=== PATIENT | male | born 1935 | race Caucasian/White ===

== ENCOUNTER 2017-10-22 09:04 | Day surgery (SDC) | payer OTHER ==
[2017-10-21 11:33] VITALS: BMI 26.4
[2017-10-22] MEDS ORDERED: PROPOFOL 20 ML ONE ×3 (09:58)
[2017-10-22 10:45] VITALS: TEMP 98
[2017-10-22 11:01] VITALS: PULSE 61
[2017-10-22 11:48] VITALS: BP 120/70
--- NOTE | 2017-10-25 13:04 | PATH ---
Surgical Pathology Report Patient Name: CHIKA BERRY [facility]. Rec. #: [id number] /Age/Gender: 1935 (Age: 82) / M Account: [id number] Location: ASU-ENDOSCOPY Taken: 10/22/2017 Received: 10/22/2017 Reported: 10/25/2017 Physicians: Bonita Lemus M.D. Specimen(s) Received BX RIGHT COLON POLYP Clinical History Adenoma surveillance Polyp, diverticulosis Final Diagnosis COLON, RIGHT, BIOPSY: TUBULAR ADENOMA. Electronically Signed Conrado Trevino M.D. Gross Description Received in formalin, labeled "biopsy right colon polyp" are 2 rodgers, irregular portions of soft tissue measuring 0.2 cm. in greatest dimension. The specimens are submitted in toto in one cassette. [facility]/10/22/2017 [facility]/10/22/2017
== END 2017-10-22 11:48 | disposition home or self-care (01) ==
LOC: JASU-ENDO 09:04
PROVIDERS: ATTEND Internal Medicine Gastroenterology
PROC: 0DBK8ZX Excision of Ascending Colon, Via Natural or Artificial Opening Endoscopic, Diagnostic (ICD-10-PCS; principal; 2017-10-22 10:00)
DX: Z86.010 Personal history of colon polyps (principal); D12.2 Benign neoplasm of ascending colon; K64.8 Other hemorrhoids; K57.30 Diverticulosis of large intestine without perforation or abscess without bleeding
CPT/HCPCS: 88305-TC

== ENCOUNTER 2019-05-16 08:14 | Day surgery (SDC) | payer OTHER ==
[2019-05-09 12:41] VITALS: BMI 26.0
[2019-05-16] MEDS ORDERED: CYCLOPENTOLATE HCL 1% OPHTH SOLN 2 ML BOTTLE ONE (08:37)
[2019-05-16] MEDS ORDERED: TROPICAMIDE 1% OPHTH SOLN 15 ML BOTTLE ONE (08:37)
[2019-05-16] MEDS ORDERED: OFLOXACIN 0.3% OPHTHALMIC SOLUTION 5 ML BOTTLE ONE (08:37)
[2019-05-16] MEDS ORDERED: KETOROLAC TROMETHAMINE 0.5% EYE DROP 1 DROP DROPS ONE (08:37)
[2019-05-16] MEDS ORDERED: PHENYLEPHRINE 2.5% OPHTH SOLN 15 ML BOTTLE ONE (08:37)
[2019-05-16] MEDS: KETOROLAC TROMETHAMINE 0.5% EYE DROP 1 DROP DROPS OS SCH ×5 (09:15→09:35)
[2019-05-16] MEDS: OFLOXACIN 0.3% OPHTHALMIC SOLUTION 5 ML BOTTLE OS SCH ×5 (09:15→09:35)
[2019-05-16] MEDS: PHENYLEPHRINE 2.5% OPHTH SOLN 15 ML BOTTLE OS SCH ×5 (09:15→09:35)
[2019-05-16] MEDS: CYCLOPENTOLATE HCL 1% OPHTH SOLN 2 ML BOTTLE OS SCH ×5 (09:15→09:35)
[2019-05-16] MEDS: TROPICAMIDE 1% OPHTH SOLN 15 ML BOTTLE OS SCH ×5 (09:15→09:35)
[2019-05-16] MEDS ORDERED: MIDAZOLAM HCL 2 MG/2 ML SINGLE DOSE VIAL ONE ×2 (09:53→10:35)
[2019-05-16] MEDS ORDERED: POVIDONE-IODINE 5% OPHTHALMIC PREP 30 ML SOLUTION ONE (09:56)
[2019-05-16] MEDS ORDERED: EPI-SHUGARCAINE (EPINEPHRINE 0.025% & LIDOCAINE-PF 0.75%) 4ML ONE (09:56)
[2019-05-16] MEDS ORDERED: ACETAMINOPHEN 325 MG TABLET (FP) PO PRN (11:36)
[2019-05-16 11:54] VITALS: TEMP 97.6
[2019-05-16 12:30] VITALS: BP 133/68; PULSE 69
--- NOTE | 2019-05-16 12:55 | OP ---
DATE OF OPERATION: 05/16/2019 PREOPERATIVE DIAGNOSIS: Cataract, left eye, myotic pupil. POSTOPERATIVE DIAGNOSIS: Cataract, left eye, myotic polyp. PROCEDURE: Cataract extraction via phacoemulsification with insertion of posterior chamber lens implant, left eye using iris retractors. SURGEON: Rosalio Thomson MD SILVERWARE BUFFING MACHINE OPERATOR: Lauren Schroeder MD ANESTHESIA: Topical with sedation. ESTIMATED BLOOD LOSS: Less than 1 mL. COMPLICATIONS: None. SPECIMENS: None. DESCRIPTION OF PROCEDURE: The patient was identified in the holding area. After all risks, benefits, and alternatives were explained to the patient, informed consent was obtained. The left eye was marked with a marking pen. The patient then entered the operating room on an eye stretcher. After a formal time-out was performed, topical tetracaine eye drops were instilled onto the left eye. The left eye was then prepped and draped in the usual sterile fashion. An eyelid speculum was placed beneath the eyelid of the left eye. Then it was noted that there was a myotic pupil, which was about 3-4 mm. An inferotemporal paracentesis incision was created using a 15-degree blade. Topical preservative-free epinephrine and preservative-free lidocaine was then injected into the anterior chamber with an adequate dilation. Therefore, 5 equally spaced paracentesis incisions were created using a 15-degree blade, and an iris hook was inserted through each of the 5 created paracentesis incisions. dilated the pupil to about 6 mm. Then viscoelastic was injected into the anterior chamber. A 2.4-mm keratome blade was then used to make a superotemporal incision. A 360-degree continuous curvilinear capsulorrhexis was then created using bent cystotome and Utrata forceps. Hydrodissection was performed using balanced saline solution on a cannula. Phacoemulsification was introduced to disassemble and remove the nucleus in its entirety. Irrigation/aspiration was then used to remove any remaining cortical material from the eye. The capsular bag was reformed using viscoelastic. An Keith Model [id number] with a power of 20.5 diopter serial number [id number] was inspected and found to be defect free and injected into the capsular bag. Irrigation/aspiration was then used to remove any remaining viscoelastic from the eye. All iris hooks were then removed from the eye totaling 5. Then irrigation/aspiration was then used to remove any remaining debris and viscoelastic from the eye. The anterior chamber was reformed using balanced saline solution. Then all wounds were hydrated with balanced saline solution and noted to be watertight. The anterior chamber was deep. The lens was perfectly centered in the capsular bag. The pupil was round. The iris was round, and there was a red reflex present, and the eye had adequate pressure. Topical antibiotic eyedrops and ointment were then administered to the left eye. The eyelid speculum was removed from the left eye. The left eye was shielded. The patient tolerated the procedure well. Left the operating room in stable condition to follow up in the eye clinic tomorrow morning at 10 o'clock. ROSALIO THOMSON M.D. NELI/[id number]
== END 2019-05-16 12:40 | disposition home or self-care (01) ==
LOC: FASU 08:14
PROVIDERS: ATTEND Ophthalmology
PROC: 08RK3JZ Replacement of Left Lens with Synthetic Substitute, Percutaneous Approach (ICD-10-PCS; principal; 2019-05-16 10:42)
DX: H26.9 Unspecified cataract (principal); H57.03 Miosis

== ENCOUNTER 2019-05-23 09:46 | Day surgery (SDC) | payer OTHER ==
[2019-05-18 11:09] VITALS: BMI 26.0
[2019-05-23] MEDS ORDERED: CYCLOPENTOLATE HCL 1% OPHTH SOLN 2 ML BOTTLE ONE (09:53)
[2019-05-23] MEDS ORDERED: KETOROLAC TROMETHAMINE 0.5% EYE DROP 1 DROP DROPS ONE (09:54)
[2019-05-23] MEDS ORDERED: TROPICAMIDE 1% OPHTH SOLN 15 ML BOTTLE ONE (09:54)
[2019-05-23] MEDS ORDERED: PHENYLEPHRINE 2.5% OPHTH SOLN 15 ML BOTTLE ONE (09:54)
[2019-05-23] MEDS ORDERED: OFLOXACIN 0.3% OPHTHALMIC SOLUTION 5 ML BOTTLE ONE (09:54)
[2019-05-23] MEDS: TROPICAMIDE 1% OPHTH SOLN 15 ML BOTTLE OD SCH ×5 (10:20→10:40)
[2019-05-23] MEDS: KETOROLAC TROMETHAMINE 0.5% EYE DROP 1 DROP DROPS OD SCH ×5 (10:20→10:40)
[2019-05-23] MEDS: CYCLOPENTOLATE HCL 1% OPHTH SOLN 2 ML BOTTLE OD SCH ×5 (10:20→10:40)
[2019-05-23] MEDS: PHENYLEPHRINE 2.5% OPHTH SOLN 15 ML BOTTLE OD SCH ×5 (10:20→10:40)
[2019-05-23] MEDS: OFLOXACIN 0.3% OPHTHALMIC SOLUTION 5 ML BOTTLE OD SCH ×5 (10:20→10:40)
[2019-05-23] MEDS ORDERED: MIDAZOLAM HCL 2 MG/2 ML SINGLE DOSE VIAL ONE ×2 (10:48→11:34)
[2019-05-23] MEDS ORDERED: POVIDONE-IODINE 5% OPHTHALMIC PREP 30 ML SOLUTION ONE (10:51)
[2019-05-23] MEDS ORDERED: EPI-SHUGARCAINE (EPINEPHRINE 0.025% & LIDOCAINE-PF 0.75%) 4ML ONE (10:51)
[2019-05-23] MEDS ORDERED: ACETAMINOPHEN 325 MG TABLET (FP) PO PRN (12:45)
[2019-05-23 13:02] VITALS: TEMP 98.3
[2019-05-23 13:33] VITALS: BP 132/69; PULSE 73
--- NOTE | 2019-05-23 14:09 | OP ---
DATE OF OPERATION: 05/23/2019 PREOPERATIVE DIAGNOSIS: Cataract, right eye. POSTOPERATIVE DIAGNOSIS: Cataract, right eye. PROCEDURE: Cataract extraction via phacoemulsification with insertion of posterior chamber lens implant, right eye. SURGEON: Rosalio Thomson MD RULING MACHINE OPERATOR: Lauren Schroeder MD ANESTHESIA: Topical with sedation. ESTIMATED BLOOD LOSS: Less than 1 mL. COMPLICATIONS: None. SPECIMENS: None. DESCRIPTION OF PROCEDURE: The patient was identified in the holding area. After all risks, benefits, and alternatives were explained to the patient, informed consent was obtained. The right eye was marked with a marking pen. The patient then entered the operating room on an eye stretcher, and after a formal time-out was performed, topical tetracaine eye drops were instilled onto the right eye. The patient was then instructed to sit up and look straight ahead, and the cardinal axes of astigmatism were marked using a Toric bubble marker and a Toric marking pen. The patient was then instructed to lay back down, and the right eye was prepped and draped in the usual sterile fashion. An eyelid speculum was placed beneath the eyelid of the right eye. Then the axis of astigmatism was marked onto the cornea using a Toric dial and a Toric marking pen, which was noted to be 165 degrees. Then a superotemporal paracentesis incision was created using a 15-degree blade. Topical preservative-free epinephrine and preservative-free lidocaine were then injected into the anterior chamber. It was then noted that the pupil was still myotic, and due to the fact that the patient was on Flomax, it was decided to put iris hooks into the eye to capture and dilate the pupil to about 6 mm. Therefore, 5 equally spaced paracentesis incisions were created using a 15-degree blade, and an iris hook was inserted through each of the 5 paracentesis incisions to again capture the pupil and then dilate to about 6 mm. Then viscoelastic was injected into the anterior chamber. A 2.4-mm keratome blade was then used to make an infratemporal incision. A 360-degree continuous curvilinear capsulorrhexis was then created using bent cystotome and Utrata forceps. Hydrodissection was performed using balanced saline solution on a cannula. Phacoemulsification was introduced to disassemble and remove the nucleus in its entirety. Irrigation/aspiration was then used to remove any remaining cortical material from the eye. The capsular bag was reformed using viscoelastic. An Keith Model [id number] with a power of 20.0 diopter serial number [id number] was inspected and found to be defect free and injected into the capsular bag. Irrigation/aspiration was then used to remove any remaining viscoelastic from the eye. The intraocular lens was rotated so that the axis of astigmatism on the optic matched the axis of astigmatism on the cornea, which was noted to be 165 degrees. Then all iris hooks were removed from the eye completely and irrigation, aspiration was then used a final time to remove any remaining debris from the eye. Then all wounds were hydrated with balanced saline solution and noted to be watertight. The lens was perfectly centered in the capsular bag with the axis of astigmatism at 165 degrees. The anterior chamber was deep. The eye had an adequate pressure, and there was red reflex present. Topical antibiotic eyedrops and ointment were then administered to the right eye. The eyelid speculum was removed from the right eye. The right eye was shielded. The patient tolerated the procedure well. Left the operating room in stable condition to follow up in the eye clinic tomorrow morning at 10 o'clock. ROSALIO THOMSON M.D. [id number]
== END 2019-05-23 13:40 | disposition home or self-care (01) ==
LOC: FASU 09:46
PROVIDERS: ATTEND Ophthalmology
PROC: 08RJ3JZ Replacement of Right Lens with Synthetic Substitute, Percutaneous Approach (ICD-10-PCS; principal; 2019-05-23 11:35)
DX: H26.9 Unspecified cataract (principal)

== ENCOUNTER 2019-07-11 17:50 | Inpatient (IN) | payer OTHER ==
--- NOTE | 2019-07-11 18:03 | PDOC ---
History of Present Illness - General Chief Complaint: Respiratory Stated Complaint: FEVER & COUGH Time Seen by Provider: 07/11/19 18:03 - History of Present Illness Initial Comments: 07/11/19 18:50 Chief complaint: Shaking chills HPI: Sudden onset of fever today with shaking chills. Worsening of chronic cough and intermittent shortness of breath with coughing. Review of systems: No chest pain, abdominal pain, vomiting or diarrhea, dysuria frequency urgency hesitancy or hematuria, new skin rashes. Remainder of systems reviewed and negative Past medical history: Chronic cough,, no definitive diagnosis. BPH, COPD, HBP, elevated cholesterol, coronary artery disease. Primary physician Dr. Gibbons and Dr. Pink, cardiology. Social history: Lives with family, denies drugs alcohol or tobacco. Breathing problems have limited his activity Family history: Reviewed and noncontributory Physical exam: Alert, mild respiratory distress with intractable coughing, no definite tachypnea or dyspnea between coughing spells. Cooperative Temperature 103 degrees. Remainder vital signs stable ENT clear Neck supple without bruit mass or nodes Chest with decreased breath sounds bilaterally, occasional end expiratory wheezes at both bases posteriorly, no rales or rhonchi. Patient is not tachypneic or dyspneic between coughing spells CV S1-S2 distant without murmur rub or gallop pulses full and symmetric no JVD or edema no bruits Abdomen soft nontender without mass organomegaly No CVAT Neurological C2 to 12 intact. Strength full and symmetric. No focal sensorimotor deficits. Gait stable and unimpaired Extremities no CCE Impression: Sudden onset of febrile illness, superimposed on worsening cough. Rule out pneumonia, severe bronchitis, or occult UTI Plan: CBC and chemistries, urinalysis blood and urine cultures chest x-ray, intravenous fluids, analgesic/antipyretic, and further evaluation depending on results of lab work and imaging studies. Past History - Past Medical History Allergies/Adverse Reactions: Allergies Allergy/AdvReac Type Severity Reaction Status Date / Time clindamycin Allergy Verified 05/23/19 10:18 Home Medications: Ambulatory Orders Aspirin [ASA -] 81 mg PO DAILY 06/25/14 Atorvastatin Ca [Lipitor] 10 mg PO Q48H 06/25/14 Folic Acid - 1 tab PO DAILY 06/25/14 Albuterol Sulfate [Proair Hfa -] 1 - 2 inh PO QID #1 inhaler 06/27/14 Amlodipine Besylate [Norvasc -] 2.5 mg PO DAILY #30 tablet 06/27/14 Budesonide/Formeterol Fumarate [SYMBICORT 160/4.5mcg -] 2 inh IH BID #1 inhaler 06/27/14 Tiotropium [place] [Spiriva] 1 inh PO DAILY #1 inhaler 06/27/14 Famotidine [Pepcid] 40 mg PO ASDIR 10/21/17 Multivitamin [Multiple Vitamins] 1 each PO DAILY 10/21/17 [place]-3 Acid Ethyl Esters 1 gm PO DAILY 10/21/17 Tamsulosin HCl 0.4 mg PO DAILY 10/21/17 Vitamin B Complex 1 each PO DAILY 10/21/17 Esomeprazole Magnesium [Nexium 24Hr] 40 mg PO ASDIR 05/09/19 Prednisolone Acetate/Pf [Prednisolone Acet 1% Eye Drop] 5 ml OS BID 07/11/19 Prednisone 5 mg PO ASDIR 07/11/19 Sodium Chloride [Daria-128] 1 applic OS HS 07/11/19 Sodium Chloride [Daria-128] 15 ml OS BID 07/11/19 Anemia: No Asthma: (EMPHYSEMA) 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) Cardiac Disorders: Yes (ASHD, 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, MODERATE AORTIC STENOSIS ) CVA: No COPD: Yes CHF: No Dementia: No Diabetes: No GI Disorders: Yes (GERD, COLON ADENOMAS, DIVERTICULOSIS) Disorders: Yes (BPH) HTN: Yes Hypercholesterolemia: Yes Liver Disease: No Psychiatric Problems: Yes Seizures: No Thyroid Disease: No - Surgical History Abdominal Surgery: No Appendectomy: No Cardiac Surgery: No Cholecystectomy: No Lung Surgery: No Neurologic Surgery: No Orthopedic Surgery: Yes (ROTATOR CUFF RIGHT SHOULDER) - Immunization History Immunization Up to Date: No - Psycho Social/Smoking Cessation Hx Smoking History: Former smoker Have you smoked in the past 12 months: No Number of Cigarettes Smoked Daily: 0 If you are a former smoker, when did you quit?: 1963 Hx Alcohol Use: Yes (WINE OCC) Drug/Substance Use Hx: No Substance Use Type: None Hx Substance Use Treatment: No ED Treatment Course - LABORATORY CBC & Chemistry Diagram: 07/12/19 08:37 07/12/19 08:37 Medical Decision Making - Medical Decision Making 07/13/19 07:32 Patient clinically and hemodynamically stable. Except for fever, no significant signs of sepsis. Laboratory studies pending. Signed out to Dr. Guevara 7 PM pending lab results, further diagnostic testing and treatment. Discharge - Discharge Information Problems reviewed: Yes Clinical Impression/Diagnosis: Pneumonia Qualifiers: Pneumonia type: due to unspecified organism Laterality: bilateral Lung location : lower lobe of lung Qualified Code(s): J18.9 - Pneumonia, unspecified organism Condition: Good - Follow up/Referral - Patient Discharge Instructions - Post Discharge Activity
[2019-07-11] MEDS ORDERED: SODIUM CHLORIDE 1,000 ML IV STA (18:05)
[2019-07-11 19:19] LABS: BASO % 2.6 % (0-2.0); EOS % 0.2 % (0-4.5); HEMATOCRIT 47.6 % (35.4-49); HEMOGLOBIN 15.8 GM/dl (11.7-16.9); LYMPH % 3.9 % (8-40); MCH 30.8 pg (25.7-33.7); MCHC 33.2 g/dl (32.0-35.9); MEAN CELL VOLUME 92.7 fl (80-96); MONO % 2.9 % (3.8-10.2); NEUT % 90.4 % (42.8-82.8); PLATELET COUNT 214 K/MM3 (134-434); RBC 5.13 M/mm3 (4.00-5.60); RDW 12.3 % (11.9-15.9); WHITE BLOOD COUNT 13.7 K/mm3 (4.0-10.8)
[2019-07-11] MEDS ORDERED: CEFTRIAXONE 1 GM in DEXTROSE 5%-WATER - 50 ML IVPB ONE (19:34)
[2019-07-11] MEDS ORDERED: ACETAMINOPHEN INJECTION 100 ML IVPB ONE (19:45)
[2019-07-11] MEDS ORDERED: ACETAMINOPHEN 1000 MG/100 ML VIAL (NON FORMULARY) IVPB ONE (19:45)
[2019-07-11] MEDS ORDERED: cefTRIAXone SODIUM 1 GM VIAL ONE (19:45)
[2019-07-11] MEDS ORDERED: AZITHROMYCIN IVPB 500 MG in DEXTROSE 5%-WATER - 250 ML IVPB ONE (19:48)
[2019-07-11 20:01] LABS: ALBUMIN 4.1 g/dl (3.4-5.0); BILIRUBIN,TOTAL 0.6 mg/dl (0.2-1); CALCIUM 8.9 mg/dl (8.5-10); CREATININE 1.3 mg/dl (0.55-1.3); POTASSIUM 3.9 mmol/L (3.5-5.1); TOT PROT 7.2 g/dl (6.4-8.2)
[2019-07-11] MEDS ORDERED: AZITHROMYCIN 500 MG VIAL IVPB ONE (20:03)
--- NOTE | 2019-07-11 20:23 | PDOC ---
*Physical Exam - Vital Signs Last Vital Signs Temp Pulse Resp BP Pulse Ox 103.0 F H 94 H 20 125/70 94 L 07/11/19 19:40 07/11/19 20:00 07/11/19 19:40 07/11/19 19:40 07/11/19 20:00 ED Treatment Course - LABORATORY CBC & Chemistry Diagram: 07/11/19 19:13 07/11/19 19:49 - ADDITIONAL ORDERS Additional order review: Laboratory Results 07/11/19 07/11/19 19:13 19:13 Sodium Cancelled Potassium Cancelled Chloride Cancelled Carbon Dioxide Cancelled Anion Gap Cancelled BUN Cancelled Creatinine Cancelled Est GFR (CKD-EPI)AfAm Cancelled Est GFR (CKD-EPI)NonAf Cancelled Random Glucose Cancelled Lactic Acid Cancelled Calcium Cancelled Total Bilirubin Cancelled AST Cancelled ALT Cancelled Alkaline Phosphatase Cancelled Creatine Kinase Cancelled Total Protein Cancelled Albumin Cancelled 07/11/19 19:13 RBC 5.13 MCV 92.7 MCHC 33.2 RDW 12.3 MPV 9.0 Neutrophils % 90.4 H D Lymphocytes % 3.9 L D Monocytes % 2.9 L Eosinophils % 0.2 D Basophils % 2.6 H D - Medications Given in the ED: ED Medications Discontinued Medications Generic Name Dose Route Start Last Admin Trade Name Thomasq PRN Reason Stop Dose Admin Acetaminophen 1,000 mg 07/11/19 19:45 07/11/19 19:45 Ofirmev Injection - IVPB 07/11/19 19:46 1,000 mg ONCE ONE Administration Sodium Chloride 1,000 mls @ 1,000 mls/hr 07/11/19 18:05 07/11/19 19:05 Normal Saline - IV 07/11/19 19:04 1,000 mls/hr ASDIR STA Administration Ceftriaxone Sodium 1 gm/ 50 mls @ 200 mls/hr 07/11/19 19:34 07/11/19 19:56 Dextrose IVPB 07/11/19 19:48 200 mls/hr ONCE ONE Administration Protocol ED Progress Note - Progress Note Progress Note: 07/11/19 20:22 Care of this patient was transferred to pa from Dr. Gurvinder molina at 1900 hrs. Patient is an 84-year-old male who comes in with cough and congestion. Patient has a fever of 103 here in the ED. Patient has a sepsis work-up initiated that is still pretty much all pending. Patient source is most likely pneumonia. Patient's chest x-ray does not show a definite infiltrate however there is a probable infiltrate bilateral. Antibiotics initiated including ceftriaxone and azithromycin. Influenza screen sent as well as MRSA screen as patient has a questionable history of MRSA in the past. 07/11/19 20:58 Patient will be admitted to an inpatient bed for pneumonia. Discharge - Discharge Information Problems reviewed: Yes Clinical Impression/Diagnosis: Pneumonia Qualifiers: Pneumonia type: due to unspecified organism Laterality: bilateral Lung location : lower lobe of lung Qualified Code(s): J18.9 - Pneumonia, unspecified organism Condition: Good - Admission Yes - Follow up/Referral Referrals: Liban Gibbons MD [Primary Care Provider] - - Patient Discharge Instructions - Post Discharge Activity
[2019-07-11 22:59] VITALS: BMI 26.4
[2019-07-11] MEDS ORDERED: SODIUM CHLORIDE 1,000 ML IV SCH (23:30)
[2019-07-11] MEDS: ATORVASTATIN CA 10 MG TABLET (FP) PO SCH (23:44)
[2019-07-12] MEDS: ACETAMINOPHEN 325 MG TABLET (FP) PO PRN (00:54)
[2019-07-12] MEDS: ALBUTEROL SO4 2.5/IPRATROPIUM 0.5 INH SOL 3 ML VIAL.NEB. NEB SCH ×4 (06:16→20:30)
[2019-07-12] MEDS: TAMSULOSIN HCL 0.4 MG CAP PO SCH (08:47)
[2019-07-12 09:05] LABS: EOS % 0.3 % (0-4.5); HEMATOCRIT 39.6 % (35.4-49); HEMOGLOBIN 13.2 GM/dl (11.7-16.9); MCH 30.8 pg (25.7-33.7); MCHC 33.3 g/dl (32.0-35.9); MEAN CELL VOLUME 92.4 fl (80-96); MEAN PLT VOLUME 9.2 fl (7.5-11.1); MONO % 10.5 % (3.8-10.2); NEUT % 82.2 % (42.8-82.8); PLATELET COUNT 164 K/MM3 (134-434); RBC 4.28 M/mm3 (4.00-5.60); RDW 12.1 % (11.9-15.9); WHITE BLOOD COUNT 15.5 K/mm3 (4.0-10.8)
[2019-07-12] MEDS: FOLIC ACID 1 MG TABLET (FP) PO SCH (09:13)
[2019-07-12] MEDS: ASPIRIN 81 MG CHEWABLE TABLETS PO SCH (09:13)
[2019-07-12] MEDS: amLODIPine BESYLATE 2.5 MG TABLET (FP) PO SCH (09:14)
[2019-07-12] MEDS: PANTOPRAZOLE 40 MG TABLET (FP) PO SCH (09:14)
[2019-07-12] MEDS: CEFTRIAXONE 1 GM in DEXTROSE 5%-WATER - 50 ML IVPB SCH (09:14)
[2019-07-12 09:15] LABS: ALBUMIN 3.4 g/dl (3.4-5.0); BILIRUBIN,TOTAL 0.9 mg/dl (0.2-1); CALCIUM 8.4 mg/dl (8.5-10); CREATININE 1.1 mg/dl (0.55-1.3); MAGNESIUM 1.8 mg/dL (1.8-2.4); POTASSIUM 3.5 mmol/L (3.5-5.1); TOT PROT 5.8 g/dl (6.4-8.2)
[2019-07-12] MEDS ORDERED: SODIUM CHLORIDE OS SCH ×2 (10:00→22:00)
[2019-07-12] MEDS ORDERED: PATIENT'S OWN MEDICATION (NON-FORMULARY) (Prednisolone Acetate/Pf [Prednisolone Acet 1% Ey OS SCH (10:00)
[2019-07-12] MEDS ORDERED: [UNRECOGNIZED DRUG - OTHER] OS SCH (10:00)
[2019-07-12] MEDS: BUDESONIDE/FORMETEROL FUMARATE 160/4.5 mcg INHALER IH SCH ×2 (10:21→21:24)
[2019-07-12] MEDS: AZITHROMYCIN IVPB 250 MG in DEXTROSE 5%-WATER - 250 ML IVPB SCH (10:22)
[2019-07-12] MEDS: TIOTROPIUM BROMIDE 2.5 MCG (SPIRIVA) RESPIMAT INHALER IH SCH (10:50)
--- NOTE | 2019-07-12 17:44 | EKG ---
Test Reason : Blood Pressure : / mmHG Vent. Rate : 104 BPM Atrial Rate : 104 BPM P-R Int : 162 ms QRS Dur : 074 ms QT Int : 308 ms P-R-T Axes : 077 -41 048 degrees QTc Int : 405 ms SINUS TACHYCARDIA POSSIBLE LEFT ATRIAL ENLARGEMENT LEFT AXIS DEVIATION ABNORMAL ECG WHEN COMPARED WITH ECG OF 27-JUL-2014 18:05, NO SIGNIFICANT CHANGE WAS FOUND BASELINE ARTIFACT Confirmed by LUZMARIA QUINN, CHANTALE ([id number]) on 07/12/2019 5:43:45 PM Referred By: DR VELA Confirmed By:CHANTALE DUTTA MD
--- NOTE | 2019-07-12 17:58 | HP ---
Documentation entered by Radha Bravo SCRIBE, acting as scribe for Vani Austin NP. CHIEF COMPLAINT: Fever, cough PCP: Dr. Gibbons Technology Resource Teacher: Joesph HISTORY OF PRESENT ILLNESS: Patient is an 84 year-old male with a PMH significant for HTN, HLD, CAD, COPD, chronic sinusitis, and BPH. Patient has had a chronic cough and fatigue for several months and has been seeing Dr. Gibbons for these complaints. Had CT chest on 06/15 which was reportedly unremarkable. Patient presented to [facility] for worsening cough, shaking chills, and SOB. He reported a fever at home to 103. Patient denies nausea, vomiting, diarrhea, or constipation. He denies chest pain , palpitations, diaphoresis, or lower extremity edema. He denies night sweats, hemoptysis, weight loss. 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 Drugs: none reported. Family history: father lung cancer, mother asthma Allergies clindamycin Allergy (Verified 05/23/19 10:18) HOME MEDICATIONS: Home Medications Medication Instructions Recorded Aspirin [ASA -] 81 mg PO DAILY 06/25/14 Atorvastatin Ca [Lipitor] 10 mg PO Q48H 06/25/14 Folic Acid - 1 tab PO DAILY 06/25/14 Albuterol Sulfate [Proair Hfa -] 1 - 2 inh PO QID #1 inhaler 06/27/14 Amlodipine Besylate [Norvasc -] 2.5 mg PO DAILY #30 tablet 06/27/14 Budesonide/Formeterol Fumarate 2 inh IH BID #1 inhaler 06/27/14 [SYMBICORT 160/4.5mcg -] Tiotropium [place] [Spiriva] 1 inh PO DAILY #1 inhaler 06/27/14 Famotidine [Pepcid] 40 mg PO ASDIR 10/21/17 Multivitamin [Multiple Vitamins] 1 each PO DAILY 10/21/17 [place]-3 Acid Ethyl Esters 1 gm PO DAILY 10/21/17 Tamsulosin HCl 0.4 mg PO DAILY 10/21/17 Vitamin B Complex 1 each PO DAILY 10/21/17 Esomeprazole Magnesium [Nexium 40 mg PO ASDIR 05/09/19 24Hr] Prednisolone Acetate/Pf 5 ml OS BID 07/11/19 [Prednisolone Acet 1% Eye Drop] Prednisone 5 mg PO ASDIR 07/11/19 Sodium Chloride [Daria-128] 1 applic OS HS 07/11/19 Sodium Chloride [Daria-128] 15 ml OS BID 07/11/19 REVIEW OF SYSTEMS CONSTITUTIONAL: +fever,+chills. Absent: generalized weakness,diaphoresis, malaise, loss of appetite, weight change HEENT: Absent: rhinorrhea, nasal congestion, throat pain, throat swelling, difficulty swallowing, mouth swelling, ear pain, eye pain, visual changes CARDIOVASCULAR: Absent: chest pain, syncope, palpitations, irregular heart rate, lightheadedness , peripheral edema RESPIRATORY: +cough,+shortness of breath Absent: dyspnea with exertion, orthopnea, wheezing, stridor, hemoptysis GASTROINTESTINAL: Absent: abdominal pain, abdominal distension, nausea, vomiting, diarrhea, constipation, melena, hematochezia GENITOURINARY: Absent: dysuria, frequency, urgency, hesitancy, hematuria, flank pain, genital pain MUSCULOSKELETAL: Absent: myalgia, arthralgia, joint swelling, back pain, neck pain SKIN: Absent: rash, itching, pallor HEMATOLOGIC/IMMUNOLOGIC: Absent: easy bleeding, easy bruising, lymphadenopathy, frequent infections ENDOCRINE: Absent: unexplained weight gain, unexplained weight loss, heat intolerance, cold intolerance NEUROLOGIC: Absent: headache, focal weakness or paresthesias, dizziness, unsteady gait, seizure, mental status changes, bladder or bowel incontinence PSYCHIATRIC: Absent: anxiety, depression, suicidal or homicidal ideation, hallucinations. PHYSICAL EXAMINATION Vital Signs - 24 hr 07/11/19 07/11/19 07/11/19 18:02 19:40 20:00 Temperature 103.0 F H 103.0 F H Pulse Rate 108 H 94 H Pulse Rate [ 91 H 98 H Apical] Respiratory 22 H 20 21 H Rate Blood Pressure 137/85 Blood Pressure 125/70 114/67 [Right Arm] O2 Sat by Pulse 94 L 94 L 94 L Oximetry (%) 07/11/19 07/11/19 07/11/19 21:00 21:50 22:00 Temperature 99 F Pulse Rate 93 H Pulse Rate [ 97 H Apical] Respiratory 17 18 Rate Blood Pressure 100/62 Blood Pressure 112/67 [Right Arm] O2 Sat by Pulse 94 L 96 96 Oximetry (%) 07/11/19 07/12/19 07/12/19 23:12 00:51 03:32 Temperature 98.6 F 99.1 F 98.4 F Pulse Rate 79 Pulse Rate [ Apical] Respiratory 18 Rate Blood Pressure 119/51 L Blood Pressure [Right Arm] O2 Sat by Pulse 93 L Oximetry (%) 07/12/19 07/12/19 05:52 05:53 Temperature 99.1 F Pulse Rate 82 Pulse Rate [ Apical] Respiratory 17 Rate Blood Pressure 120/60 Blood Pressure [Right Arm] O2 Sat by Pulse 94 L Oximetry (%) GENERAL: Awake, alert, and fully oriented, in no acute distress. HEAD: Normal with no signs of trauma. EYES: Pupils equal, round and reactive to light, extraocular movements intact, sclera anicteric, conjunctiva clear. No lid lag. EARS, NOSE, THROAT: Ears normal, nares patent, oropharynx clear without exudates. Moist mucous membranes. NECK: Normal range of motion, supple without lymphadenopathy, JVD, or masses. LUNGS: incessant cough with expiration, no adventitious sounds appreciated HEART: Regular rate and rhythm, normal S1 and S2 ABDOMEN: Soft, nontender, not distended MUSCULOSKELETAL: Normal range of motion at all joints. No bony deformities or tenderness. No CVA tenderness. UPPER EXTREMITIES: 2+ pulses, warm, well-perfused. No cyanosis. No clubbing. No peripheral edema. LOWER EXTREMITIES: 2+ pulses, warm, well-perfused. No calf tenderness. No peripheral edema. NEUROLOGICAL: Cranial nerves II-XII intact. Normal speech. Normal gait. PSYCHIATRIC: Cooperative. Good eye contact. Appropriate mood and affect. SKIN: Warm, dry, normal turgor Laboratory Results - last 24 hr 07/11/19 07/11/19 07/11/19 19:13 19:13 19:13 WBC 13.7 H RBC 5.13 Hgb 15.8 Hct 47.6 MCV 92.7 MCH 30.8 MCHC 33.2 RDW 12.3 Plt Count 214 D MPV 9.0 Absolute Neuts (auto) 12.4 Neutrophils % 90.4 H D Lymphocytes % 3.9 L D Monocytes % 2.9 L Eosinophils % 0.2 D Basophils % 2.6 H D Sodium Cancelled Potassium Cancelled Chloride Cancelled Carbon Dioxide Cancelled Anion Gap Cancelled BUN Cancelled Creatinine Cancelled Est GFR (CKD-EPI)AfAm Cancelled Est GFR (CKD-EPI)NonAf Cancelled Random Glucose Cancelled Lactic Acid Cancelled Calcium Cancelled Magnesium Total Bilirubin Cancelled AST Cancelled ALT Cancelled Alkaline Phosphatase Cancelled Creatine Kinase Cancelled Creatine Kinase Index CK-MB (CK-2) Troponin I Total Protein Cancelled Albumin Cancelled Urine Color Urine Appearance Urine pH Urine Protein Urine Glucose (UA) Urine Ketones Urine Blood Urine Nitrite Urine Bilirubin Urine Urobilinogen Ur Leukocyte Esterase Influenza A (Rapid) Influenza B (Rapid) 07/11/19 07/11/19 07/11/19 19:23 19:28 19:49 WBC RBC Hgb Hct MCV MCH MCHC RDW Plt Count MPV Absolute Neuts (auto) Neutrophils % Lymphocytes % Monocytes % Eosinophils % Basophils % Sodium 134 L Potassium 3.9 Chloride 104 Carbon Dioxide 24 Anion Gap 6 L BUN 34.0 H Creatinine 1.3 Est GFR (CKD-EPI)AfAm 58.89 Est GFR (CKD-EPI)NonAf 50.81 Random Glucose 107 H Lactic Acid 2.0 Calcium 8.9 Magnesium Total Bilirubin 0.6 AST 23 ALT 26 Alkaline Phosphatase 61 Creatine Kinase 273 Creatine Kinase Index 1.6 CK-MB (CK-2) 4.6 H Troponin I Total Protein 7.2 Albumin 4.1 Urine Color Yellow Urine Appearance Clear Urine pH 5.0 Urine Protein Negative Urine Glucose (UA) Negative Urine Ketones Trace Urine Blood Negative Urine Nitrite Negative Urine Bilirubin Negative Urine Urobilinogen 0.2 Ur Leukocyte Esterase Negative Influenza A (Rapid) Influenza B (Rapid) 07/11/19 07/11/19 07/12/19 19:49 20:14 08:37 WBC 15.5 H RBC 4.28 Hgb 13.2 Hct 39.6 D MCV 92.4 MCH 30.8 MCHC 33.3 RDW 12.1 Plt Count 164 D MPV 9.2 Absolute Neuts (auto) 12.8 Neutrophils % 82.2 Lymphocytes % 7.0 L D Monocytes % 10.5 H D Eosinophils % 0.3 Basophils % 0.0 Sodium Potassium Chloride Carbon Dioxide Anion Gap BUN Creatinine Est GFR (CKD-EPI)AfAm Est GFR (CKD-EPI)NonAf Random Glucose Lactic Acid Calcium Magnesium Total Bilirubin AST ALT Alkaline Phosphatase Creatine Kinase Creatine Kinase Index CK-MB (CK-2) Troponin I < 0.03 Total Protein Albumin Urine Color Urine Appearance Urine pH Urine Protein Urine Glucose (UA) Urine Ketones Urine Blood Urine Nitrite Urine Bilirubin Urine Urobilinogen Ur Leukocyte Esterase Influenza A (Rapid) Negative Influenza B (Rapid) Negative 07/12/19 08:37 WBC RBC Hgb Hct MCV MCH MCHC RDW Plt Count MPV Absolute Neuts (auto) Neutrophils % Lymphocytes % Monocytes % Eosinophils % Basophils % Sodium 137 Potassium 3.5 Chloride 104 Carbon Dioxide 22 Anion Gap 11 BUN 27.0 H Creatinine 1.1 Est GFR (CKD-EPI)AfAm 72.07 Est GFR (CKD-EPI)NonAf 62.19 Random Glucose 93 Lactic Acid Calcium 8.4 L Magnesium 1.8 Total Bilirubin 0.9 AST 20 ALT 21 Alkaline Phosphatase 44 L D Creatine Kinase Creatine Kinase Index CK-MB (CK-2) Troponin I Total Protein 5.8 L Albumin 3.4 Urine Color Urine Appearance Urine pH Urine Protein Urine Glucose (UA) Urine Ketones Urine Blood Urine Nitrite Urine Bilirubin Urine Urobilinogen Ur Leukocyte Esterase Influenza A (Rapid) Influenza B (Rapid) ASSESSMENT/PLAN: 84 year-old male with a PMH significant for HTN, HLD, CAD, COPD, chronic sinusitis, and BPH admitted for severe sepsis secondary to CAP. Severe sepsis secondary to CAP Chronic COPD --T 103, WBC 13.7k, p108, lactic acid 2.0 x 2, new RLL infiltrate --fluid bolused 1L in ED, will not aggressively fluid resuscitrate due to age , comorbidities; continue NS hourly rate --ceftriaxone (day 1), azithro (day #1) --duonebs, Symbicort, Spiriva --titrate SpO2 to <95% --rapid flu neg; cultures pending; respiratory viral COVER OPERATOR panel pending Hypertension --BP stable --continue amlodipine Hyperlipidemia --continue Lipitor Coronary artery disease --continue ASA, statin BPH --continue tamsulosin FEN Fluids: NS@83mL/hr Electrolytes: replete as indicated Nutrition: low sodium DVT prophylaxis: subq lovenox Physical therapy Dispo: continues to require inpatient care. Full code. Visit type - Emergency Visit Emergency Visit: Yes ED Registration Date: 07/11/19 Care time: The patient presented to the Emergency Department on the above date and was hospitalized for further evaluation of their emergent condition. - New Patient This patient is new to me today: Yes Date on this admission: 07/12/19 - Critical Care Critical Care patient: No Vani Austin DISTRIBUTION SPEC: This documentation has been prepared by the Lawrence olivera Maria, SCRIBE, under my direction and personally reviewed by me in its entirety. I confirm that the documentation accurately reflects all work, treatment, procedures, and medical decision making performed by me.
[2019-07-12] MEDS: ENOXAPARIN NA (PORCINE) 40 MG/0.4 ML DISP.SYRIN SQ SCH (18:16)
[2019-07-12] MEDS ORDERED: [UNRECOGNIZED DRUG - OTHER] OS SCH (22:00)
[2019-07-13] MEDS ORDERED: PT OWN MED DRAWER 7, Y5N ONE ×2 (09:20→20:40)
[2019-07-13] MEDS: ALBUTEROL SO4 2.5/IPRATROPIUM 0.5 INH SOL 3 ML VIAL.NEB. NEB SCH ×4 (10:09→20:00)
[2019-07-13] MEDS: TAMSULOSIN HCL 0.4 MG CAP PO SCH (10:13)
[2019-07-13] MEDS: ASPIRIN 81 MG CHEWABLE TABLETS PO SCH (10:13)
[2019-07-13] MEDS: amLODIPine BESYLATE 2.5 MG TABLET (FP) PO SCH (10:13)
[2019-07-13] MEDS: FOLIC ACID 1 MG TABLET (FP) PO SCH (10:14)
[2019-07-13] MEDS: ENOXAPARIN NA (PORCINE) 40 MG/0.4 ML DISP.SYRIN SQ SCH (10:14)
[2019-07-13] MEDS: PANTOPRAZOLE 40 MG TABLET (FP) PO SCH (10:14)
[2019-07-13] MEDS: CEFTRIAXONE 1 GM in DEXTROSE 5%-WATER - 50 ML IVPB SCH (10:14)
[2019-07-13] MEDS: TIOTROPIUM BROMIDE 2.5 MCG (SPIRIVA) RESPIMAT INHALER IH SCH (10:15)
[2019-07-13] MEDS: BUDESONIDE/FORMETEROL FUMARATE 160/4.5 mcg INHALER IH SCH ×2 (10:15→22:50)
[2019-07-13] MEDS: AZITHROMYCIN IVPB 250 MG in DEXTROSE 5%-WATER - 250 ML IVPB SCH (10:15)
[2019-07-13 11:20] LABS: BASO % 0.2 % (0-2.0); EOS % 2.9 % (0-4.5); HEMATOCRIT 39.6 % (35.4-49); HEMOGLOBIN 13.1 GM/dl (11.7-16.9); LYMPH % 10.9 % (8-40); MCH 30.9 pg (25.7-33.7); MEAN CELL VOLUME 93.4 fl (80-96); MEAN PLT VOLUME 8.5 fl (7.5-11.1); MONO % 4.3 % (3.8-10.2); NEUT % 81.7 % (42.8-82.8); PLATELET COUNT 169 K/MM3 (134-434); RBC 4.24 M/mm3 (4.00-5.60); RDW 12.6 % (11.9-15.9)
[2019-07-13 11:26] LABS: ALBUMIN 3.1 g/dl (3.4-5.0); BILIRUBIN,TOTAL 0.5 mg/dl (0.2-1); CALCIUM 7.9 mg/dl (8.5-10); CREATININE 1.2 mg/dl (0.55-1.3); POTASSIUM 3.3 mmol/L (3.5-5.1)
[2019-07-13] MEDS: guaiFENesin/D-METHORPHAN HB 10 ML UNIT-DOSE CUPS PO PRN (13:09)
--- NOTE | 2019-07-13 14:50 | PN ---
Documentation entered by Radha Bravo SCRIBE, acting as scribe for Vani Austin NP. Physical Exam: SUBJECTIVE: Patient seen and examined at bedside. Voices no complaints. Denies fever or chills. Patient states having eye hemorrhage on his left eye for x5 days. Denies any pain to his eye. OBJECTIVE: Vital Signs Period Temp Pulse Resp BP Sys/Keith Pulse Ox Last 24 Hr 97.9 F-98.6 F 68-102 18-20 114-149/50-79 92-95 GENERAL: The patient is awake, alert, and fully oriented, in no acute distress. EYES:Conjunctival hemorrhage, left lateral eye. LUNGS:Mild cough. CTA. HEART: Regular rate and rhythm, S1, S2 ABDOMEN: Soft, nontender, nondistended EXTREMITIES: 2+ pulses, warm, well-perfused, no edema. NEUROLOGICAL: Cranial nerves II through XII grossly intact. Normal speech, steady gait SKIN: Warm, dry, normal turgor Laboratory Results - last 24 hr 07/12/19 07/12/19 07/12/19 08:20 08:37 08:37 WBC 15.5 H RBC 4.28 Hgb 13.2 Hct 39.6 D MCV 92.4 MCH 30.8 MCHC 33.3 RDW 12.1 Plt Count 164 D MPV 9.2 Absolute Neuts (auto) 12.8 Neutrophils % 82.2 Lymphocytes % 7.0 L D Monocytes % 10.5 H D Eosinophils % 0.3 Basophils % 0.0 Sodium 137 Potassium 3.5 Chloride 104 Carbon Dioxide 22 Anion Gap 11 BUN 27.0 H Creatinine 1.1 Est GFR (CKD-EPI)AfAm 72.07 Est GFR (CKD-EPI)NonAf 62.19 Random Glucose 93 Lactic Acid 2.0 Calcium 8.4 L Magnesium 1.8 Total Bilirubin 0.9 AST 20 ALT 21 Alkaline Phosphatase 44 L D Total Protein 5.8 L Albumin 3.4 07/12/19 18:00 WBC RBC Hgb Hct MCV MCH MCHC RDW Plt Count MPV Absolute Neuts (auto) Neutrophils % Lymphocytes % Monocytes % Eosinophils % Basophils % Sodium Potassium Chloride Carbon Dioxide Anion Gap BUN Creatinine Est GFR (CKD-EPI)AfAm Est GFR (CKD-EPI)NonAf Random Glucose Lactic Acid 1.8 Calcium Magnesium Total Bilirubin AST ALT Alkaline Phosphatase Total Protein Albumin Active Medications Generic Name Dose Route Start Last Admin Trade Name Freq PRN Reason Stop Dose Admin Acetaminophen 650 mg 07/11/19 23:28 07/12/19 00:54 Tylenol - PO 650 mg Q6H PRN Administration FEVER Albuterol/Ipratropium 1 amp 07/12/19 08:00 07/12/19 20:30 Duoneb - NEB 1 amp RQID HAIR Administration Amlodipine Besylate 2.5 mg 07/12/19 10:00 07/12/19 09:14 Norvasc - PO 2.5 mg DAILY HAIR Administration Aspirin 81 mg 07/12/19 10:00 07/12/19 09:13 Asa - PO 81 mg DAILY HAIR Administration Atorvastatin Calcium 10 mg 07/11/19 23:15 07/11/19 23:44 Lipitor - PO 10 mg Q48H HAIR Administration Budesonide/Formoterol Fumarate 2 puff 07/12/19 10:00 07/12/19 21:24 Symbicort 160/4.5mcg - IH 2 puff BID HAIR Administration Enoxaparin Sodium 40 mg 07/12/19 18:00 07/12/19 18:16 Lovenox - SQ 40 mg DAILY HAIR Administration Folic Acid 1 mg 07/12/19 10:00 07/12/19 09:13 Folic Acid - PO 1 mg DAILY HAIR Administration Azithromycin 250 mg/ Dextrose 250 mls @ 250 mls/hr 07/12/19 10:00 07/12/19 10 :22 IVPB 07/15/19 10:59 250 mls/hr DAILY HAIR Administration Ceftriaxone Sodium 1 gm/ 50 mls @ 100 mls/hr 07/12/19 10:00 07/12/19 09:14 Dextrose IVPB 100 mls/hr DAILY HAIR Administration Protocol Sodium Chloride 1,000 mls @ 83 mls/hr 07/11/19 23:30 07/12/19 00:01 Normal Saline - IV 83 mls/hr ASDIR HAIR Administration Non-Formulary Medication 5 ml 07/12/19 10:00 Prednisolone Acetate/Pf [Prednisolone Acet 1% Eye Drop] OS BID HAIR Non-Formulary Medication 1 applic 07/12/19 22:00 Sodium Chloride [Daria-128] OS HS HAIR Non-Formulary Medication 15 ml 07/12/19 10:00 Sodium Chloride [Daria-128] OS BID HAIR Pantoprazole Sodium 40 mg 07/12/19 10:00 07/12/19 09:14 Protonix - PO 40 mg DAILY HAIR Administration Tamsulosin HCl 0.4 mg 07/12/19 08:30 07/12/19 08:47 Flomax - PO 0.4 mg DAILY@0830 HAIR Administration Tiotropium [place] 2 puff 07/12/19 10:00 07/12/19 10:50 Spiriva Respimat IH 2 puff DAILY HAIR Administration ASSESSMENT/PLAN: 84 year-old male with a PMH significant for HTN, HLD, CAD, COPD, chronic sinusitis, and BPH admitted for severe sepsis secondary to CAP. 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 Full code. Visit type - Emergency Visit Emergency Visit: Yes ED Registration Date: 07/11/19 Care time: The patient presented to the Emergency Department on the above date and was hospitalized for further evaluation of their emergent condition. - New Patient This patient is new to me today: No - Critical Care Critical Care patient: No Vani Austin NP: This documentation has been prepared by the Lawrence olivera Maria, SCRIBE, under my direction and personally reviewed by me in its entirety. I confirm that the documentation accurately reflects all work, treatment, procedures, and medical decision making performed by me.
[2019-07-13] MEDS: POTASSIUM CHLORIDE TABS 20 MEQ TABLET.ER (FP) PO SCH ×2 (15:59→21:50)
--- NOTE | 2019-07-13 17:53 | CON.PULM ---
Consult Consult Specialty:: PULMONARY Referred by:: JAVAD Reason for Consultation:: PNEUMONIA - History of Present Illness Chief Complaint: FEVER CHILLS COUGH History of Present Illness: Sudden onset of fever today with shaking chills. Worsening of chronic cough and intermittent shortness of breath with coughing. No chest pain, abdominal pain, vomiting or diarrhea, dysuria frequency urgency hesitancy or hematuria, new skin rashes. Remainder of systems reviewed and negative. H/O Chronic cough,BPH, COPD, HBP, elevated cholesterol, coronary artery disease. Primary physician Dr. Gibbons and Dr. Pink, cardiology. - History Source History Provided By: Patient, Family Member, Medical Record Limitations to Obtaining History: No Limitations - Past Medical History DRUG PURCHASER: No: Alzheimer's Cardio/Vascular: Yes: HTN, Hyperlipdemia. No: AFIB Pulmonary: Yes: Bronchitis ENT: Yes: Sinusitis (chronic sinustits) - Alcohol/Substance Use Hx Alcohol Use: Yes (WINE OCC) - Smoking History Smoking history: Former smoker Have you smoked in the past 12 months: No Aproximately how many cigarettes per day: 0 If you are a former smoker, when did you quit?: 1963 - Social History Usual Living Arrangement: With Spouse ADL: Independent Occupation: former [employer] employee History of Recent Travel: Yes ([place] in april) Home Medications - Allergies Allergies/Adverse Reactions: Allergies Allergy/AdvReac Type Severity Reaction Status Date / Time clindamycin Allergy Verified 05/23/19 10:18 - Home Medications Home Medications: Ambulatory Orders Aspirin [ASA -] 81 mg PO DAILY 06/25/14 Atorvastatin Ca [Lipitor] 10 mg PO Q48H 06/25/14 Folic Acid - 1 tab PO DAILY 06/25/14 Albuterol Sulfate [Proair Hfa -] 1 - 2 inh PO QID #1 inhaler 06/27/14 Amlodipine Besylate [Norvasc -] 2.5 mg PO DAILY #30 tablet 06/27/14 Budesonide/Formeterol Fumarate [SYMBICORT 160/4.5mcg -] 2 inh IH BID #1 inhaler 06/27/14 Tiotropium [place] [Spiriva] 1 inh PO DAILY #1 inhaler 06/27/14 Famotidine [Pepcid] 40 mg PO ASDIR 10/21/17 Multivitamin [Multiple Vitamins] 1 each PO DAILY 10/21/17 [place]-3 Acid Ethyl Esters 1 gm PO DAILY 10/21/17 Tamsulosin HCl 0.4 mg PO DAILY 10/21/17 Vitamin B Complex 1 each PO DAILY 10/21/17 Esomeprazole Magnesium [Nexium 24Hr] 40 mg PO ASDIR 05/09/19 Prednisolone Acetate/Pf [Prednisolone Acet 1% Eye Drop] 5 ml OS BID 07/11/19 Prednisone 5 mg PO ASDIR 07/11/19 Sodium Chloride [Daria-128] 1 applic OS HS 07/11/19 Sodium Chloride [Daria-128] 15 ml OS BID 07/11/19 Family Medical History Family History: Unremarkable Review of Systems - Review of Systems Constitutional: reports: Fever Eyes: denies: Blurred Vision HENT: denies: Difficult Swallowing Neck: denies: Decreased ROM Cardiovascular: reports: Shortness of Breath. denies: Chest Pain Respiratory: reports: Cough, Exercise Intolerance, SOB, SOB on Exertion, Wheezing. denies: Hemoptysis Gastrointestinal: reports: No Symptoms Genitourinary: reports: No Symptoms Breasts: reports: No Symptoms Reported Musculoskeletal: reports: No Symptoms Physical Exam Vital Sings: Vital Signs Temperature 98.6 F 07/13/19 14:00 Pulse Rate 82 07/13/19 14:00 Respiratory Rate 19 07/13/19 14:00 Blood Pressure 110/60 07/13/19 14:00 O2 Sat by Pulse Oximetry (%) 94 L 07/13/19 14:00 Constitutional: Yes: Calm Eyes: Yes: EOM Intact HENT: Yes: Normocephalic Neck: Yes: Trachea Midline Cardiovascular: Yes: Regular Rate and Rhythm, S1, S2 Respiratory: Yes: Rales, Rhonchi (RIGHT BASE) Gastrointestinal: Yes: Normal Bowel Sounds Extremities: Yes: WNL Labs: CBC, BMP 07/13/19 10:55 07/13/19 10:55 Imaging - Results Chest X-ray: Report Reviewed, Image Reviewed Cat Scan: Report Reviewed, Image Reviewed Problem List - Problems (1) Pneumonia Code(s): J18.9 - PNEUMONIA, UNSPECIFIED ORGANISM Qualifiers: Pneumonia type: due to unspecified organism Laterality: bilateral Lung location: lower lobe of lung Qualified Code(s): J18.9 - Pneumonia, unspecified organism (2) Asthma Code(s): J45.909 - UNSPECIFIED ASTHMA, UNCOMPLICATED (3) CAD (coronary artery disease) Code(s): I25.10 - ATHSCL HEART DISEASE OF [place] CORONARY ARTERY W/O ANG PCTRS (4) COPD (chronic obstructive pulmonary disease) Code(s): J44.9 - CHRONIC OBSTRUCTIVE PULMONARY DISEASE, UNSPECIFIED Assessment/Plan ACUTE RLL PNEUMONIA IV ABS/O2 PRN/BRONCHODILATORS/DVT PROPHYLAXSIS CONTINUE HOME MEDS/WOULD HAVE GIVEN SHORT COURSE STEROIDS SHOULD BE OK FOR D/C IN AM ON ORAL ABS Jorge Luis MAURER MD
[2019-07-13] MEDS: ATORVASTATIN CA 10 MG TABLET (FP) PO SCH (22:50)
[2019-07-14] MEDS: ALBUTEROL SO4 2.5/IPRATROPIUM 0.5 INH SOL 3 ML VIAL.NEB. NEB SCH ×2 (08:16→12:19)
[2019-07-14] MEDS: TAMSULOSIN HCL 0.4 MG CAP PO SCH (08:16)
[2019-07-14] MEDS: PANTOPRAZOLE 40 MG TABLET (FP) PO SCH (09:45)
[2019-07-14] MEDS: ASPIRIN 81 MG CHEWABLE TABLETS PO SCH (09:45)
[2019-07-14] MEDS: amLODIPine BESYLATE 2.5 MG TABLET (FP) PO SCH (09:45)
[2019-07-14] MEDS: FOLIC ACID 1 MG TABLET (FP) PO SCH (09:45)
[2019-07-14] MEDS: ENOXAPARIN NA (PORCINE) 40 MG/0.4 ML DISP.SYRIN SQ SCH ×2 (09:45→10:13)
[2019-07-14] MEDS: AZITHROMYCIN IVPB 250 MG in DEXTROSE 5%-WATER - 250 ML IVPB SCH ×2 (09:45→10:15)
[2019-07-14] MEDS: CEFTRIAXONE 1 GM in DEXTROSE 5%-WATER - 50 ML IVPB SCH ×2 (09:46→10:15)
[2019-07-14] MEDS: BUDESONIDE/FORMETEROL FUMARATE 160/4.5 mcg INHALER IH SCH (09:46)
[2019-07-14] MEDS: TIOTROPIUM BROMIDE 2.5 MCG (SPIRIVA) RESPIMAT INHALER IH SCH (09:46)
[2019-07-14 10:04] VITALS: BP 123/72; PULSE 89; TEMP 98.5
[2019-07-14] MEDS: guaiFENesin/D-METHORPHAN HB 10 ML UNIT-DOSE CUPS PO PRN (10:58)
[2019-07-14] MEDS: ACETAMINOPHEN 325 MG TABLET (FP) PO PRN (10:59)
[2019-07-14] MEDS ORDERED: AZITHROMYCIN 250 MG TABLET PO ONE (11:00)
[2019-07-14] MEDS ORDERED: AMOX TR/POT CLAV 875MG/125MG TABLETS (FP) PO ONE (12:30)
== END 2019-07-14 12:30 | disposition home or self-care (01) | DRG 871 ==
LOC: FER 17:50 → FM/S 20:56
PROVIDERS: ADMIT Internal Medicine; ATTEND Nurse Practitioner Acute Care
DX: A41.9 Sepsis, unspecified organism (principal); J18.9 Pneumonia, unspecified organism; I10 Essential (primary) hypertension; J44.9 Chronic obstructive pulmonary disease, unspecified; I25.10 Atherosclerotic heart disease of native coronary artery without angina pectoris; N40.0 Benign prostatic hyperplasia without lower urinary tract symptoms; E78.5 Hyperlipidemia, unspecified
CPT/HCPCS: 36415; 71046-TC-FY; 71250-TC; 80053; 81003; 82550; 82553; 83605; 83735; 84484; 85025; 87040; 87070; 87081; 87086; 87186; 87205; 87633; 87804; 87899; 93005; 94640; 97116-GP; 97161-GP; 99285-25; J0131; J7030

== ENCOUNTER 2020-03-01 04:26 | Day surgery (SDC) | payer OTHER ==
[2020-02-28 17:24] VITALS: BMI 26.4
[2020-03-01] MEDS ORDERED: BUPIVACAINE HCL/PF 0.25% (2.5MG/ML) 10 ML VIAL ONE (07:27)
[2020-03-01] MEDS ORDERED: LIDOCAINE HCL 1%, 10 MG/ML (20ML VIAL) ONE (07:27)
[2020-03-01] MEDS ORDERED: DEXAMETHASONE SOD PHOSPHATE 4 MG/1 ML VIAL ONE (07:27)
--- NOTE | 2020-03-01 11:10 | HP ---
Admitting History and Physical - Admission Chief Complaint: Right low back and hip pain History of Present Illness: Complains of Right low back and buttock pain. History Source: Patient - Past Medical History Cardiovascular: Yes: HTN, Hyperlipdemia. 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 [employer] employee History of Recent Travel: Yes ([place] in april) Home Medications - Allergies Allergies/Adverse Reactions: Allergies Allergy/AdvReac Type Severity Reaction Status Date / Time clindamycin Allergy Verified 02/28/20 17:11 - Home Medications Home Medications: Ambulatory Orders Aspirin [ASA -] 81 mg PO DAILY 06/25/14 Atorvastatin Ca [Lipitor] 10 mg PO Q48H 06/25/14 Folic Acid - 1 tab PO DAILY 06/25/14 Albuterol Sulfate [Proair Hfa -] 1 - 2 inh PO QID #1 inhaler 06/27/14 Amlodipine Besylate [Norvasc -] 2.5 mg PO DAILY #30 tablet 06/27/14 Budesonide/Formeterol Fumarate [SYMBICORT 160/4.5mcg -] 2 inh IH BID #1 inhaler 06/27/14 Tiotropium [place] [Spiriva] 1 inh PO DAILY #1 inhaler 06/27/14 Famotidine [Pepcid] 40 mg PO ASDIR 10/21/17 Multivitamin [Multiple Vitamins] 1 each PO DAILY 10/21/17 [place]-3 Acid Ethyl Esters 1 gm PO DAILY 10/21/17 Tamsulosin HCl 0.4 mg PO DAILY 10/21/17 Esomeprazole Magnesium [Nexium 24Hr] 40 mg PO ASDIR 05/09/19 Albuterol 2.5/Ipratropium 0.5 [Duoneb -] 1 amp NEB PRN PRN 02/28/20 Paroxetine HCl 10 mg PO DAILY 02/28/20 Review of Systems - Review of Systems Constitutional: reports: No Symptoms Eyes: reports: No Symptoms HENT: reports: No Symptoms Neck: reports: No Symptoms Cardiovascular: reports: No Symptoms Respiratory: reports: No Symptoms Gastrointestinal: reports: No Symptoms Genitourinary: reports: No Symptoms Breasts: reports: No Symptoms Reported Musculoskeletal: reports: Back Pain Integumentary: reports: No Symptoms Neurological: reports: No Symptoms Endocrine: reports: No Symptoms Hematology/Lymphatic: reports: No Symptoms Psychiatric: reports: No Symptoms Physical Examination Vital Signs: Vital Signs Temperature 97.8 F 03/01/20 10:23 Pulse Rate 88 03/01/20 10:23 Respiratory Rate 20 03/01/20 10:23 Blood Pressure 163/94 03/01/20 10:23 O2 Sat by Pulse Oximetry (%) 96 03/01/20 10:24 Constitutional: Yes: Well Nourished, No Distress, Calm Eyes: Yes: Conjunctiva Clear, EOM Intact HENT: Yes: Atraumatic, Normocephalic Neck: Yes: Trachea Midline Cardiovascular: Yes: Regular Rate and Rhythm Respiratory: Yes: Regular Musculoskeletal: Yes: Back Pain Neurological: Yes: WNL ...Motor Strength: WNL Imaging - Results X-ray: Image Reviewed Assessment/Plan 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 I will perform right SIJ injection under fluoroscopic guidance.
[2020-03-01] MEDS ORDERED: TRIAMCINOLONE ACET 40MG/1ML VIAL ONE (11:38)
[2020-03-01] MEDS ORDERED: BUPIVACAINE HCL/PF 0.5% (5 MG/ML) 30 ML VIAL IJ ONE (11:47)
[2020-03-01] MEDS ORDERED: LIDOCAINE 1% P/F 10 MG/ML VIAL INF ONE (11:47)
[2020-03-01] MEDS ORDERED: TRIAMCINOLONE ACETONIDE 40 MG/ML 10 ML VIAL IJ ONE (11:47)
[2020-03-01] MEDS ORDERED: IOHEXOL 180 MG/1 ML ML IJ ONE (11:47)
[2020-03-01 13:03] VITALS: BP 137/80; PULSE 70; TEMP 98.6
--- NOTE | 2020-03-05 09:25 | PROC ---
Procedure Note Procedure: Pre procedure Diagnosis: Sacroiliac Joint Dysfunction Post Procedure Diagnosis: same Anesthesia: local Procedure Performed: Right Left Sacroiliac Joint Injection Under Fluoroscopic Guidance After the risks and benefits were explained, informed consent was obtained. The patient was then taken to the procedure room and positioned prone on the procedure table. Time out was performed. The region overlying the right sacroiliac joint was identified using fluoroscopy. The skin was prepped and draped in the usual sterile fashion. The skin and soft tissues were anesthetized using 2% lidocaine. Using fluoroscopic guidance, a 22 gauge 3.5 inch spinal needle was then introduced to the inferior aspect of the posterior Right sacroiliac joint. Omnipaque 180 confirmed appropriate needle placement. 1 cc .5% bupivacaine and 1 cc Kenalog was then injected. The patient tolerated the procedure well and there were no complications. The patient was taken to the post procedure recovery area in good condition. Vital signs remained stable before, during, and after the procedure. The patient was given oral and written follow-up instructions. The patient was given a follow up appointment with me in the near future. Shankar Roman DO
== END 2020-03-01 13:00 | disposition home or self-care (01) ==
LOC: JASU-SURG 04:26
PROVIDERS: ATTEND Pain Medicine Pain Medicine
PROC: 3E0U33Z Introduction of Anti-inflammatory into Joints, Percutaneous Approach (ICD-10-PCS; 2020-03-01)
PROC: 3E0U3BZ Introduction of Anesthetic Agent into Joints, Percutaneous Approach (ICD-10-PCS; principal; 2020-03-01 11:30)
DX: M53.3 Sacrococcygeal disorders, not elsewhere classified (principal)

== ENCOUNTER 2020-04-12 04:54 | Day surgery (SDC) | payer OTHER ==
[2020-04-10 18:15] VITALS: BMI 25.7
--- OUTSIDE RECORDS SUMMARY | 2020-04-12 05:26 | XMS ---
:1935 Author Organization [facility] Care Team Providers Name Role Phone Shankar Roman Unavailable DemetriusShankar mas Unavailable Liban Gibbons Unavailable Fader, M Unavailable Fader, M Unavailable Fader, M Unavailable Fader, M Unavailable Fader, M Unavailable Fader, M Unavailable Fader, M Unavailable Fader, M Unavailable Fader, M Unavailable Fader, M Unavailable Fader, M Unavailable Fader, M Unavailable Fader, M Unavailable Re-disclosure Warning The records that you are about to access may contain information from federally- assisted alcohol or drug abuse programs. If such information is present, then the following federally mandated warning applies: This information has been disclosed to you from records protected by federal confidentiality rules (42 CFR part 2). The federal rules prohibit you from making any further disclosure of this information unless further disclosure is expressly permitted by the written consent of the person to whom it pertains or as otherwise permitted by 42 CFR part 2. A general authorization for the release of medical or other information is NOT sufficient for this purpose. The Federal rules restrict any use of the information to criminally investigate or prosecute any alcohol or drug abuse patient.The records that you are about to access may contain highly sensitive health information, the redisclosure of which is protected by Article 27-F of the [facility] Public Health law. If you continue you may haveaccess to information: Regarding HIV / AIDS; Provided by facilities licensed or operated by the [facility] Office of Mental Health; or Provided by the [facility] Office for People With Developmental Disabilities. If such information is present, then the following [facility] mandated warning applies: This information has been disclosed to you from confidential records which are protected by state law. State law prohibits you from making any further disclosure of this information without the specific written consent of the person to whom it pertains, or as otherwise permitted by law. Any unauthorized further disclosure in violation of state law may result in a fine or skilled nursing sentence or both. A general authorization for the release of medical or other information is NOT sufficient authorization for further disclosure. Encounters Encounter Providers Location Date Indications Data Source(s ) Attender: Shankar 04/02/2020 [facility] ([facility] 12:00:00 AM EDT [facility]) Office Attender: Shankar Roman 04/02/2020 12:00:00 AM EDT [facility] ([facility] Office Attender: Liban Gibbons 03/14/2020 12:00:00 AM E DT [facility] ([facility] Office Attender: iLban Gibbons 03/14/2020 12:00:00 AM E DT [facility] ([facility] Office Attender: Liban Gibbons 03/14/2020 12:00:00 AM E DT [facility] ([facility] Office Attender: Liban Gibbons 03/14/2020 12:00:00 AM E DT [facility] ([facility] Office Attender: Liban Gibbons 03/14/2020 12:00:00 AM E DT [facility] ([facility] [place], ) Office Attender: Liban Gibbons 03/14/2020 12:00:00 AM E DT [facility] ([facility], ) Office Attender: Liban Gibbons 03/14/2020 12:00:00 AM E DT [facility] ([facility], ) Office Attender: Liban Gibbons 03/14/2020 12:00:00 AM E DT [facility] ([facility], ) Office Attender: Shankar Roman 02/21/2020 12:00:00 AM EDT MED[facility] ([facility], ) Office Attender: Shankar Roman 02/20/2020 12:00:00 AM EDT [facility] ([facility], ) Office Immunizations Vaccine Date Status Description Data Source(s) New in 2011. IIV4 08/16/2017 12:00:00 completed ME [facility] ([facility], ) New in 2011. IIV4 08/16/2017 12:00:00 completed ME DGEN ([facility] Medical, ) New in 2011. IIV4 08/16/2017 12:00:00 completed ME DGEN ([facility], ) New in 2011. IIV4 08/16/2017 12:00:00 completed ME DGEN ([facility], ) New in 2011. IIV4 08/16/2017 12:00:00 completed ME DGEN ([facility], ) Medications Medication Brand Start Product Dose Route Administrative Pharmacy [facility] Indications Reaction Description Data Name Date Form Instructions Instructions Source(s) gabapentin GABAPE 04/02/ CAPSULE 90 complet PAT PENTIN [facility] (St 100 MG Oral NTIN:3 2019 ed Tim's Capsule 60636 12:00: Medical, GABAPENTIN: 00 AM ) [id number] EDT gabapentin GABAPE 04/02/ CAPSULE 90 complet PAT PENTIN [facility] (St 100 MG Oral NTIN:3 2019 ed Tim's Capsule 18383 12:00: Medical, GABAPENTIN: 00 AM PC) [id number] EDT Paroxetine PAROXE 03/14/ TABLET, 90 complet PARO XETINE [facility] (St 12.5 MG GERMANIA:1 2020 EXTENDED ed Tim's PAROXETINE: [id number] 12:00: RELEASE M edical, [id number] 00 AM PC) EDT Paroxetine PAROXE 03/14/ TABLET, 90 complet PARO XETINE [facility] (St 12.5 MG GERMANIA:2019 EXTENDED ed Michelles PAROXETINE: 290626 12:00: RELEASE M edical, [id number] 00 AM PC) EDT Paroxetine PAROXE 03/14/ TABLET, 30 complet PARO XETINE [facility] (St 12.5 MG GERMANIA:2019 EXTENDED ed Tim's PAROXETINE: [id number] 12:00: RELEASE M edical, [id number] 00 AM PC) EDT Famotidine FAMOTI 03/06/ TABLET 45 complet FAMOT IDINE [facility] (St 40 MG Oral DINE:2019 ed Tim's Tablet 31359 12:00: Medical, FAMOTIDINE: 00 AM PC) 194598 EDT Esomeprazol ESOMEP 03/06/ DELAYED 45 complet ESO MEPRAZOLE [facility] (St e 40 MG RAZOLE 2019 RELEASE ed Tim's Delayed :69779 12:00: CAPSULE Medic al, Release 0 00 AM PC) Oral EDT Capsule ESOMEPRAZOL E:241108 Famotidine FAMOTI 03/06/ TABLET 45 complet FAMOT IDINE [facility] (St 40 MG Oral DINE:2019 ed Tim's Tablet 78234 12:00: Medical, FAMOTIDINE: 00 AM PC) [id number] EDT Esomeprazol ESOMEP 03/06/ DELAYED 45 complet ESO MEPRAZOLE [facility] (St e 40 MG RAZOLE 2019 RELEASE ed Tim's Delayed :12397 12:00: CAPSULE Medic al, Release 0 00 AM PC) Oral EDT Capsule ESOMEPRAZOL E:064864 Esomeprazol ESOMEP 03/06/ DELAYED 45 complet ESO MEPRAZOLE [facility] (St e 40 MG RAZOLE 2019 RELEASE ed Tim's Delayed :77593 12:00: CAPSULE Medic al, Release 0 00 AM PC) Oral EDT Capsule ESOMEPRAZOL E:777377 Famotidine FAMOTI 03/06/ TABLET 45 complet FAMOT IDINE [facility] (St 40 MG Oral DINE:2019 ed Tim's Tablet 29529 12:00: Medical, FAMOTIDINE: 00 AM PC) [id number] EDT 120 ACTUAT SYMBIC 01/29/ AEROSOL 3 complet SYMB ICORT MED[facility] (St Budesonide ORT:12 2019 ed Tim's 0.16 06258 12:00: Medical, MG/ACTUAT / 00 AM PC) formoterol EDT fumarate 0.0045 MG/ACTUAT Metered Dose Inhaler [Symbicort] SYMBICORT:1 270503 Folic Acid FOLIC 01/29/ TABLET 90 complet FOLIC ACID [facility] (St 1 MG Oral ACID:3 2019 ed Tmi's Tablet 92254 12:00: Medical, FOLIC 00 AM PC) ACID:[id number] EDT tiotropium SPIRIV 01/29/ CAPSULE 90 complet SPIR OZIEL [facility] (St 0.018 A:5801 2019 ed Tim's MG/ACTUAT 61 12:00: Medical, Inhalant 00 AM PC) Powder EDT [Spiriva] SPIRIVA:580 261 tiotropium SPIRIV 01/29/ CAPSULE 90 complet SPIR OZIEL [facility] (St 0.018 A:5801 2019 ed Tim's MG/ACTUAT 61 12:00: Medical, Inhalant 00 AM PC) Powder EDT [Spiriva] SPIRIVA:580 261 Folic Acid FOLIC 01/29/ TABLET 90 complet FOLIC ACID [facility] (St 1 MG Oral ACID:3 2019 ed Tim's Tablet 29901 12:00: Medical, FOLIC 00 AM PC) ACID:[id number] EDT tiotropium SPIRIV 01/29/ CAPSULE 90 complet SPIR OZIEL [facility] (St 0.018 A:5801 2019 ed Tim's MG/ACTUAT 61 12:00: Medical, Inhalant 00 AM PC) Powder EDT [Spiriva] SPIRIVA:580 261 Folic Acid FOLIC 01/29/ TABLET 90 complet FOLIC ACID [facility] (St 1 MG Oral ACID:3 2019 ed Tim's Tablet 72786 12:00: Medical, FOLIC 00 AM PC) ACID:[id number] EDT tiotropium SPIRIV 01/29/ CAPSULE 90 complet SPIR OZIEL [facility] (St 0.018 A:5801 2019 ed Tim's MG/ACTUAT 61 12:00: Medical, Inhalant 00 AM PC) Powder EDT [Spiriva] SPIRIVA:580 261 Folic Acid FOLIC 01/29/ TABLET 90 complet FOLIC ACID [facility] (St 1 MG Oral ACID:3 2019 ed Tim's Tablet 40732 12:00: Medical, FOLIC 00 AM PC) ACID:[id number] EDT 120 ACTUAT SYMBIC 01/29/ AEROSOL 3 complet SYMB ICORT [facility] (St Budesonide ORT:2019 ed Tim's 0.16 15251 12:00: Medical, MG/ACTUAT / 00 AM PC) formoterol EDT fumarate 0.0045 MG/ACTUAT Metered Dose Inhaler [Symbicort] SYMBICORT:1 [id number] 120 ACTUAT SYMBIC 01/29/ AEROSOL 3 complet SYMB ICORT [facility] (St Budesonide ORT:2019 ed Tim's 0.16 06208 12:00: Medical, MG/ACTUAT / 00 AM PC) formoterol EDT fumarate 0.0045 MG/ACTUAT Metered Dose Inhaler [Symbicort] SYMBICORT:1 897728 Folic Acid FOLIC 01/29/ TABLET 90 complet FOLIC ACID [facility] (St 1 MG Oral ACID:3 2019 ed Tim's Tablet 93595 12:00: Medical, FOLIC 00 AM PC) ACID:[id number] EDT tiotropium SPIRIV 01/29/ CAPSULE 90 complet SPIR OZIEL [facility] (St 0.018 A:5802 2019 ed Tim's MG/ACTUAT 61 12:00: Medical, Inhalant 00 AM PC) Powder EDT [Spiriva] SPIRIVA:580 261 120 ACTUAT SYMBIC 01/29/ AEROSOL 3 complet SYMB ICORT [facility] (St Budesonide ORT:2019 ed Tim's 0.16 87760 12:00: Medical, MG/ACTUAT / 00 AM PC) formoterol EDT fumarate 0.0045 MG/ACTUAT Metered Dose Inhaler [Symbicort] SYMBICORT:1 355507 120 ACTUAT SYMBIC 01/29/ AEROSOL 3 complet SYMB ICORT MED[facility] (St Budesonide ORT:2019 ed Tim's 0.16 61386 12:00: Medical, MG/ACTUAT / 00 AM PC) formoterol EDT fumarate 0.0045 MG/ACTUAT Metered Dose Inhaler [Symbicort] SYMBICORT:1 061505 Aspirin 81 ASPIRI 12/18/ DELAYED 30 complet ASPI RIN [facility] (St MG Delayed N 2020 RELEASE ed ADULT LOW J [facility] Release ADULT 12:00: TABLET STRENGTH Med ical, Oral Tablet LOW 00 AM PC) ASPIRIN STRENG EDT ADULT LOW TH:308 STRENGTH:30 416 8416 Aspirin 81 ASPIRI 06// DELAYED 30 complet ASPI RIN [facility] (St MG Delayed N 2020 RELEASE ed ADULT LOW J ohn[facility] Release ADULT 12:00: TABLET STRENGTH Med ical, Oral Tablet LOW 00 AM PC) ASPIRIN STRENG EDT ADULT LOW TH:308 STRENGTH:30 416 8416 Aspirin 81 ASPIRI 06// DELAYED 30 complet ASPI RIN [facility] (St MG Delayed N 2020 RELEASE ed ADULT LOW J ohn's Release ADULT 12:00: TABLET STRENGTH Med ical, Oral Tablet LOW 00 AM PC) ASPIRIN STRENG EDT ADULT LOW TH:308 STRENGTH:30 416 8416 Aspirin 81 ASPIRI 06// DELAYED 30 complet ASPI RIN MED[facility] (St MG Delayed N 2020 RELEASE ed ADULT LOW J ohn's Release ADULT 12:00: TABLET STRENGTH Med ical, Oral Tablet LOW 00 AM PC) ASPIRIN STRENG EDT ADULT LOW TH:308 STRENGTH:30 416 8416 Aspirin 81 ASPIRI // DELAYED 30 complet ASPI RIN MED[facility] (St MG Delayed N 2020 RELEASE ed ADULT LOW J ohn[facility] Release ADULT 12:00: TABLET STRENGTH Med ical, Oral Tablet LOW 00 AM PC) ASPIRIN STRENG EDT ADULT LOW TH:308 STRENGTH:30 416 8416 Amlodipine AMLODI 05/11/ TABLET 90 complet AMLOD IPINE [facility] (St 2.5 MG Oral PINE:3 2019 ed Tim's Tablet 70142 12:00: Medical, AMLODIPINE: 00 AM PC) 517382 EDT Amlodipine AMLODI 05/11/ TABLET 90 complet AMLOD IPINE [facility] (St 2.5 MG Oral PINE:3 2019 ed Tim's Tablet 59720 12:00: Medical, AMLODIPINE: 00 AM PC) [id number] EDT Amlodipine AMLODI 05/11/ TABLET 90 complet AMLOD IPINE [facility] (St 2.5 MG Oral PINE:3 2019 ed Tim's Tablet 19662 12:00: Medical, AMLODIPINE: 00 AM PC) [id number] EDT Amlodipine AMLODI 05/11/ TABLET 90 complet AMLOD IPINE [facility] (St 2.5 MG Oral PINE:3 2019 ed Tim's Tablet 95525 12:00: Medical, AMLODIPINE: 00 AM PC) [id number] EDT Amlodipine AMLODI 11/19/ TABLET 90 complet AMLOD IPINE [facility] (St 2.5 MG Oral PINE:3 2019 ed Tim's Tablet 29183 12:00: Medical, AMLODIPINE: 00 AM PC) 569640 EDT Tamsulosin TAMSUL 05/05/ CAPSULE 90 complet TAMS ULOSIN [facility] (St hydrochlori OSIN:8 2019 ed Tim's de 0.4 MG 53709 12:00: Medical , Oral 00 AM PC) Capsule EDT TAMSULOSIN: 286026 Tamsulosin TAMSUL 05/05/ CAPSULE 90 complet TAMS ULOSIN MED[facility] (St hydrochlori OSIN:8 2019 ed Tim's de 0.4 MG 69989 12:00: Medical , Oral 00 AM PC) Capsule EDT TAMSULOSIN: 550370 Tamsulosin TAMSUL 05/05/ CAPSULE 90 complet TAMS ULOSIN MED[facility] (St hydrochlori OSIN:8 2019 ed Tim's de 0.4 MG 62585 12:00: Medical , Oral 00 AM PC) Capsule EDT TAMSULOSIN: 152756 Tamsulosin TAMSUL 05/05/ CAPSULE 90 complet TAMS ULOSIN MED[facility] (St hydrochlori OSIN:8 2019 ed Tim's de 0.4 MG 95259 12:00: Medical , Oral 00 AM PC) Capsule EDT TAMSULOSIN: 699764 Tamsulosin TAMSUL 05/05/ CAPSULE 90 complet TAMS ULOSIN MED[facility] (St hydrochlori OSIN:8 2019 ed Tim's de 0.4 MG 17198 12:00: Medical , Oral 00 AM PC) Capsule EDT TAMSULOSIN: 550153 Albuterol ALBUTE 03/04/ SOLUTION 1 complet ALBU TEROL [facility] (St 0.83 MG/ML ROL:63 2019 ed Tim's Inhalant 0208 12:00: Medical, Solution 00 AM PC) ALBUTEROL:6 EST 00874 Albuterol ALBUTE 03/04/ SOLUTION 1 complet ALBU TEROL MED[facility] (St 0.83 MG/ML ROL:63 2019 ed Tim's Inhalant 0208 12:00: Medical, Solution 00 AM PC) ALBUTEROL:6 EST 21393 Albuterol ALBUTE 03/04/ SOLUTION 1 complet ALBU TEROL MED[facility] (St 0.83 MG/ML ROL:63 2019 ed [facility]'s Inhalant 020 12:00: Medical, Solution 00 AM PC) ALBUTEROL:6 EST 99208 Albuterol ALBUTE 09/12/ SOLUTION 1 complet ALBU TEROL MEDGEN (St 0.83 MG/ML ROL:63 2019 ed [facility] Inhalant 020 12:00: Medical, Solution 00 AM PC) ALBUTEROL:6 EST 96456 Albuterol ALBUTE 09/12/ SOLUTION 1 complet ALBU TEROL MEDGEN (St 0.83 MG/ML ROL:63 2019 ed [facility] Inhalant 0208 12:00: Medical, Solution 00 AM PC) ALBUTEROL:6 EST 50737 Famotidine FAMOTI 09/10/ TABLET 45 complet FAMOT IDINE [facility] (St 40 MG Oral DINE:2 2019 ed Tim's Tablet 46382 12:00: Medical, FAMOTIDINE: 00 AM PC) 169836 EST Esomeprazol ESOMEP 09/10/ DELAYED 45 complet ESO MEPRAZOLE [facility] (St e 40 MG RAZOLE 2019 RELEASE ed Tims Delayed :32614 12:00: CAPSULE Medic al, Release 0 00 AM PC) Oral EST Capsule ESOMEPRAZOL E:035966 Famotidine FAMOTI 09/10/ TABLET 45 complet FAMOT IDINE [facility] (St 40 MG Oral DINE:2 2019 ed Tim's Tablet 84926 12:00: Medical, FAMOTIDINE: 00 AM PC) 697984 EST Esomeprazol ESOMEP 09/10/ DELAYED 45 complet ESO MEPRAZOLE MED[facility] (St e 40 MG RAZOLE 2019 RELEASE ed Tim's Delayed :07787 12:00: CAPSULE Medic al, Release 0 00 AM PC) Oral EST Capsule ESOMEPRAZOL E:627828 atorvastati ATORVA 08/29/ TABLET 45 complet ATOR VASTATIN MED[facility] (St n 10 MG STATIN 2019 ed Tim's Oral Tablet :94433 12:00: Medi sean, ATORVASTATI 2 00 AM PC) N:[id number] EST atorvastati ATORVA 08/29/ TABLET 45 complet ATOR VASTATIN MED[facility] (St n 10 MG STATIN 2019 ed Tim's Oral Tablet :68934 12:00: Medi sean, ATORVASTATI 2 00 AM PC) N:007084 EST atorvastati ATORVA 18/ TABLET 45 complet ATOR VASTATIN MEDGEN (St n 10 MG STATIN 2020 ed Tim's Oral Tablet :09144 12:00: Medi sean, ATORVASTATI 2 00 AM PC) N:820004 EST atorvastati ATORVA 18/ TABLET 45 complet ATOR VASTATIN MEDGEN (St n 10 MG STATIN 2020 ed Tim's Oral Tablet :99270 12:00: Medi sean, ATORVASTATI 2 00 AM PC) N:635993 EST atorvastati ATORVA 08/29/ TABLET 45 complet ATOR VASTATIN MEDGEN (St n 10 MG STATIN 2020 ed Tim's Oral Tablet :49369 12:00: Medi sean, ATORVASTATI 2 00 AM PC) N:338008 EST 200 ACTUAT PROAIR 08/02/ AEROSOL 1 complet PROA IR HFA MED[facility] (St Albuterol HFA:74 2019 ed Tim's 0.09 5752 12:00: Medical, MG/ACTUAT 00 AM PC) Metered EST Dose Inhaler [ProAir] PROAIR HFA:[id number] 200 ACTUAT PROAIR 08/02/ AEROSOL 1 complet PROA IR HFA MEDGEN (St Albuterol HFA:74 2019 ed Tim's 0.09 5752 12:00: Medical, MG/ACTUAT 00 AM PC) Metered EST Dose Inhaler [ProAir] PROAIR HFA:[id number] 200 ACTUAT PROAIR 08/02/ AEROSOL 1 complet PROA IR HFA MEDGEN (St Albuterol HFA:74 2019 ed Tim's 0.09 5752 12:00: Medical, MG/ACTUAT 00 AM PC) Metered EST Dose Inhaler [ProAir] PROAIR HFA:[id number] 200 ACTUAT PROAIR 08/02/ AEROSOL 1 complet PROA IR HFA MED[facility] (St Albuterol HFA:74 2019 ed Tim's 0.09 5752 12:00: Medical, MG/ACTUAT 00 AM PC) Metered EST Dose Inhaler [ProAir] PROAIR HFA:001878 200 ACTUAT PROAIR 08/02/ AEROSOL 1 complet PROA IR HFA MEDGEN (St Albuterol HFA:74 2019 ed Tim's 0.09 5752 12:00: Medical, MG/ACTUAT 00 AM PC) Metered EST Dose Inhaler [ProAir] PROAIR HFA:186761 Albuterol ALBUTE 05/29/ SOLUTION 25 complet ALBU TEROL MEDGEN (St 0.83 MG/ML ROL:63 2017 ed Tim Inhalant 207 12:00: Medical, Solution 00 AM PC) ALBUTEROL:6 EDT 70799 Albuterol ALBUTE 05/29/ SOLUTION 25 complet ALBU TEROL MEDGEN (St 0.83 MG/ML ROL:63 2017 ed Tims Inhalant 207 12:00: Medical, Solution 00 AM PC) ALBUTEROL:6 EDT 96966 Albuterol ALBUTE 29/ SOLUTION 25 complet ALBU TEROL MEDGEN (St 0.83 MG/ML ROL:63 2017 ed Tim Inhalant 207 12:00: Medical, Solution 00 AM PC) ALBUTEROL:6 EDT 86524 Albuterol ALBUTE 29/ SOLUTION 25 complet ALBU TEROL MEDGEN (St 0.83 MG/ML ROL:63 2017 ed Tim Inhalant 207 12:00: Medical, Solution 00 AM PC) ALBUTEROL:6 EDT 63292 Albuterol ALBUTE 29/ SOLUTION 25 complet ALBU TEROL MEDGEN (St 0.83 MG/ML ROL:63 2017 ed Tim Inhalant 207 12:00: Medical, Solution 00 AM PC) ALBUTEROL:6 EDT 95880 MULTIVITAMI 05/24/ TABLET 30 complet MULTIV ITAMIN MEDGEN (St N:449965 4895 ed Tim 12:00: Medical, 00 AM PC) EST Thioctic ALPHA 05/24/ CAPSULE 30 complet ALPHA L IPOIC MEDGEN ( Acid 600 MG LIPOIC 2016 ed [facility] Tim Oral ACID:1 12:00: Medical, Capsule 374486 00 AM PC) ALPHA EST LIPOIC ACID:[id number] 5 FISH 05/24/ CAPSULE 30 complet FISH OIL MED GEN (St OIL:046715 9769 ed Tims 12:00: Medical, 00 AM PC) EST MULTIVITAMI 05/24/ TABLET 30 complet MULTIV ITAMIN MEDGEN (St N:303622 9557 ed Tim 12:00: Medical, 00 AM PC) EST VITAMIN B 05/24/ complet VITAMIN B MEDGEN (St COMPLEX 2017 ed COMPLEX WITH Tim anna WITH 12:00: C Medical, C:554523 00 AM PC) EST VITAMIN B 11/13/ complet VITAMIN B MEDGEN (St COMPLEX 2017 ed COMPLEX WITH Tim anna WITH 12:00: C Medical, C:151708 00 AM PC) EST MULTIVITAMI /13/ TABLET 30 complet MULTIV ITAMIN MEDGEN (St N:550983 6353 ed [facility] 12:00: Medical, 00 AM PC) EST VITAMIN B /13/ complet VITAMIN B MEDGEN ( COMPLEX 2017 ed COMPLEX WITH Tim anna WITH 12:00: C Medical, C:809433 00 AM PC) EST VITAMIN B /13/ complet VITAMIN B MEDGEN ( COMPLEX 2017 ed COMPLEX WITH Tim anna WITH 12:00: C Medical, C:763203 00 AM PC) EST Thioctic ALPHA 11/13/ CAPSULE 30 complet ALPHA L IPOIC MEDGEN (St Acid 600 MG LIPOIC 2016 ed [facility] Oral ACID:1 12:00: Medical, Capsule 798647 00 AM PC) ALPHA EST LIPOIC ACID:[id number] 5 FISH /13/ CAPSULE 30 complet FISH OIL MED GEN (St OIL:516561 2746 ed [facility] 12:00: Medical, 00 AM PC) EST MULTIVITAMI /13/ TABLET 30 complet MULTIV ITAMIN MEDGEN (St N:478118 7984 ed [facility] 12:00: Medical, 00 AM PC) EST Thioctic ALPHA 11/13/ CAPSULE 30 complet ALPHA L IPOIC MEDGEN (St Acid 600 MG LIPOIC 2016 ed [facility] Oral ACID:1 12:00: Medical, Capsule 361593 00 AM PC) ALPHA EST LIPOIC ACID:[id number] 5 FISH 11/13/ CAPSULE 30 complet FISH OIL MED GEN (St OIL:625387 7496 ed [facility] 12:00: Medical, 00 AM PC) EST MULTIVITAMI 11/13/ TABLET 30 complet MULTIV ITAMIN MEDGEN (St N:572166 6692 ed [facility] 12:00: Medical, 00 AM PC) EST FISH 11/13/ CAPSULE 30 complet FISH OIL MED GEN (St OIL:634300 4600 ed [facility] 12:00: Medical, 00 AM PC) EST FISH 11/13/ CAPSULE 30 complet FISH OIL MED GEN (St OIL:319056 0684 ed [facility] 12:00: Medical, 00 AM PC) EST Thioctic ALPHA 05/24/ CAPSULE 30 complet ALPHA L IPOIC MEDGEN (St Acid 600 MG LIPOIC 2017 ed ACID Tim's Oral ACID:1 12:00: Medical, Capsule 531102 00 AM PC) ALPHA EST LIPOIC ACID:[id number] 5 VITAMIN B VITAMIN B MEDGEN (St COMPLEX 2017 ed COMPLEX WITH Tim 's WITH 12:00: C Medical, C:529714 00 AM PC) EST Thioctic ALPHA 05/24/ CAPSULE 30 complet ALPHA L IPOIC MEDGEN (St Acid 600 MG LIPOIC 2016 ed ACID Tim's Oral ACID:1 12:00: Medical, Capsule 441649 00 AM PC) ALPHA EST LIPOIC ACID:[id number] 5 Insurance Providers Payer name Policy type Policy ID Covered Covered green party's Policy P chiquis / Coverage green party ID relationship to Roth Inf ormation type roth CIGNA [id number] SP [id number] 01 HEALTHCARE HMO 1 MEDICARE [id number] SP [id number] 50 0 [place] [id number] PART B DOWNSTATE [employer]IGNA (PPO) [id number] [place] [id number] PART B F50 [employer] [employer]IGNA [id number] SP [id number] 01 HEALTHCARE PPO 1 MEDICARE [id number] SP [id number] CIGNA [id number] SP [id number] 01 HEALTHCARE HMO 1 Problems, Conditions, and Diagnoses Code Display Name Description Problem Effective Data Type Dates Source(s) M54.16 Radiculopathy, RADICULOPATHY, Problem 04/02/2020 MEDGEN (St lumbar region LUMBAR REGION 12:00:00 AM Tim's [facility] Medical, ) M54.16 Radiculopathy, RADICULOPATHY, Problem 04/02/2020 MEDGEN (St lumbar region LUMBAR REGION 12:00:00 AM [facility] Medical, ) M53.3 Sacrococcygeal SACROCOCCYGEAL Problem 02/20/2020 MED[facility] (St disorders, not DISORDERS, NOT 12:00:00 AM Michelle berry elsewhere classified ELSEWHERE CLASSIFIED [facility] Medical, ) M53.3 Sacrococcygeal SACROCOCCYGEAL Problem 02/20/2020 MED[facility] (St disorders, not DISORDERS, NOT 12:00:00 AM Tim' s elsewhere classified ELSEWHERE CLASSIFIED EDT Medical, PC) M53.3 Sacrococcygeal SACROCOCCYGEAL Problem 02/20/2020 MEDGEN (St disorders, not DISORDERS, NOT 12:00:00 AM Tim' s elsewhere classified ELSEWHERE CLASSIFIED EDT Medical, PC) M53.3 Sacrococcygeal SACROCOCCYGEAL Problem 02/20/2020 MED[facility] (St disorders, not DISORDERS, NOT 12:00:00 AM Tim' s elsewhere classified ELSEWHERE CLASSIFIED EDT Medical, PC) M53.3 Sacrococcygeal SACROCOCCYGEAL Problem 02/20/2020 MED[facility] (St disorders, not DISORDERS, NOT 12:00:00 AM Tim' s elsewhere classified ELSEWHERE CLASSIFIED EDT Medical, PC) I82.401 Acute embolism and ACUTE EMBOLISM AND Problem 0 MEDGEN (St thrombosis of THROMBOSIS OF 12:00:00 AM Tim's unspecified deep UNSPECIFIED DEEP EST Me dical, PC) veins of right lower VEINS OF RIGHT LOWER extremity EXTREMITY I82.401 Acute embolism and ACUTE EMBOLISM AND Problem 0 MEDGEN (St thrombosis of THROMBOSIS OF 12:00:00 AM Tim's unspecified deep UNSPECIFIED DEEP EST Me dical, PC) veins of right lower VEINS OF RIGHT LOWER extremity EXTREMITY I82.401 Acute embolism and ACUTE EMBOLISM AND Problem 0 MEDGEN (St thrombosis of THROMBOSIS OF 12:00:00 AM Tim's unspecified deep UNSPECIFIED DEEP EST Me dical, PC) veins of right lower VEINS OF RIGHT LOWER extremity EXTREMITY I82.401 Acute embolism and ACUTE EMBOLISM AND Problem 0 MEDGEN (St thrombosis of THROMBOSIS OF 12:00:00 AM Tim's unspecified deep UNSPECIFIED DEEP EST Me dical, PC) veins of right lower VEINS OF RIGHT LOWER extremity EXTREMITY I82.401 Acute embolism and ACUTE EMBOLISM AND Problem 0 MEDGEN (St thrombosis of THROMBOSIS OF 12:00:00 AM Tim's unspecified deep UNSPECIFIED DEEP EST Me dical, PC) veins of right lower VEINS OF RIGHT LOWER extremity EXTREMITY J18.1 Lobar pneumonia, LOBAR PNEUMONIA, Problem 07/26/2019 ME DGEN (St unspecified organism UNSPECIFIED ORGANISM 12:00 :00 AM Tim's EST Medical, ) Z09 Encounter for ENCOUNTER FOR Problem 07/26/2019 MED[facility] ( St follow-up FOLLOW-UP 12:00:00 AM Tim's examination after EXAMINATION AFTER EST Medical, ) completed treatment COMPLETED TREATMENT for conditions other FOR 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 J18.1 Lobar pneumonia, LOBAR PNEUMONIA, Problem 07/26/2019 ME DGEN (St unspecified organism UNSPECIFIED ORGANISM 12:00 :00 AM Tim's EST Medical, ) Z09 Encounter for ENCOUNTER FOR Problem 07/26/2019 MEDGEN ( St follow-up FOLLOW-UP 12:00:00 AM Tim's examination after EXAMINATION AFTER EST Medical, ) completed treatment COMPLETED TREATMENT for conditions other FOR 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 J18.1 Lobar pneumonia, LOBAR PNEUMONIA, Problem 07/26/2019 ME DGEN (St unspecified organism UNSPECIFIED ORGANISM 12:00 :00 AM Tim's EST Medical, ) Z09 Encounter for ENCOUNTER FOR Problem 07/26/2019 MEDGEN ( St follow-up FOLLOW-UP 12:00:00 AM Tim's examination after EXAMINATION AFTER EST Medical, ) completed treatment COMPLETED TREATMENT for conditions other FOR 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 J18.1 Lobar pneumonia, LOBAR PNEUMONIA, Problem 07/26/2019 ME DGEN (St unspecified organism UNSPECIFIED ORGANISM 12:00 :00 AM Tim's EST Medical, ) Z09 Encounter for ENCOUNTER FOR Problem 07/26/2019 MEDGEN ( St follow-up FOLLOW-UP 12:00:00 AM Tim's examination after EXAMINATION AFTER EST Medical, ) completed treatment COMPLETED TREATMENT for conditions other FOR 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 J18.1 Lobar pneumonia, LOBAR PNEUMONIA, Problem 07/26/2019 ME DGEN (St unspecified organism UNSPECIFIED ORGANISM 12:00 :00 AM Tim's EST Medical, ) Z09 Encounter for ENCOUNTER FOR Problem 07/26/2019 MEDGEN ( St follow-up FOLLOW-UP 12:00:00 AM Tim's examination after EXAMINATION AFTER EST Medical, ) completed treatment COMPLETED TREATMENT for conditions other FOR 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 R53.82 Chronic fatigue, CHRONIC FATIGUE, Problem 05/03/2019 ME DGEN (St unspecified UNSPECIFIED 12:00:00 AM Tim's T Medical, ) 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 05/03/2019 MEDG EN (St heart disease of HEART DISEASE OF 12:00:00 AM [facility] [place] coronary [place] CORONARY EDT [facility], ) artery without ARTERY WITHOUT angina pectoris ANGINA PECTORIS H25.9 Unspecified UNSPECIFIED Problem 05/03/2019 MEDGEN (St age-related cataract AGE-RELATED CATARACT 12:00 :00 AM [facility]'s T [facility], ) Z01.818 Encounter for other ENCOUNTER FOR OTHER Problem 019 MEDGEN (St preprocedural PREPROCEDURAL 12:00:00 AM Tim's examination EXAMINATION T Medical, ) R53.82 Chronic fatigue, CHRONIC FATIGUE, Problem 05/03/2019 ME DGEN (St unspecified UNSPECIFIED 12:00:00 AM [facility], ) 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 05/03/2019 MEDG EN (St heart disease of HEART DISEASE OF 12:00:00 AM J [facility] [place] coronary [place] CORONARY EDT [facility], ) artery without ARTERY WITHOUT angina pectoris ANGINA PECTORIS H25.9 Unspecified UNSPECIFIED Problem 05/03/2019 MEDGEN (St age-related cataract AGE-RELATED CATARACT 12:00 :00 AM [facility]'s EDT [facility], ) Z01.818 Encounter for other ENCOUNTER FOR OTHER Problem 019 MEDGEN (St preprocedural PREPROCEDURAL 12:00:00 AM Tim's examination EXAMINATION [facility] Medical, ) R53.82 Chronic fatigue, CHRONIC FATIGUE, Problem 05/03/2019 ME DGEN (St unspecified UNSPECIFIED 12:00:00 AM [facility]'s T [facility], ) 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 05/03/2019 MEDG EN (St heart disease of HEART DISEASE OF 12:00:00 AM J [facility] [place] coronary [place] CORONARY EDT [facility], ) artery without ARTERY WITHOUT angina pectoris ANGINA PECTORIS H25.9 Unspecified UNSPECIFIED Problem 05/03/2019 MEDGEN (St age-related cataract AGE-RELATED CATARACT 12:00 :00 AM [facility]'s EDT [facility], ) Z01.818 Encounter for other ENCOUNTER FOR OTHER Problem 019 MEDGEN (St preprocedural PREPROCEDURAL 12:00:00 AM Tim's examination EXAMINATION EDT Medical, ) R53.82 Chronic fatigue, CHRONIC FATIGUE, Problem 05/03/2019 ME DGEN (St unspecified UNSPECIFIED 12:00:00 AM [facility]'s T [facility], ) 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 05/03/2019 MEDG EN (St heart disease of HEART DISEASE OF 12:00:00 AM J [facility] [place] coronary [place] CORONARY EDT [facility], ) artery without ARTERY WITHOUT angina pectoris ANGINA PECTORIS H25.9 Unspecified UNSPECIFIED Problem 05/03/2019 MEDGEN (St age-related cataract AGE-RELATED CATARACT 12:00 :00 AM [facility]'s T [facility], ) Z01.818 Encounter for other ENCOUNTER FOR OTHER Problem 019 MEDGEN (St preprocedural PREPROCEDURAL 12:00:00 AM [facility]'s examination EXAMINATION EDT Medical, ) R53.82 Chronic fatigue, CHRONIC FATIGUE, Problem 05/03/2019 ME DGEN (St unspecified UNSPECIFIED 12:00:00 AM [facility]'s T [facility], ) 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 05/03/2019 MEDG EN (St heart disease of HEART DISEASE OF 12:00:00 AM J [facility] [place] coronary [place] CORONARY EDT [facility], ) artery without ARTERY WITHOUT angina pectoris ANGINA PECTORIS H25.9 Unspecified UNSPECIFIED Problem 05/03/2019 MEDGEN (St age-related cataract AGE-RELATED CATARACT 12:00 :00 AM [facility]'s T [facility], ) Z01.818 Encounter for other ENCOUNTER FOR OTHER Problem 019 MEDGEN (St preprocedural PREPROCEDURAL 12:00:00 AM [facility]'s examination EXAMINATION EDT Medical, ) Z13.89 Encounter for ENCOUNTER FOR Problem 01/30/2019 MEDGEN ( St screening for other SCREENING FOR OTHER 12:00:0 0 AM Tim's disorder DISORDER EDT Medical, ) R05 Cough COUGH Problem 01/30/2019 MEDGEN (St 12:00:00 AM [facility]'s T [facility], ) Z13.89 Encounter for ENCOUNTER FOR Problem 01/30/2019 MEDGEN ( St screening for other SCREENING FOR OTHER 12:00:0 0 AM Tim's disorder DISORDER EDT Medical, ) R05 Cough COUGH Problem 01/30/2019 MEDGEN (St 12:00:00 AM Tim's [facility], ) Z13.89 Encounter for ENCOUNTER FOR Problem 01/30/2019 MEDGEN ( St screening for other SCREENING FOR OTHER 12:00:0 0 AM Tim's disorder DISORDER [facility], ) R05 Cough COUGH Problem 01/30/2019 MEDGEN (St 12:00:00 AM [facility], ) Z13.89 Encounter for ENCOUNTER FOR Problem 01/30/2019 MEDGEN ( St screening for other SCREENING FOR OTHER 12:00:0 0 AM Tim's disorder DISORDER [facility], ) R05 Cough COUGH Problem 01/30/2019 MEDGEN (St 12:00:00 AM Tim's [facility], ) Z13.89 Encounter for ENCOUNTER FOR Problem 01/30/2019 MEDGEN ( St screening for other SCREENING FOR OTHER 12:00:0 0 AM Tim's disorder DISORDER [facility], ) R05 Cough COUGH Problem 01/30/2019 MEDGEN (St 12:00:00 AM [facility], ) J15.9 Unspecified UNSPECIFIED Problem 07/14/2018 MEDGEN (St bacterial pneumonia BACTERIAL PNEUMONIA 12:00:0 0 AM Tim's EST [facility], ) J15.9 Unspecified UNSPECIFIED Problem 07/14/2018 MEDGEN (St bacterial pneumonia BACTERIAL PNEUMONIA 12:00:0 0 AM Tim's EST [facility], ) J15.9 Unspecified UNSPECIFIED Problem 07/14/2018 MEDGEN (St bacterial pneumonia BACTERIAL PNEUMONIA 12:00:0 0 AM Tim's [facility], ) J15.9 Unspecified UNSPECIFIED Problem 07/14/2018 MEDGEN (St bacterial pneumonia BACTERIAL PNEUMONIA 12:00:0 0 AM Tim's [facility], ) J15.9 Unspecified UNSPECIFIED Problem 07/14/2018 MEDGEN (St bacterial pneumonia BACTERIAL PNEUMONIA 12:00:0 0 AM Tim's EST [facility], ) 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 Problem 018 MEDGEN (St (valve) stenosis (VALVE) STENOSIS 12:00:00 AM [facility], ) 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 Problem 018 MEDGEN (St (valve) stenosis (VALVE) STENOSIS 12:00:00 AM [facility], ) 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 Problem 018 MEDGEN (St (valve) stenosis (VALVE) STENOSIS 12:00:00 AM [facility], ) 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 Problem 018 MEDGEN (St (valve) stenosis (VALVE) STENOSIS 12:00:00 AM [facility], ) 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 Problem 018 MEDGEN (St (valve) stenosis (VALVE) STENOSIS 12:00:00 AM [facility], ) J20.9 Acute bronchitis, ACUTE BRONCHITIS, Problem 12/07/2017 MEDGEN (St unspecified UNSPECIFIED 12:00:00 AM [facility], ) J20.9 Acute bronchitis, ACUTE BRONCHITIS, Problem 12/07/2017 MEDGEN (St unspecified UNSPECIFIED 12:00:00 AM [facility], ) J20.9 Acute bronchitis, ACUTE BRONCHITIS, Problem 12/07/2017 MEDGEN (St unspecified UNSPECIFIED 12:00:00 AM [facility], ) J20.9 Acute bronchitis, ACUTE BRONCHITIS, Problem 12/07/2017 MEDGEN (St unspecified UNSPECIFIED 12:00:00 AM [facility], ) J20.9 Acute bronchitis, ACUTE BRONCHITIS, Problem 12/07/2017 MEDGEN (St unspecified UNSPECIFIED 12:00:00 AM [facility], ) 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 Problem 11/24/2017 MEDGEN (St hypotension HYPOTENSION 12:00:00 AM [facility], ) 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 Problem 11/24/2017 MEDGEN (St hypotension HYPOTENSION 12:00:00 AM [facility], ) 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9 Gastro-esophageal GASTRO-ESOPHAGEAL Problem 08/16/2017 MEDGEN (St reflux disease REFLUX DISEASE 12:00:00 AM Tim' s without esophagitis WITHOUT ESOPHAGITIS EST Medical, ) N40.0 Benign prostatic ENLARGED PROSTATE Problem 08/16/2017 Mone CARSON (St hyperplasia without WITHOUT LOWER 12:00:00 AM J ohn's lower urinary tract URINARY TRACT EST Me dical, PC) symptoms SYMPTOMS K21.9 Gastro-esophageal GASTRO-ESOPHAGEAL Problem 08/16/2017 MEDGEN (St reflux disease REFLUX DISEASE 12:00:00 AM Tim' s without esophagitis WITHOUT ESOPHAGITIS EST Medical, PC) N40.0 Benign prostatic ENLARGED PROSTATE Problem 08/16/2017 Mone CARSON (St hyperplasia without WITHOUT LOWER 12:00:00 AM J ohn's lower urinary tract URINARY TRACT EST Me dical, PC) symptoms SYMPTOMS K21.9 Gastro-esophageal GASTRO-ESOPHAGEAL Problem 08/16/2017 MEDGEN (St reflux disease REFLUX DISEASE 12:00:00 AM Tim' s without esophagitis WITHOUT ESOPHAGITIS EST Medical, PC) N40.0 Benign prostatic ENLARGED PROSTATE Problem 08/16/2017 Mone CARSON (St hyperplasia without WITHOUT LOWER 12:00:00 AM J ohn's lower urinary tract URINARY TRACT EST Me dical, PC) symptoms SYMPTOMS K21.9 Gastro-esophageal GASTRO-ESOPHAGEAL Problem 08/16/2017 MEDGEN (St reflux disease REFLUX DISEASE 12:00:00 AM Tim' s without esophagitis WITHOUT ESOPHAGITIS EST Medical, PC) N40.0 Benign prostatic ENLARGED PROSTATE Problem 08/16/2017 Mone CARSON (St hyperplasia without WITHOUT LOWER 12:00:00 AM J ohn's lower urinary tract URINARY TRACT EST Me dical, PC) symptoms SYMPTOMS K21.9 Gastro-esophageal GASTRO-ESOPHAGEAL Problem 08/16/2017 MEDGEN (St reflux disease REFLUX DISEASE 12:00:00 AM Tim' s without esophagitis WITHOUT ESOPHAGITIS EST Medical, PC) E78.5 Hyperlipidemia, HYPERLIPIDEMIA, Problem 05/24/2017 MEDG EN (St unspecified UNSPECIFIED 12:00:00 AM Tim's EST Medical, PC) N40.1 Benign prostatic ENLARGED PROSTATE Problem 05/24/2017 Mone CARSON (St hyperplasia with WITH LOWER URINARY 12:00:00 AM Tim's lower urinary tract TRACT SYMPTOMS EST M edical, PC) symptoms J44.9 Chronic obstructive CHRONIC OBSTRUCTIVE Problem 017 MEDGEN (St pulmonary disease, PULMONARY DISEASE, 12:00:00 AM Tim's unspecified UNSPECIFIED EST Medical, PC) F41.9 Anxiety disorder, ANXIETY DISORDER, Problem 05/24/2017 MEDGEN (St unspecified UNSPECIFIED 12:00:00 AM Tim's EST Medical, PC) I10 Essential (primary) ESSENTIAL (PRIMARY) Problem 017 MEDGEN (St hypertension HYPERTENSION 12:00:00 AM Tim's EST Medical, PC) J06.9 Acute upper ACUTE UPPER Problem 05/24/2017 MEDGEN (St respiratory RESPIRATORY 12:00:00 AM Tim's infection, INFECTION, EST Medical, PC) unspecified UNSPECIFIED E78.5 Hyperlipidemia, HYPERLIPIDEMIA, Problem 05/24/2017 MEDG EN (St unspecified UNSPECIFIED 12:00:00 AM Tim's EST Medical, PC) N40.1 Benign prostatic ENLARGED PROSTATE Problem 05/24/2017 Mone CARSON (St hyperplasia with WITH LOWER URINARY 12:00:00 AM Tim's lower urinary tract TRACT SYMPTOMS EST edical, PC) symptoms J44.9 Chronic obstructive CHRONIC OBSTRUCTIVE Problem 017 MEDGEN (St pulmonary disease, PULMONARY DISEASE, 12:00:00 AM Tim's unspecified UNSPECIFIED EST Medical, PC) F41.9 Anxiety disorder, ANXIETY DISORDER, Problem 05/24/2017 MEDGEN (St unspecified UNSPECIFIED 12:00:00 AM Tim's EST Medical, PC) I10 Essential (primary) ESSENTIAL (PRIMARY) Problem 017 MEDGEN (St hypertension HYPERTENSION 12:00:00 AM Tim's EST Medical, PC) J06.9 Acute upper ACUTE UPPER Problem 05/24/2017 MEDGEN (St respiratory RESPIRATORY 12:00:00 AM Tim's infection, INFECTION, EST Medical, PC) unspecified UNSPECIFIED E78.5 Hyperlipidemia, HYPERLIPIDEMIA, Problem 05/24/2017 MEDG EN (St unspecified UNSPECIFIED 12:00:00 AM Tim's EST Medical, PC) N40.1 Benign prostatic ENLARGED PROSTATE Problem 05/24/2017 Mone CARSON (St hyperplasia with WITH LOWER URINARY 12:00:00 AM Tim's lower urinary tract TRACT SYMPTOMS EST M edical, PC) symptoms J44.9 Chronic obstructive CHRONIC OBSTRUCTIVE Problem 017 MEDGEN (St pulmonary disease, PULMONARY DISEASE, 12:00:00 AM Tim's unspecified UNSPECIFIED EST Medical, PC) F41.9 Anxiety disorder, ANXIETY DISORDER, Problem 05/24/2017 MEDGEN (St unspecified UNSPECIFIED 12:00:00 AM Tim's EST Medical, PC) I10 Essential (primary) ESSENTIAL (PRIMARY) Problem 017 MEDGEN (St hypertension HYPERTENSION 12:00:00 AM Tim's EST Medical, PC) J06.9 Acute upper ACUTE UPPER Problem 05/24/2017 MEDGEN (St respiratory RESPIRATORY 12:00:00 AM Tim's infection, INFECTION, EST Medical, PC) unspecified UNSPECIFIED E78.5 Hyperlipidemia, HYPERLIPIDEMIA, Problem 05/24/2017 MEDG EN (St unspecified UNSPECIFIED 12:00:00 AM Tim's EST Medical, PC) N40.1 Benign prostatic ENLARGED PROSTATE Problem 05/24/2017 Mone CARSON (St hyperplasia with WITH LOWER URINARY 12:00:00 AM Tim's lower urinary tract TRACT SYMPTOMS EST edical, PC) symptoms J44.9 Chronic obstructive CHRONIC OBSTRUCTIVE Problem 017 MEDGEN (St pulmonary disease, PULMONARY DISEASE, 12:00:00 AM Tim's unspecified UNSPECIFIED EST Medical, PC) F41.9 Anxiety disorder, ANXIETY DISORDER, Problem 05/24/2017 MEDGEN (St unspecified UNSPECIFIED 12:00:00 AM Tim's EST Medical, PC) I10 Essential (primary) ESSENTIAL (PRIMARY) Problem 017 MEDGEN (St hypertension HYPERTENSION 12:00:00 AM Tim's EST Medical, PC) J06.9 Acute upper ACUTE UPPER Problem 05/24/2017 MEDGEN (St respiratory RESPIRATORY 12:00:00 AM Tim's infection, INFECTION, EST Medical, PC) unspecified UNSPECIFIED E78.5 Hyperlipidemia, HYPERLIPIDEMIA, Problem 05/24/2017 MEDG EN (St unspecified UNSPECIFIED 12:00:00 AM Tim's EST Medical, PC) N40.1 Benign prostatic ENLARGED PROSTATE Problem 05/24/2017 Mone CARSON (St hyperplasia with WITH LOWER URINARY 12:00:00 AM Tim's lower urinary tract TRACT SYMPTOMS EST edical, ) symptoms J44.9 Chronic obstructive CHRONIC OBSTRUCTIVE Problem 017 MEDGEN (St pulmonary disease, PULMONARY DISEASE, 12:00:00 AM Tim's unspecified UNSPECIFIED EST Medical, ) F41.9 Anxiety disorder, ANXIETY DISORDER, Problem 05/24/2017 MEDGEN (St unspecified UNSPECIFIED 12:00:00 AM Tim's EST Medical, ) I10 Essential (primary) ESSENTIAL (PRIMARY) Problem 017 MEDGEN (St hypertension HYPERTENSION 12:00:00 AM Tim's [facility] Medical, ) J06.9 Acute upper ACUTE UPPER Problem 05/24/2017 MEDGEN (St respiratory RESPIRATORY 12:00:00 AM Tim's infection, INFECTION, [facility] Medical, ) unspecified UNSPECIFIED Surgeries/Procedures Procedure Description Date Indications Data Source(s) Documentation of current 04/02/2020 MED GEN ([facility]essie's medications (procedure) 12:00:00 AM EDT edical, ) Documentation of current 04/02/2020 MED GEN ([facility]ie[facility] medications (procedure) 12:00:00 AM EDT edical, ) OFFICE OUTPATIENT VISIT 15 04/02/2020 Mone CARSON ([facility]ie's MINUTES 12:00:00 AM EDT Medical, ) Documentation of current 04/02/2020 MED GEN ([facility]essie's medications (procedure) 12:00:00 AM EDT edical, ) Documentation of current 04/02/2020 MED GEN ([facility]essie's medications (procedure) 12:00:00 AM EDT edical, ) OFFICE OUTPATIENT VISIT 15 04/02/2020 Mone CARSON ([facility] MINUTES 12:00:00 AM EDT Medical, PC) Documentation of current 03/14/2020 MED GEN ([facility]essie's medications (procedure) 12:00:00 AM EDT edical, ) OFFICE OUTPATIENT VISIT 15 03/14/2020 Mone CARSON ([facility]ie[facility] MINUTES 12:00:00 AM EDT Medical, PC) Documentation of current 03/14/2020 MED GEN ([facility]essie's medications (procedure) 12:00:00 AM EDT divyaical, ) OFFICE OUTPATIENT VISIT 15 03/14/2020 M EDGEN ([facility]ie's MINUTES 12:00:00 AM EDT Medical, ) Documentation of current 03/14/2020 MED GEN ([facility]essie's medications (procedure) 12:00:00 AM EDT divyaical, PC) OFFICE OUTPATIENT VISIT 15 03/14/2020 M EDGEN ([facility]ie's MINUTES 12:00:00 AM EDT Medical, PC) OFFICE OUTPATIENT VISIT 15 02/21/2020 M EDGEN ([facility]essie's MINUTES 12:00:00 AM EDT Medical, PC) OFFICE OUTPATIENT VISIT 15 02/21/2020 M EDGEN ([facility]essie's MINUTES 12:00:00 AM EDT Medical, ) OFFICE OUTPATIENT VISIT 15 02/21/2020 M EDGEN ([facility]essie's MINUTES 12:00:00 AM EDT Medical, PC) OFFICE OUTPATIENT VISIT 15 02/21/2020 M EDGEN ([facility]essie's MINUTES 12:00:00 AM EDT Medical, ) Documentation of current 02/20/2020 MED GEN ([facility]essie's medications (procedure) 12:00:00 AM EDT divyaical, PC) Documentation of current 02/20/2020 MED GEN (Bessie's medications (procedure) 12:00:00 AM EDT dolores, PC) Documentation of current 02/20/2020 MED GEN ([facility]essie's medications (procedure) 12:00:00 AM EDT divyaical, PC) Documentation of current 02/20/2020 MED GEN (Bessie's medications (procedure) 12:00:00 AM EDT dolores, PC) Documentation of current 02/20/2020 MED GEN ([facility]essie's medications (procedure) 12:00:00 AM EDT divyaical, PC) Documentation of current 02/20/2020 MED GEN (Bessie's medications (procedure) 12:00:00 AM EDT divyaical, PC) Documentation of current 02/20/2020 MED GEN ([facility]essie's medications (procedure) 12:00:00 AM EDT divyaical, PC) Documentation of current 02/20/2020 MED GEN ([facility]essie's medications (procedure) 12:00:00 AM EDT divyaical, PC) Documentation of current 02/20/2020 MED GEN (Bessie's medications (procedure) 12:00:00 AM EDT dolores, PC) Documentation of current 02/20/2020 MED GEN ([facility]essie's medications (procedure) 12:00:00 AM EDT dolores, PC) Documentation of current 02/20/2020 MED GEN ([facility]essie's medications (procedure) 12:00:00 AM EDT dolores, PC) Documentation of current 02/20/2020 MED GEN ([facility]essie's medications (procedure) 12:00:00 AM EDT dolores, PC) Documentation of current 02/20/2020 MED GEN ([facility]essie's medications (procedure) 12:00:00 AM EDT dolores, PC) Documentation of current 02/20/2020 MED GEN ([facility]essie's medications (procedure) 12:00:00 AM EDT dolores, PC) Documentation of current 02/20/2020 MED GEN (Bessie's medications (procedure) 12:00:00 AM EDT dolores, PC) Documentation of current 02/20/2020 MED GEN ([facility]essie's medications (procedure) 12:00:00 AM EDT dolores, PC) Documentation of current 02/20/2020 MED GEN ([facility]essie's medications (procedure) 12:00:00 AM EDT dolores, PC) Documentation of current 02/20/2020 MED GEN ([facility]essie's medications (procedure) 12:00:00 AM EDT dolores, PC) Documentation of current 02/20/2020 MED GEN (Bessie's medications (procedure) 12:00:00 AM EDT dolores, PC) Documentation of current 02/20/2020 MED GEN (Bessie's medications (procedure) 12:00:00 AM EDT dolores, PC) Documentation of current 02/20/2020 MED GEN ([facility]essie's medications (procedure) 12:00:00 AM EDT dolores, PC) Documentation of current 02/20/2020 MED GEN (Bessie's medications (procedure) 12:00:00 AM EDT dolores, PC) Documentation of current 02/20/2020 MED GEN ([facility]essie's medications (procedure) 12:00:00 AM EDT dolores, PC) Documentation of current 02/20/2020 MED GEN (Bessie's medications (procedure) 12:00:00 AM EDT dolores, PC) Documentation of current 02/20/2020 MED GEN (Bessie's medications (procedure) 12:00:00 AM EDT dolores, PC) Documentation of current 02/20/2020 MED GEN (Bessie's medications (procedure) 12:00:00 AM EDT dolores, PC) Documentation of current 02/20/2020 MED GEN (Bessie's medications (procedure) 12:00:00 AM EDT dolores, PC) Documentation of current 02/20/2020 MED GEN (Bessie's medications (procedure) 12:00:00 AM EDT dolores, PC) Documentation of current 02/20/2020 MED GEN (Bessie's medications (procedure) 12:00:00 AM EDT dolores, PC) Documentation of current 02/20/2020 MED GEN (Bessie's medications (procedure) 12:00:00 AM EDT dolores, PC) Documentation of current 02/20/2020 MED GEN (Bessie's medications (procedure) 12:00:00 AM EDT dolores, PC) Documentation of current 02/20/2020 MED GEN (Bessie's medications (procedure) 12:00:00 AM EDT dolores, PC) Documentation of current 12/19/2019 MED GEN ([facility]essie's medications (procedure) 12:00:00 AM EDT dolores, PC) Documentation of current 12/19/2019 MED GEN ([facility]essie's medications (procedure) 12:00:00 AM EDT dolores, PC) Documentation of current 12/19/2019 MED GEN (Bessie's medications (procedure) 12:00:00 AM EDT dolores, PC) Documentation of current 12/19/2019 MED GEN ([facility]essie's medications (procedure) 12:00:00 AM EDT dolores, PC) Documentation of current 12/19/2019 MED GEN (Bessie's medications (procedure) 12:00:00 AM EDT dolores, PC) Documentation of current 12/19/2019 MED GEN ([facility]essie's medications (procedure) 12:00:00 AM EDT dolores, PC) Documentation of current 12/19/2019 MED GEN ([facility]ie's medications (procedure) 12:00:00 AM EDT Mone bernal, PC) Documentation of current 12/19/2019 MED GEN ([facility]ie's medications (procedure) 12:00:00 AM EDT Mone bernal, PC) Documentation of current 12/19/2019 MED GEN ([facility]essie's medications (procedure) 12:00:00 AM EDT dolorse, PC) Documentation of current 12/19/2019 MED GEN (Bessie's medications (procedure) 12:00:00 AM EDT Mone bernal, PC) Documentation of current 12/19/2019 MED GEN ([facility]essie's medications (procedure) 12:00:00 AM EDT dolores, PC) OFFICE OUTPATIENT VISIT 15 12/19/2019 Mone MUNOZN ([facility]essie's MINUTES 12:00:00 AM EDT Jojo, PC) Documentation of current 12/19/2019 MED GEN ([facility]essie's medications (procedure) 12:00:00 AM EDT Mone bernal, PC) Documentation of current 12/19/2019 MED GEN ([facility]essie's medications (procedure) 12:00:00 AM EDT dolores, PC) Documentation of current 12/19/2019 MED GEN (Bessie's medications (procedure) 12:00:00 AM EDT dolores, PC) Documentation of current 12/19/2019 MED GEN (Bessie's medications (procedure) 12:00:00 AM EDT dolores, PC) Documentation of current 12/19/2019 MED GEN (Bessie's medications (procedure) 12:00:00 AM EDT dolores, PC) Documentation of current 12/19/2019 MED GEN (Bessie's medications (procedure) 12:00:00 AM EDT Mone bernal, PC) Documentation of current 12/19/2019 MED GEN (Bessie's medications (procedure) 12:00:00 AM EDT dolores, PC) Documentation of current 12/19/2019 MED GEN (Bessie's medications (procedure) 12:00:00 AM EDT dolores, PC) Documentation of current 12/19/2019 MED GEN (Bessie's medications (procedure) 12:00:00 AM EDT dolores, PC) Documentation of current 12/19/2019 MED GEN ([facility]essie's medications (procedure) 12:00:00 AM EDT dolores, PC) Documentation of current 12/19/2019 MED GEN (Bessie's medications (procedure) 12:00:00 AM EDT dolores, PC) OFFICE OUTPATIENT VISIT 15 12/19/2019 Mone ALEXANDERN ([facility]essie's MINUTES 12:00:00 AM EDT Medical, PC) Documentation of current 12/19/2019 MED GEN ([facility]essie's medications (procedure) 12:00:00 AM EDT divyaical, PC) Documentation of current 12/19/2019 MED GEN (Bessie's medications (procedure) 12:00:00 AM EDT divyaical, PC) Documentation of current 12/19/2019 MED GEN ([facility]essie's medications (procedure) 12:00:00 AM EDT dolores, PC) Documentation of current 12/19/2019 MED GEN (Bessie's medications (procedure) 12:00:00 AM EDT dolores, PC) Documentation of current 12/19/2019 MED GEN (Bessie's medications (procedure) 12:00:00 AM EDT dolores, PC) Documentation of current 12/19/2019 MED GEN (Bessie's medications (procedure) 12:00:00 AM EDT dolores, PC) Documentation of current 12/19/2019 MED GEN ([facility]essie's medications (procedure) 12:00:00 AM EDT divyaical, PC) Documentation of current 12/19/2019 MED GEN (Bessie's medications (procedure) 12:00:00 AM EDT dolores, PC) Documentation of current 12/19/2019 MED GEN (Bessie's medications (procedure) 12:00:00 AM EDT dolores, PC) Documentation of current 12/19/2019 MED GEN (Bessie's medications (procedure) 12:00:00 AM EDT [facility], [facility]) Documentation of current 12/19/2019 MED GEN ([facility] medications (procedure) 12:00:00 AM EDT [facility], [facility]) OFFICE OUTPATIENT VISIT 15 12/19/2019 M[facility] ALEXANDERN ([facility]ES 12:00:00 AM EDT [facility], PC) Documentation of current 12/19/2019 MED GEN ([facility] medications (procedure) 12:00:00 AM EDT [facility], [facility]) Documentation of current 12/19/2019 MED GEN ([facility] medications (procedure) 12:00:00 AM EDT [facility], [facility]) Documentation of current 12/19/2019 MED GEN ([facility] medications (procedure) 12:00:00 AM EDT [facility], [facility]) Documentation of current 12/19/2019 MED GEN ([facility] medications (procedure) 12:00:00 AM EDT [facility]yaical, PC) Documentation of current 12/19/2019 MED GEN ([facility] medications (procedure) 12:00:00 AM EDT [facility], [facility]) Documentation of current 12/19/2019 MED GEN ([facility] medications (procedure) 12:00:00 AM EDT [facility], PC) Documentation of current 12/19/2019 MED GEN ([facility] medications (procedure) 12:00:00 AM EDT [facility]yaical, PC) Documentation of current 12/19/2019 MED GEN ([facility] medications (procedure) 12:00:00 AM EDT [facility], PC) Documentation of current 12/19/2019 MED GEN ([facility] medications (procedure) 12:00:00 AM EDT [facility], PC) Documentation of current 12/19/2019 MED GEN ([facility] medications (procedure) 12:00:00 AM EDT [facility], PC) Documentation of current 12/19/2019 MED GEN ([facility] medications (procedure) 12:00:00 AM EDT [facility], PC) OFFICE OUTPATIENT VISIT 15 12/19/2019 Mone MUNOZN ([facility] 12:00:00 AM EDT [facility]) Documentation of current 12/19/2019 MED GEN ([facility] medications (procedure) 12:00:00 AM EDT [facility], PC) Documentation of current 12/19/2019 MED GEN ([facility] medications (procedure) 12:00:00 AM EDT [facility], PC) Documentation of current 12/19/2019 MED GEN ([facility] medications (procedure) 12:00:00 AM EDT [facility], PC) Documentation of current 12/19/2019 MED GEN ([facility] medications (procedure) 12:00:00 AM EDT dolores, PC) Documentation of current 12/19/2019 MED GEN ([facility] medications (procedure) 12:00:00 AM EDT Mone bernal, PC) Documentation of current 12/19/2019 MED GEN ([facility] medications (procedure) 12:00:00 AM EDT Mone bernal, PC) Documentation of current 12/19/2019 MED GEN ([facility] medications (procedure) 12:00:00 AM EDT Mone bernal, PC) Documentation of current 12/19/2019 MED GEN ([facility] medications (procedure) 12:00:00 AM EDT Mone bernal, PC) Documentation of current 12/19/2019 MED GEN ([facility] medications (procedure) 12:00:00 AM EDT Mone bernal, PC) Documentation of current 12/19/2019 MED GEN ([facility] medications (procedure) 12:00:00 AM EDT Mone bernal, PC) Documentation of current 12/19/2019 MED GEN ([facility] medications (procedure) 12:00:00 AM EDT Mone bernal, PC) OFFICE OUTPATIENT VISIT 15 12/19/2019 Mone CARSON ([facility] 12:00:00 AM EDKya Uribe, PC) Documentation of current 09/13/2019 MED GEN ([facility] medications (procedure) 12:00:00 AM EST Mone bernal, PC) Documentation of current 09/13/2019 MED GEN ([facility] medications (procedure) 12:00:00 AM LAUREN bernal PC) Documentation of current 09/13/2019 MED GEN ([facility] medications (procedure) 12:00:00 AM EST Mone bernal, PC) Documentation of current 09/13/2019 MED GEN ([facility] medications (procedure) 12:00:00 AM LAUREN bernal PC) Documentation of current 09/13/2019 MED GEN ([facility] medications (procedure) 12:00:00 AM EST Mone bernal, PC) Documentation of current 09/13/2019 MED GEN ([facility] medications (procedure) 12:00:00 AM EST Mone bernal, PC) Documentation of current 09/13/2019 MED GEN ([facility] medications (procedure) 12:00:00 AM EST Mone bernal, PC) Documentation of current 09/13/2019 MED GEN ([facility] medications (procedure) 12:00:00 AM EST Mone bernal, PC) Documentation of current 09/13/2019 MED GEN ([facility] medications (procedure) 12:00:00 AM LAUREN bernal, PC) Documentation of current 09/13/2019 MED GEN ([facility] medications (procedure) 12:00:00 AM LAUREN bernal, ADAM) Documentation of current 09/13/2019 MED GEN ([facility] medications (procedure) 12:00:00 AM LAUREN bernal, PC) Documentation of current 09/13/2019 MED GEN ([facility] medications (procedure) 12:00:00 AM ADAM [place]) Documentation of current 09/13/2019 MED GEN ([facility] medications (procedure) 12:00:00 AM LAUREN bernal, PC) Documentation of current 09/13/2019 MED GEN ([facility] medications (procedure) 12:00:00 AM ADAM [place]) Documentation of current 09/13/2019 MED GEN ([facility] medications (procedure) 12:00:00 AM ADAM [place]) OFFICE OUTPATIENT VISIT 15 09/13/2019 M[facility] MUNOZN ([facility] 12:00:00 AM LAUREN Uribe PC) Documentation of current 09/13/2019 MED GEN ([facility] medications (procedure) 12:00:00 AM LAUREN bernal, ADAM) Documentation of current 09/13/2019 MED GEN ([facility] medications (procedure) 12:00:00 AM ADAM [place]) Documentation of current 09/13/2019 MED GEN ([facility] medications (procedure) 12:00:00 AM ADAM [place]) Documentation of current 09/13/2019 MED GEN ([facility] medications (procedure) 12:00:00 AM LAUREN bernal, PC) Documentation of current 09/13/2019 MED GEN ([facility] medications (procedure) 12:00:00 AM LAUREN bernal, PC) Documentation of current 09/13/2019 MED GEN ([facility] medications (procedure) 12:00:00 AM LAUREN bernal, PC) Documentation of current 09/13/2019 MED GEN ([facility] medications (procedure) 12:00:00 AM LAUREN bernal, PC) Documentation of current 09/13/2019 MED GEN ([facility] medications (procedure) 12:00:00 AM LAUREN bernal, ADAM) Documentation of current 09/13/2019 MED GEN ([facility] medications (procedure) 12:00:00 AM LAUREN bernal, PC) Documentation of current 09/13/2019 MED GEN ([facility] medications (procedure) 12:00:00 AM ALUREN bernal, ADAM) Documentation of current 09/13/2019 MED GEN ([facility] medications (procedure) 12:00:00 AM LAUREN bernal, PC) Documentation of current 09/13/2019 MED GEN ([facility] medications (procedure) 12:00:00 AM LAUREN bernal, PC) Documentation of current 09/13/2019 MED GEN ([facility] medications (procedure) 12:00:00 AM LAUREN bernal, PC) Documentation of current 09/13/2019 MED GEN ([facility] medications (procedure) 12:00:00 AM LAUREN bernal, PC) Documentation of current 09/13/2019 MED GEN ([facility] medications (procedure) 12:00:00 AM ADAM [place]) OFFICE OUTPATIENT VISIT 15 09/13/2019 Mone MUNOZN ([facility] 12:00:00 AM LAUREN Uribe, PC) Documentation of current 09/13/2019 MED GEN ([facility] medications (procedure) 12:00:00 AM LAUREN bernal, PC) Documentation of current 09/13/2019 MED GEN ([facility] medications (procedure) 12:00:00 AM LAUREN bernal, PC) Documentation of current 09/13/2019 MED GEN ([facility] medications (procedure) 12:00:00 AM ADAM [place]) Documentation of current 09/13/2019 MED GEN ([facility] medications (procedure) 12:00:00 AM LAUREN bernal, PC) Documentation of current 09/13/2019 MED GEN ([facility] medications (procedure) 12:00:00 AM LAUREN bernal, PC) Documentation of current 09/13/2019 MED GEN ([facility] medications (procedure) 12:00:00 AM EST Mone bernal, PC) Documentation of current 09/13/2019 MED GEN ([facility] medications (procedure) 12:00:00 AM EST Mone bernal, PC) Documentation of current 09/13/2019 MED GEN ([facility] medications (procedure) 12:00:00 AM LAUREN bernal, PC) Documentation of current 09/13/2019 MED GEN ([facility] medications (procedure) 12:00:00 AM LAUREN bernal, PC) Documentation of current 09/13/2019 MED GEN ([facility] medications (procedure) 12:00:00 AM LAUREN bernal, PC) Documentation of current 09/13/2019 MED GEN ([facility] medications (procedure) 12:00:00 AM LAUREN bernal, PC) Documentation of current 09/13/2019 MED GEN ([facility] medications (procedure) 12:00:00 AM LAUREN bernal, PC) Documentation of current 09/13/2019 MED GEN ([facility] medications (procedure) 12:00:00 AM LAUREN bernal, PC) Documentation of current 09/13/2019 MED GEN ([facility] medications (procedure) 12:00:00 AM LAUREN bernal, PC) Documentation of current 09/13/2019 MED GEN ([facility] medications (procedure) 12:00:00 AM LAUREN bernal, ADAM) OFFICE OUTPATIENT VISIT 15 09/13/2019 [facility]GEN ([facility] 12:00:00 AM LAUREN Uribe, PC) Documentation of current 09/13/2019 MED GEN ([facility] medications (procedure) 12:00:00 AM LAUREN bernal, PC) Documentation of current 09/13/2019 MED GEN ([facility] medications (procedure) 12:00:00 AM LAUREN bernal, PC) Documentation of current 09/13/2019 MED GEN ([facility] medications (procedure) 12:00:00 AM LAUREN bernal, PC) Documentation of current 09/13/2019 MED GEN ([facility] medications (procedure) 12:00:00 AM LAUREN bernal, PC) Documentation of current 09/13/2019 MED GEN ([facility] medications (procedure) 12:00:00 AM EST Mone bernal, PC) Documentation of current 09/13/2019 MED GEN ([facility] medications (procedure) 12:00:00 AM EST Mone bernal, PC) Documentation of current 09/13/2019 MED GEN ([facility] medications (procedure) 12:00:00 AM LAUREN bernal, PC) Documentation of current 09/13/2019 MED GEN ([facility] medications (procedure) 12:00:00 AM LAUREN bernal, ADAM) Documentation of current 09/13/2019 MED GEN ([facility] medications (procedure) 12:00:00 AM LAUREN bernal, PC) Documentation of current 09/13/2019 MED GEN ([facility] medications (procedure) 12:00:00 AM LAUREN bernal, PC) Documentation of current 09/13/2019 MED GEN ([facility] medications (procedure) 12:00:00 AM LAUREN bernal, PC) Documentation of current 09/13/2019 MED GEN ([facility] medications (procedure) 12:00:00 AM LAUREN bernal, PC) Documentation of current 09/13/2019 MED GEN ([facility] medications (procedure) 12:00:00 AM LAUREN bernal, ADAM) Documentation of current 09/13/2019 MED GEN ([facility] medications (procedure) 12:00:00 AM LAUREN bernal, PC) Documentation of current 09/13/2019 MED GEN ([facility] medications (procedure) 12:00:00 AM LAUREN bernal, ADAM) OFFICE OUTPATIENT VISIT 15 09/13/2019 [facility]GEN ([facility] 12:00:00 AM LAUREN Uribe PC) Documentation of current 09/13/2019 MED GEN ([facility] medications (procedure) 12:00:00 AM LAUREN bernal, ADAM) Documentation of current 09/13/2019 MED GEN ([facility] medications (procedure) 12:00:00 AM LAUREN bernal, PC) Documentation of current 09/13/2019 MED GEN ([facility] medications (procedure) 12:00:00 AM LAUREN bernal, PC) Documentation of current 09/13/2019 MED GEN ([facility] medications (procedure) 12:00:00 AM LAUREN bernal, PC) Documentation of current 09/13/2019 MED GEN ([facility] medications (procedure) 12:00:00 AM LAUREN bernal, PC) Documentation of current 09/13/2019 MED GEN ([facility] medications (procedure) 12:00:00 AM EST [facility]one bernal, PC) Documentation of current 09/13/2019 MED GEN ([facility] medications (procedure) 12:00:00 AM ADAM [place]) Documentation of current 09/13/2019 MED GEN ([facility] medications (procedure) 12:00:00 AM ADAM [place]) Documentation of current 09/13/2019 MED GEN ([facility] medications (procedure) 12:00:00 AM ADAM [place]) Documentation of current 09/13/2019 MED GEN ([facility] medications (procedure) 12:00:00 AM LAUREN bernal, PC) Documentation of current 09/13/2019 MED GEN ([facility] medications (procedure) 12:00:00 AM ADAM [place]) Documentation of current 09/13/2019 MED GEN ([facility] medications (procedure) 12:00:00 AM ADAM [place]) Documentation of current 09/13/2019 MED GEN ([facility] medications (procedure) 12:00:00 AM LAUREN bernal, ADAM) Documentation of current 09/13/2019 MED GEN ([facility] medications (procedure) 12:00:00 AM ADAM [place]) Documentation of current 09/13/2019 MED GEN ([facility] medications (procedure) 12:00:00 AM LAUREN bernal, ADAM) OFFICE OUTPATIENT VISIT 15 09/13/2019 [facility]GEN ([facility] 12:00:00 AM ADAM [place]) Documentation of current 09/11/2019 MED GEN ([facility] medications (procedure) 12:00:00 AM ADAM [place]) Documentation of current 09/11/2019 MED GEN ([facility] medications (procedure) 12:00:00 AM ADAM [place]) Documentation of current 09/11/2019 MED GEN ([facility] medications (procedure) 12:00:00 AM ADAM [place]) Documentation of current 09/11/2019 MED GEN ([facility] medications (procedure) 12:00:00 AM ADAM [place]) Documentation of current 09/11/2019 MED GEN ([facility] medications (procedure) 12:00:00 AM LAUREN bernal, ADAM) Documentation of current 09/11/2019 MED GEN ([facility] medications (procedure) 12:00:00 AM LAUREN bernal, PC) Documentation of current 09/11/2019 MED GEN ([facility] medications (procedure) 12:00:00 AM ADAM [place]) Documentation of current 09/11/2019 MED GEN ([facility] medications (procedure) 12:00:00 AM ADAM [place]) Documentation of current 09/11/2019 MED GEN ([facility] medications (procedure) 12:00:00 AM ADAM [place]) Documentation of current 09/11/2019 MED GEN ([facility] medications (procedure) 12:00:00 AM ADAM [place]) Documentation of current 09/11/2019 MED GEN ([facility] medications (procedure) 12:00:00 AM ADAM [place]) OFFICE OUTPATIENT VISIT 15 09/11/2019 [facility] ([facility] 12:00:00 AM ADAM [place]) Documentation of current 09/11/2019 MED GEN ([facility] medications (procedure) 12:00:00 AM ADAM [place]) Documentation of current 09/11/2019 MED GEN ([facility] medications (procedure) 12:00:00 AM ADAM [place]) Documentation of current 09/11/2019 MED GEN ([facility] medications (procedure) 12:00:00 AM ADAM [place]) Documentation of current 09/11/2019 MED GEN ([facility] medications (procedure) 12:00:00 AM ADAM [place]) Documentation of current 09/11/2019 MED GEN ([facility] medications (procedure) 12:00:00 AM ADAM [place]) Documentation of current 09/11/2019 MED GEN ([facility] medications (procedure) 12:00:00 AM ADAM [place]) Documentation of current 09/11/2019 MED GEN ([facility] medications (procedure) 12:00:00 AM ADAM [place]) Documentation of current 09/11/2019 MED GEN ([facility] medications (procedure) 12:00:00 AM ADAM [place]) Documentation of current 09/11/2019 MED GEN ([facility] medications (procedure) 12:00:00 AM ADAM [place]) Documentation of current 09/11/2019 MED GEN ([facility] medications (procedure) 12:00:00 AM ADAM [place]) Documentation of current 09/11/2019 MED GEN ([facility] medications (procedure) 12:00:00 AM EST [facility] bernal, PC) OFFICE OUTPATIENT VISIT 15 09/11/2019 M[facility] MUNOZN ([facility] 12:00:00 AM LAUREN Uribe, PC) Documentation of current 09/11/2019 MED GEN ([facility] medications (procedure) 12:00:00 AM EST Mone bernal, PC) Documentation of current 09/11/2019 MED GEN ([facility] medications (procedure) 12:00:00 AM LAUREN bernal, PC) Documentation of current 09/11/2019 MED GEN ([facility] medications (procedure) 12:00:00 AM EST Mone bernal, PC) Documentation of current 09/11/2019 MED GEN ([facility] medications (procedure) 12:00:00 AM LAUREN bernal, PC) Documentation of current 09/11/2019 MED GEN ([facility] medications (procedure) 12:00:00 AM EST Mone bernal, PC) Documentation of current 09/11/2019 MED GEN ([facility] medications (procedure) 12:00:00 AM LAUREN bernal, PC) Documentation of current 09/11/2019 MED GEN ([facility] medications (procedure) 12:00:00 AM EST Mone bernal, PC) Documentation of current 09/11/2019 MED GEN ([facility] medications (procedure) 12:00:00 AM LAUREN bernal, PC) Documentation of current 09/11/2019 MED GEN ([facility] medications (procedure) 12:00:00 AM EST Mone bernal, PC) Documentation of current 09/11/2019 MED GEN ([facility] medications (procedure) 12:00:00 AM EST Mone bernal, PC) Documentation of current 09/11/2019 MED GEN ([facility] medications (procedure) 12:00:00 AM EST Mone bernal, PC) OFFICE OUTPATIENT VISIT 15 09/11/2019 M[facility] MUNOZN ([facility] 12:00:00 AM LAUREN Uribe, PC) Documentation of current 09/11/2019 MED GEN ([facility] medications (procedure) 12:00:00 AM EST Mone bernal, PC) Documentation of current 09/11/2019 MED GEN ([facility] medications (procedure) 12:00:00 AM EST Mone bernal, PC) Documentation of current 09/11/2019 MED GEN ([facility] medications (procedure) 12:00:00 AM ADAM [place]) Documentation of current 09/11/2019 MED GEN ([facility] medications (procedure) 12:00:00 AM ADAM [place]) Documentation of current 09/11/2019 MED GEN ([facility] medications (procedure) 12:00:00 AM LAUREN benral, PC) Documentation of current 09/11/2019 MED GEN ([facility] medications (procedure) 12:00:00 AM LAUREN bernal, ADAM) Documentation of current 09/11/2019 MED GEN ([facility] medications (procedure) 12:00:00 AM LAUREN bernal, PC) Documentation of current 09/11/2019 MED GEN ([facility] medications (procedure) 12:00:00 AM ADAM [place]) Documentation of current 09/11/2019 MED GEN ([facility] medications (procedure) 12:00:00 AM LAUREN bernal, PC) Documentation of current 09/11/2019 MED GEN ([facility] medications (procedure) 12:00:00 AM LAUREN bernal, ADAM) Documentation of current 09/11/2019 MED GEN ([facility] medications (procedure) 12:00:00 AM LAUREN bernal, ADAM) OFFICE OUTPATIENT VISIT 15 09/11/2019 M[facility] MUNOZN ([facility]ES 12:00:00 AM ADAM [place]) Documentation of current 09/11/2019 MED GEN ([facility] medications (procedure) 12:00:00 AM ADAM [place]) Documentation of current 09/11/2019 MED GEN ([facility] medications (procedure) 12:00:00 AM ADAM [place]) Documentation of current 09/11/2019 MED GEN ([facility] medications (procedure) 12:00:00 AM LAUREN bernal, PC) Documentation of current 09/11/2019 MED GEN ([facility] medications (procedure) 12:00:00 AM LAUREN bernal, ADAM) Documentation of current 09/11/2019 MED GEN ([facility] medications (procedure) 12:00:00 AM LAUREN bernal, PC) Documentation of current 09/11/2019 MED GEN ([facility] medications (procedure) 12:00:00 AM ADAM [place]) Documentation of current 09/11/2019 MED GEN ([facility] medications (procedure) 12:00:00 AM ADAM [place]) Documentation of current 09/11/2019 MED GEN ([facility] medications (procedure) 12:00:00 AM ADAM [place]) Documentation of current 09/11/2019 MED GEN ([facility] medications (procedure) 12:00:00 AM ADAM [place]) Documentation of current 09/11/2019 MED GEN ([facility] medications (procedure) 12:00:00 AM ADAM [place]) Documentation of current 09/11/2019 MED GEN ([facility] medications (procedure) 12:00:00 AM ADAM [place]) OFFICE OUTPATIENT VISIT 15 09/11/2019 M[facility] CARSON ([facility]ES 12:00:00 AM ADAM [place]) Documentation of current 08/01/2019 MED GEN ([facility] medications (procedure) 12:00:00 AM ADAM [place]) Documentation of current 08/01/2019 MED GEN ([facility] medications (procedure) 12:00:00 AM ADAM [place]) Documentation of current 08/01/2019 MED GEN ([facility] medications (procedure) 12:00:00 AM ADAM [place]) Documentation of current 08/01/2019 MED GEN ([facility] medications (procedure) 12:00:00 AM ADAM [place]) Documentation of current 08/01/2019 MED GEN ([facility] medications (procedure) 12:00:00 AM ADAM [place]) Documentation of current 08/01/2019 MED GEN ([facility] medications (procedure) 12:00:00 AM ADAM [place]) Documentation of current 08/01/2019 MED GEN ([facility] medications (procedure) 12:00:00 AM LAUREN bernal PC) Documentation of current 08/01/2019 MED GEN ([facility] medications (procedure) 12:00:00 AM ADAM [place]) Documentation of current 08/01/2019 MED GEN ([facility] medications (procedure) 12:00:00 AM ADAM [place]) OFFICE OUTPATIENT VISIT 15 08/01/2019 M EDGEN ([facility]ES 12:00:00 AM EST Medical, PC) Documentation of current 08/01/2019 MED GEN ([facility] medications (procedure) 12:00:00 AM EST Mone bernal, PC) Documentation of current 08/01/2019 MED GEN ([facility] medications (procedure) 12:00:00 AM LAUREN bernal, PC) Documentation of current 08/01/2019 MED GEN ([facility] medications (procedure) 12:00:00 AM EST Mone bernal, PC) Documentation of current 08/01/2019 MED GEN ([facility] medications (procedure) 12:00:00 AM EST Mone bernal, PC) Documentation of current 08/01/2019 MED GEN ([facility] medications (procedure) 12:00:00 AM EST Mone stokesical, PC) Documentation of current 08/01/2019 MED GEN ([facility] medications (procedure) 12:00:00 AM EST Mone bernal, PC) Documentation of current 08/01/2019 MED GEN ([facility] medications (procedure) 12:00:00 AM EST Mone bernal, PC) Documentation of current 08/01/2019 MED GEN ([facility] medications (procedure) 12:00:00 AM EST Mone bernal, PC) Documentation of current 08/01/2019 MED GEN ([facility] medications (procedure) 12:00:00 AM EST Mone bernal, PC) OFFICE OUTPATIENT VISIT 15 08/01/2019 M[facility] CARSON ([facility]ES 12:00:00 AM EST Medical, PC) Documentation of current 08/01/2019 MED GEN ([facility] medications (procedure) 12:00:00 AM LAUREN bernal, PC) Documentation of current 08/01/2019 MED GEN ([facility] medications (procedure) 12:00:00 AM EST Mone bernal, PC) Documentation of current 08/01/2019 MED GEN ([facility] medications (procedure) 12:00:00 AM EST Mone bernal, PC) Documentation of current 08/01/2019 MED GEN ([facility] medications (procedure) 12:00:00 AM EST Mone bernal, PC) Documentation of current 08/01/2019 MED GEN ([facility] medications (procedure) 12:00:00 AM EST Mone bernal, PC) Documentation of current 08/01/2019 MED GEN ([facility] medications (procedure) 12:00:00 AM LAUREN bernal, PC) Documentation of current 08/01/2019 MED GEN ([facility] medications (procedure) 12:00:00 AM LAUREN bernal, PC) Documentation of current 08/01/2019 MED GEN ([facility] medications (procedure) 12:00:00 AM LAUREN bernal, PC) Documentation of current 08/01/2019 MED GEN ([facility] medications (procedure) 12:00:00 AM LAUREN bernal, PC) OFFICE OUTPATIENT VISIT 15 08/01/2019 [facility] MUNOZN ([facility] 12:00:00 AM LAUREN Medical, PC) Documentation of current 08/01/2019 MED GEN ([facility] medications (procedure) 12:00:00 AM LAUREN bernal, PC) Documentation of current 08/01/2019 MED GEN ([facility] medications (procedure) 12:00:00 AM LAUREN bernal, PC) Documentation of current 08/01/2019 MED GEN ([facility] medications (procedure) 12:00:00 AM LAUREN bernal, PC) Documentation of current 08/01/2019 MED GEN ([facility] medications (procedure) 12:00:00 AM LAUREN bernal, PC) Documentation of current 08/01/2019 MED GEN ([facility] medications (procedure) 12:00:00 AM LAUREN bernal, PC) Documentation of current 08/01/2019 MED GEN ([facility] medications (procedure) 12:00:00 AM LAUREN bernal, PC) Documentation of current 08/01/2019 MED GEN ([facility] medications (procedure) 12:00:00 AM LAUREN bernal, PC) Documentation of current 08/01/2019 MED GEN ([facility] medications (procedure) 12:00:00 AM LAUREN bernal, PC) Documentation of current 08/01/2019 MED GEN ([facility] medications (procedure) 12:00:00 AM EST Mone bernal, PC) OFFICE OUTPATIENT VISIT 15 08/01/2019 [facility] MUNOZN ([facility] 12:00:00 AM LAUREN Uribe, PC) Documentation of current 08/01/2019 MED GEN ([facility] medications (procedure) 12:00:00 AM LAUREN bernal, PC) Documentation of current 08/01/2019 MED GEN ([facility] medications (procedure) 12:00:00 AM LAUREN bernal, PC) Documentation of current 08/01/2019 MED GEN ([facility] medications (procedure) 12:00:00 AM LAUREN bernal, PC) Documentation of current 08/01/2019 MED GEN ([facility] medications (procedure) 12:00:00 AM LAUREN [facility], PC) Documentation of current 08/01/2019 MED GEN ([facility] medications (procedure) 12:00:00 AM LAUREN bernal, PC) Documentation of current 08/01/2019 MED GEN ([facility] medications (procedure) 12:00:00 AM LAUREN bernal, PC) Documentation of current 08/01/2019 MED GEN ([facility] medications (procedure) 12:00:00 AM LAUREN bernal, PC) Documentation of current 08/01/2019 MED GEN ([facility] medications (procedure) 12:00:00 AM LAUREN bernal, PC) Documentation of current 08/01/2019 MED GEN ([facility] medications (procedure) 12:00:00 AM LAUREN bernal, ADAM) OFFICE OUTPATIENT VISIT 15 08/01/2019 [facility] ([facility]ES 12:00:00 AM LAUREN Uribe, PC) Documentation of current 07/26/2019 MED GEN ([facility] medications (procedure) 12:00:00 AM LAUREN bernal, PC) Documentation of current 07/26/2019 MED GEN ([facility] medications (procedure) 12:00:00 AM LAUREN bernal, PC) Documentation of current 07/26/2019 MED GEN ([facility] medications (procedure) 12:00:00 AM LAUREN bernal, PC) Documentation of current 07/26/2019 MED GEN ([facility] medications (procedure) 12:00:00 AM LAUREN bernal, PC) Documentation of current 07/26/2019 MED GEN ([facility] medications (procedure) 12:00:00 AM EST Mone bernal, PC) Documentation of current 07/26/2019 MED GEN ([facility] medications (procedure) 12:00:00 AM EST Mone stokesical, PC) Documentation of current 07/26/2019 MED GEN ([facility] medications (procedure) 12:00:00 AM EST Mone bernal, PC) Documentation of current 07/26/2019 MED GEN ([facility] medications (procedure) 12:00:00 AM EST [facility]al, PC) Documentation of current 07/26/2019 MED GEN ([facility] medications (procedure) 12:00:00 AM EST [facility]one [facility]ernal, PC) OFFICE OUTPATIENT VISIT 15 07/26/2019 Mone MUNOZN ([facility] MINUTES 12:00:00 AM EST Medical, PC) Documentation of current 07/26/2019 MED GEN ([facility] medications (procedure) 12:00:00 AM LAUREN bernal, PC) Documentation of current 07/26/2019 MED GEN ([facility] medications (procedure) 12:00:00 AM EST [facility]one bernal, PC) Documentation of current 07/26/2019 MED GEN ([facility] medications (procedure) 12:00:00 AM EST Mone bernal, PC) Documentation of current 07/26/2019 MED GEN ([facility] medications (procedure) 12:00:00 AM EST Mone bernal, PC) Documentation of current 07/26/2019 MED GEN ([facility] medications (procedure) 12:00:00 AM EST [facility]one bernal, PC) Documentation of current 07/26/2019 MED GEN ([facility] medications (procedure) 12:00:00 AM EST Mone bernal, PC) Documentation of current 07/26/2019 MED GEN (Ebssie's medications (procedure) 12:00:00 AM EST Mone bernal, PC) Documentation of current 07/26/2019 MED GEN ([facility] medications (procedure) 12:00:00 AM EST [facility]one bernal, PC) Documentation of current 07/26/2019 MED GEN ([facility] medications (procedure) 12:00:00 AM EST Mone bernal, PC) OFFICE OUTPATIENT VISIT 15 07/26/2019 Mone MUNOZN ([facility] MINUTES 12:00:00 AM EST Medical, PC) Documentation of current 07/26/2019 MED GEN ([facility] medications (procedure) 12:00:00 AM EST Mone bernal, PC) Documentation of current 07/26/2019 MED GEN ([facility] medications (procedure) 12:00:00 AM EST Mone bernal, PC) Documentation of current 07/26/2019 MED GEN ([facility] medications (procedure) 12:00:00 AM EST M edical, ADAM) Documentation of current 07/26/2019 MED GEN ([facility] medications (procedure) 12:00:00 AM LAUREN bernal, PC) Documentation of current 07/26/2019 MED GEN ([facility] medications (procedure) 12:00:00 AM LAUREN bernal, ADAM) Documentation of current 07/26/2019 MED GEN ([facility] medications (procedure) 12:00:00 AM LAUREN bernal, PC) Documentation of current 07/26/2019 MED GEN ([facility] medications (procedure) 12:00:00 AM LAUREN bernal, PC) Documentation of current 07/26/2019 MED GEN ([facility] medications (procedure) 12:00:00 AM LAUREN bernal, PC) Documentation of current 07/26/2019 MED GEN ([facility] medications (procedure) 12:00:00 AM LAUREN bernal, ADAM) OFFICE OUTPATIENT VISIT 15 07/26/2019 Mone CARSON ([facility] MINUTES 12:00:00 AM LA[facility]EN [facility]) Documentation of current 07/26/2019 MED GEN ([facility] medications (procedure) 12:00:00 AM LAUREN bernal, PC) Documentation of current 07/26/2019 MED GEN ([facility] medications (procedure) 12:00:00 AM LAUREN bernal, PC) Documentation of current 07/26/2019 MED GEN ([facility] medications (procedure) 12:00:00 AM LAUREN bernal, PC) Documentation of current 07/26/2019 MED GEN ([facility] medications (procedure) 12:00:00 AM LAUREN bernal PC) Documentation of current 07/26/2019 MED GEN ([facility] medications (procedure) 12:00:00 AM LAUREN bernal, PC) Documentation of current 07/26/2019 MED GEN ([facility] medications (procedure) 12:00:00 AM EST Mone bernal, PC) Documentation of current 07/26/2019 MED GEN ([facility] medications (procedure) 12:00:00 AM EST Mone bernal, PC) Documentation of current 07/26/2019 MED GEN ([facility] medications (procedure) 12:00:00 AM LAUREN bernal, PC) Documentation of current 07/26/2019 MED GEN ([facility] medications (procedure) 12:00:00 AM LAUREN bernal, ADAM) OFFICE OUTPATIENT VISIT 15 07/26/2019 Mone CARSON ([facility]ES 12:00:00 AM LAUREN Uribe, PC) Documentation of current 07/26/2019 MED GEN ([facility] medications (procedure) 12:00:00 AM LAUREN bernal, PC) Documentation of current 07/26/2019 MED GEN ([facility] medications (procedure) 12:00:00 AM LAUREN bernal, PC) Documentation of current 07/26/2019 MED GEN ([facility] medications (procedure) 12:00:00 AM LAUREN bernal, PC) Documentation of current 07/26/2019 MED GEN ([facility] medications (procedure) 12:00:00 AM LAUREN bernal, PC) Documentation of current 07/26/2019 MED GEN ([facility] medications (procedure) 12:00:00 AM LAUREN bernal, PC) Documentation of current 07/26/2019 MED GEN ([facility] medications (procedure) 12:00:00 AM LAUREN bernal, PC) Documentation of current 07/26/2019 MED GEN ([facility] medications (procedure) 12:00:00 AM LAUREN bernal, PC) Documentation of current 07/26/2019 MED GEN ([facility] medications (procedure) 12:00:00 AM LAUREN bernal, PC) Documentation of current 07/26/2019 MED GEN ([facility] medications (procedure) 12:00:00 AM LAUREN bernal, PC) OFFICE OUTPATIENT VISIT 15 07/26/2019 oMne CARSON ([facility] MINUTES 12:00:00 AM LAUREN Uribe, PC) Documentation of current 06/01/2019 MED GEN ([facility] medications (procedure) 12:00:00 AM LAUREN bernal, PC) Documentation of current 06/01/2019 MED GEN ([facility] medications (procedure) 12:00:00 AM LAUREN bernal, PC) Documentation of current 06/01/2019 MED GEN ([facility] medications (procedure) 12:00:00 AM LAUREN bernal, PC) Documentation of current 06/01/2019 MED GEN ([facility] medications (procedure) 12:00:00 AM LAUREN bernal, PC) Documentation of current 06/01/2019 MED GEN ([facility] medications (procedure) 12:00:00 AM LAUREN bernal, PC) Documentation of current 06/01/2019 MED GEN ([facility] medications (procedure) 12:00:00 AM LAUREN bernal, PC) Documentation of current 06/01/2019 MED GEN ([facility] medications (procedure) 12:00:00 AM LAUREN bernal, PC) Documentation of current 06/01/2019 MED GEN ([facility] medications (procedure) 12:00:00 AM LAUREN bernal, PC) Documentation of current 06/01/2019 MED GEN ([facility] medications (procedure) 12:00:00 AM LAUREN bernal, PC) Documentation of current 06/01/2019 MED GEN ([facility] medications (procedure) 12:00:00 AM LAUREN [place] [facility], [facility]) Documentation of current 06/01/2019 MED GEN ([facility] medications (procedure) 12:00:00 AM [facility]UREN [place] [facility], [facility]) Documentation of current 06/01/2019 MED GEN ([facility] medications (procedure) 12:00:00 AM LAUREN bernal, PC) Documentation of current 06/01/2019 MED GEN ([facility] medications (procedure) 12:00:00 AM LAUREN bernal, PC) Documentation of current 06/01/2019 MED GEN ([facility] medications (procedure) 12:00:00 AM LAUREN bernal, PC) Documentation of current 06/01/2019 MED GEN ([facility] medications (procedure) 12:00:00 AM LAUREN bernal, PC) Documentation of current 06/01/2019 MED GEN ([facility] medications (procedure) 12:00:00 AM LAUREN bernal, PC) OFFICE OUTPATIENT VISIT 15 06/01/2019 Mone MUNOZN ([facility]ES 12:00:00 AM LAUREN Medical, PC) Documentation of current 06/01/2019 MED GEN ([facility] medications (procedure) 12:00:00 AM LAUREN bernal, PC) Documentation of current 06/01/2019 MED GEN ([facility] medications (procedure) 12:00:00 AM LAUREN bernal, PC) Documentation of current 06/01/2019 MED GEN ([facility] medications (procedure) 12:00:00 AM EST M edical, PC) Documentation of current 06/01/2019 MED GEN ([facility] medications (procedure) 12:00:00 AM LAUREN bernal PC) Documentation of current 06/01/2019 MED GEN ([facility] medications (procedure) 12:00:00 AM ADAM [place]) Documentation of current 06/01/2019 MED GEN ([facility] medications (procedure) 12:00:00 AM LAUREN bernal PC) Documentation of current 06/01/2019 MED GEN ([facility] medications (procedure) 12:00:00 AM ADAM [place]) Documentation of current 06/01/2019 MED GEN ([facility] medications (procedure) 12:00:00 AM LAUREN bernal PC) Documentation of current 06/01/2019 MED GEN ([facility] medications (procedure) 12:00:00 AM ADAM [place]) Documentation of current 06/01/2019 MED GEN ([facility] medications (procedure) 12:00:00 AM ADAM [place]) Documentation of current 06/01/2019 MED GEN ([facility] medications (procedure) 12:00:00 AM ADAM [place]) Documentation of current 06/01/2019 MED GEN ([facility] medications (procedure) 12:00:00 AM ADAM [place]) Documentation of current 06/01/2019 MED GEN ([facility] medications (procedure) 12:00:00 AM ADAM [place]) Documentation of current 06/01/2019 MED GEN ([facility] medications (procedure) 12:00:00 AM ADAM [place]) Documentation of current 06/01/2019 MED GEN ([facility] medications (procedure) 12:00:00 AM ADAM [place]) Documentation of current 06/01/2019 MED GEN ([facility] medications (procedure) 12:00:00 AM ADAM [place]) OFFICE OUTPATIENT VISIT 15 06/01/2019 Mone CARSON ([facility]ES 12:00:00 AM LA[facility]EN [facility]) Documentation of current 06/01/2019 MED GEN ([facility] medications (procedure) 12:00:00 AM LAUREN bernal, PC) Documentation of current 06/01/2019 MED GEN ([facility] medications (procedure) 12:00:00 AM ADAM [place]) Documentation of current 06/01/2019 MED GEN ([facility] medications (procedure) 12:00:00 AM ADAM [place]) Documentation of current 06/01/2019 MED GEN ([facility] medications (procedure) 12:00:00 AM ADAM [place]) Documentation of current 06/01/2019 MED GEN ([facility] medications (procedure) 12:00:00 AM ADAM [place]) Documentation of current 06/01/2019 MED GEN ([facility] medications (procedure) 12:00:00 AM ADAM [place]) Documentation of current 06/01/2019 MED GEN ([facility] medications (procedure) 12:00:00 AM ADAM [place]) Documentation of current 06/01/2019 MED GEN ([facility] medications (procedure) 12:00:00 AM ADAM [place]) Documentation of current 06/01/2019 MED GEN ([facility] medications (procedure) 12:00:00 AM ADAM [place]) Documentation of current 06/01/2019 MED GEN ([facility] medications (procedure) 12:00:00 AM ADAM [place]) Documentation of current 06/01/2019 MED GEN ([facility] medications (procedure) 12:00:00 AM ADAM [place]) Documentation of current 06/01/2019 MED GEN ([facility] medications (procedure) 12:00:00 AM ADAM [place]) Documentation of current 06/01/2019 MED GEN ([facility] medications (procedure) 12:00:00 AM ADAM [place]) Documentation of current 06/01/2019 MED GEN ([facility] medications (procedure) 12:00:00 AM LAUREN bernal PC) Documentation of current 06/01/2019 MED GEN ([facility] medications (procedure) 12:00:00 AM LAUREN bernal PC) Documentation of current 06/01/2019 MED GEN ([facility] medications (procedure) 12:00:00 AM ADAM [place]) OFFICE OUTPATIENT VISIT 15 06/01/2019 Mone CARSON ([facility] MINUTES 12:00:00 AM LAUREN [facility]) Documentation of current 06/01/2019 MED GEN ([facility] medications (procedure) 12:00:00 AM LAUREN bernal, ADAM) Documentation of current 06/01/2019 MED GEN ([facility] medications (procedure) 12:00:00 AM LAUREN bernal, ADAM) Documentation of current 06/01/2019 MED GEN ([facility] medications (procedure) 12:00:00 AM LAUREN bernal, PC) Documentation of current 06/01/2019 MED GEN ([facility] medications (procedure) 12:00:00 AM LAUREN bernal, PC) Documentation of current 06/01/2019 MED GEN ([facility] medications (procedure) 12:00:00 AM LAUREN bernal, PC) Documentation of current 06/01/2019 MED GEN ([facility] medications (procedure) 12:00:00 AM LAUREN bernal, PC) Documentation of current 06/01/2019 MED GEN ([facility] medications (procedure) 12:00:00 AM LAUREN bernal, PC) Documentation of current 06/01/2019 MED GEN ([facility] medications (procedure) 12:00:00 AM LAUREN bernal, PC) Documentation of current 06/01/2019 MED GEN ([facility] medications (procedure) 12:00:00 AM LAUREN bernal, PC) Documentation of current 06/01/2019 MED GEN ([facility] medications (procedure) 12:00:00 AM ADAM [place]) Documentation of current 06/01/2019 MED GEN ([facility] medications (procedure) 12:00:00 AM LAUREN bernal, PC) Documentation of current 06/01/2019 MED GEN ([facility] medications (procedure) 12:00:00 AM LAUREN bernal, PC) Documentation of current 06/01/2019 MED GEN ([facility] medications (procedure) 12:00:00 AM LAUREN bernal, PC) Documentation of current 06/01/2019 MED GEN ([facility] medications (procedure) 12:00:00 AM LAUREN bernal, PC) Documentation of current 06/01/2019 MED GEN ([facility] medications (procedure) 12:00:00 AM LAUREN bernal, PC) Documentation of current 06/01/2019 MED GEN ([facility] medications (procedure) 12:00:00 AM LAUREN bernal, PC) OFFICE OUTPATIENT VISIT 15 06/01/2019 Mone CARSON ([facility] MINUTES 12:00:00 AM ADAM [place]) Documentation of current 06/01/2019 MED GEN ([facility] medications (procedure) 12:00:00 AM ADAM [place]) Documentation of current 06/01/2019 MED GEN ([facility] medications (procedure) 12:00:00 AM ADAM [place]) Documentation of current 06/01/2019 MED GEN ([facility] medications (procedure) 12:00:00 AM ADAM [place]) Documentation of current 06/01/2019 MED GEN ([facility] medications (procedure) 12:00:00 AM ADAM [place]) Documentation of current 06/01/2019 MED GEN ([facility] medications (procedure) 12:00:00 AM ADAM [place]) Documentation of current 06/01/2019 MED GEN ([facility] medications (procedure) 12:00:00 AM ADAM [place]) Documentation of current 06/01/2019 MED GEN ([facility] medications (procedure) 12:00:00 AM ADAM [place]) Documentation of current 06/01/2019 MED GEN ([facility] medications (procedure) 12:00:00 AM ADAM [place]) Documentation of current 06/01/2019 MED GEN ([facility] medications (procedure) 12:00:00 AM ADAM [place]) Documentation of current 06/01/2019 MED GEN ([facility] medications (procedure) 12:00:00 AM ADAM [place]) Documentation of current 06/01/2019 MED GEN ([facility] medications (procedure) 12:00:00 AM ADAM [place]) Documentation of current 06/01/2019 MED GEN ([facility] medications (procedure) 12:00:00 AM ADAM [place]) Documentation of current 06/01/2019 MED GEN ([facility] medications (procedure) 12:00:00 AM ADAM [place]) Documentation of current 06/01/2019 MED GEN ([facility] medications (procedure) 12:00:00 AM ADAM [place]) Documentation of current 06/01/2019 MED GEN ([facility] medications (procedure) 12:00:00 AM LAUREN [facility], ) Documentation of current 06/01/2019 MED GEN ([facility] medications (procedure) 12:00:00 AM EST edical, ) OFFICE OUTPATIENT VISIT 15 06/01/2019 Mone ALEXANDERN ([facility] MINUTES 12:00:00 AM [facility], ) Documentation of current 05/03/2019 MED GEN ([facility] medications (procedure) [facility], [facility] Documentation of current 05/03/2019 MED GEN ([facility] medications (procedure) 12:00:[address] [facility], ) Documentation of current 05/03/2019 MED GEN ([facility] medications (procedure) 12:00:00 AM EDT edical, ) Documentation of current 05/03/2019 MED GEN ([facility] medications (procedure) 12:00:00 AM EDT edical, ) Documentation of current 05/03/2019 MED GEN ([facility] medications (procedure) 12:00:00 AM EDT edical, ) Documentation of current 05/03/2019 MED GEN ([facility] medications (procedure) [facility]:00:[facility], [facility] Documentation of current 05/03/2019 MED GEN ([facility] medications (procedure) 12:00:00 AM EDT edical, ) Documentation of current 05/03/2019 MED GEN ([facility] medications (procedure) 12:00:00 AM EDT edical, ) Documentation of current 05/03/2019 MED GEN ([facility] medications (procedure) 12:00:00 AM EDT edical, ) Documentation of current 05/03/2019 MED GEN ([facility] medications (procedure) 12:00:00 AM EDT edical, ) Documentation of current 05/03/2019 MED GEN ([facility] medications (procedure) 12:00:00 AM EDT edical, ) Peak expiratory flow rate 05/03/2019 ME DGEN ([facility]ie[facility] meter, hand held 12:00:00 AM [facility], ) OFFICE OUTPATIENT VISIT 25 05/03/2019 Mone ALEXANDERN ([facility] MINUTES 12:00:00 AM [facility], ) ECG ROUTINE ECG W/LEAST 12 05/03/2019 M EDGEN ([facility] LDS W/I&R 12:00:00 AM EDT Medical, ) Documentation of current 05/03/2019 MED GEN ([facility] medications (procedure) 12:00:00 AM EDT edical, ) Documentation of current 05/03/2019 MED GEN ([facility] medications (procedure) 12:00:00 AM EDT edical, ) Documentation of current 05/03/2019 MED GEN ([facility] medications (procedure) 12:00:00 AM EDT edical, ) Documentation of current 05/03/2019 MED GEN ([facility] medications (procedure) 12:00:00 AM EDT edical, ) Documentation of current 05/03/2019 MED GEN ([facility] medications (procedure) 12:00:00 AM EDT edical, ) Documentation of current 05/03/2019 MED GEN ([facility] medications (procedure) 12:00:00 AM EDT edical, ) Documentation of current 05/03/2019 MED GEN ([facility] medications (procedure) 12:00:00 AM EDT edical, ) Documentation of current 05/03/2019 MED GEN ([facility]'s medications (procedure) 12:00:00 AM EDT edical, ) Documentation of current 05/03/2019 MED GEN ([facility] medications (procedure) 12:00:00 AM EDT edical, ) Documentation of current 05/03/2019 MED GEN ([facility] medications (procedure) 12:00:00 AM EDT edical, ) Documentation of current 05/03/2019 MED GEN ([facility] medications (procedure) 12:00:00 AM EDT edical, ) Peak expiratory flow rate 05/03/2019 ME DGEN ([facility]ie's meter, hand held 12:00:00 AM EDT Medical, ) OFFICE OUTPATIENT VISIT 25 05/03/2019 M EDGEN ([facility] MINUTES 12:00:00 AM EDT Medical, ) ECG ROUTINE ECG W/LEAST 12 05/03/2019 M ALEXANDERN ([facility] LDS W/I&R 12:00:00 AM EDT Medical, ) Documentation of current 05/03/2019 MED GEN ([facility] medications (procedure) 12:00:00 AM EDT edical, ) Documentation of current 05/03/2019 MED GEN ([facility] medications (procedure) 12:00:00 AM EDT edical, ) Documentation of current 05/03/2019 MED GEN ([facility] medications (procedure) 12:00:00 AM EDT edical, PC) Documentation of current 05/03/2019 MED GEN ([facility] medications (procedure) 12:00:00 AM EDT edical, ) Documentation of current 05/03/2019 MED GEN ([facility]ie's medications (procedure) 12:00:00 AM EDT edical, PC) Documentation of current 05/03/2019 MED GEN ([facility] medications (procedure) 12:00:00 AM EDT edical, PC) Documentation of current 05/03/2019 MED GEN ([facility] medications (procedure) 12:00:00 AM EDT edical, ) Documentation of current 05/03/2019 MED GEN ([facility] medications (procedure) 12:00:00 AM EDT edical, ) Documentation of current 05/03/2019 MED GEN ([facility] medications (procedure) 12:00:00 AM EDT edical, ) Documentation of current 05/03/2019 MED GEN ([facility]ie's medications (procedure) 12:00:00 AM EDT edical, ) Documentation of current 05/03/2019 MED GEN ([facility]ie's medications (procedure) 12:00:00 AM EDT edical, ) Peak expiratory flow rate 05/03/2019 ME DGEN ([facility]essie's meter, hand held 12:00:00 AM [facility] Medical, ) OFFICE OUTPATIENT VISIT 25 05/03/2019 M ALLI ([facility]'s MINUTES 12:00:00 AM [facility] Medical, ) ECG ROUTINE ECG W/LEAST 12 05/03/2019 M ALEXANDERN ([facility]'s LDS W/I&R 12:00:00 AM ED Medical, ) Documentation of current 05/03/2019 MED GEN ([facility]ie's medications (procedure) 12:00:00 AM EDT edical, ) Documentation of current 05/03/2019 MED GEN ([facility]ie[facility] medications (procedure) 12:00:00 AM EDT edical, ) Documentation of current 05/03/2019 MED GEN ([facility]ie's medications (procedure) 12:00:00 AM EDT edical, ) Documentation of current 05/03/2019 MED GEN ([facility]'s medications (procedure) 12:00:00 AM EDT edical, PC) Documentation of current 05/03/2019 MED GEN ([facility]ie's medications (procedure) 12:00:00 AM EDT edical, ) Documentation of current 05/03/2019 MED GEN ([facility]ie's medications (procedure) 12:00:00 AM EDT edical, PC) Documentation of current 05/03/2019 MED GEN ([facility]ie's medications (procedure) 12:00:00 AM EDT edical, PC) Documentation of current 05/03/2019 MED GEN ([facility] medications (procedure) 12:00:00 AM EDT edical, ) Documentation of current 05/03/2019 MED GEN ([facility] medications (procedure) 12:00:00 AM EDT edical, ) Documentation of current 05/03/2019 MED GEN ([facility]ie's medications (procedure) 12:00:00 AM EDT edical, ) Documentation of current 05/03/2019 MED GEN ([facility] medications (procedure) 12:00:00 AM EDT edical, ) Peak expiratory flow rate 05/03/2019 ME DGEN ([facility]essie's meter, hand held 12:00:00 AM [facility] Medical, ) OFFICE OUTPATIENT VISIT 25 05/03/2019 Mone CARSON ([facility]ie's MINUTES 12:00:00 AM [facility], ) ECG ROUTINE ECG W/LEAST 12 05/03/2019 Mone MUNOZN ([facility] LDS [facility] Documentation of current 05/03/2019 MED GEN (Bessie's medications (procedure) 12:00:00 AM EDT edical, ) Documentation of current 05/03/2019 MED GEN ([facility]ie's medications (procedure) 12:00:00 AM EDT edical, ) Documentation of current 05/03/2019 MED GEN ([facility]ie's medications (procedure) 12:00:00 AM EDT edical, ) Documentation of current 05/03/2019 MED GEN ([facility]ie's medications (procedure) 12:00:00 AM EDT edical, ) Documentation of current 05/03/2019 MED GEN ([facility]ie's medications (procedure) 12:00:00 AM EDT edical, ) Documentation of current 05/03/2019 MED GEN ([facility]ie's medications (procedure) 12:00:00 AM EDT edical, ) Documentation of current 05/03/2019 MED GEN ([facility]ie's medications (procedure) 12:00:00 AM EDT edical, PC) Documentation of current 05/03/2019 MED GEN ([facility]ie's medications (procedure) 12:00:00 AM EDT edical, ) Documentation of current 05/03/2019 MED GEN ([facility]ie's medications (procedure) 12:00:00 AM EDT edical, ) Documentation of current 05/03/2019 MED GEN ([facility]ie's medications (procedure) 12:00:00 AM EDT edical, ) Documentation of current 05/03/2019 MED GEN ([facility]ie's medications (procedure) 12:00:00 AM EDT edical, ) Peak expiratory flow rate 05/03/2019 ME DGEN (Bessie's meter, hand held 12:00:00 AM [facility], ) OFFICE OUTPATIENT VISIT 25 05/03/2019 Mone CARSON ([facility]ie's MINUTES 12:00:00 AM [facility], ) ECG ROUTINE ECG W/LEAST 12 05/03/2019 Mone MUNOZN ([facility] LDS [facility] Documentation of current 03/22/2019 MED GEN (Bessie's medications (procedure) 12:00:00 AM EDT edical, ) Documentation of current 03/22/2019 MED GEN (B[facility]ie's medications (procedure) 12:00:00 AM EDT edical, ) Documentation of current 03/22/2019 MED GEN (B[facility]ie's medications (procedure) 12:00:00 AM EDT edical, ) Documentation of current 03/22/2019 MED GEN (B[facility]ie's medications (procedure) 12:00:00 AM EDT edical, PC) Documentation of current 03/22/2019 MED GEN ([facility]ie's medications (procedure) 12:00:00 AM EDT edical, PC) Documentation of current 03/22/2019 MED GEN ([facility]ie's medications (procedure) 12:00:00 AM EDT edical, PC) OFFICE OUTPATIENT VISIT 25 03/22/2019 Mone CARSON ([facility]ie's MINUTES 12:00:00 AM EDT Medical, PC) Documentation of current 03/22/2019 MED GEN (Bessie's medications (procedure) 12:00:00 AM EDT edical, PC) Documentation of current 03/22/2019 MED GEN (Bessie's medications (procedure) 12:00:00 AM EDT edical, PC) Documentation of current 03/22/2019 MED GEN (B[facility]ie's medications (procedure) 12:00:00 AM EDT edical, PC) Documentation of current 03/22/2019 MED GEN ([facility]ie's medications (procedure) 12:00:00 AM EDT edical, PC) Documentation of current 03/22/2019 MED GEN ([facility]ie's medications (procedure) 12:00:00 AM EDT edical, PC) Documentation of current 03/22/2019 MED GEN (Bessie's medications (procedure) 12:00:00 AM EDT edical, PC) OFFICE OUTPATIENT VISIT 25 03/22/2019 Mone CARSON ([facility]ie's MINUTES 12:00:00 AM EDT Medical, PC) Documentation of current 03/22/2019 MED GEN (Bessie's medications (procedure) 12:00:00 AM EDT edical, PC) Documentation of current 03/22/2019 MED GEN (Bessie's medications (procedure) 12:00:00 AM EDT edical, PC) Documentation of current 03/22/2019 MED GEN (Bessie's medications (procedure) 12:00:00 AM EDT edical, PC) Documentation of current 03/22/2019 MED GEN (Bessie's medications (procedure) 12:00:00 AM EDT edical, PC) Documentation of current 03/22/2019 MED GEN (Bessie's medications (procedure) 12:00:00 AM EDT edical, PC) Documentation of current 03/22/2019 MED GEN (Bessie's medications (procedure) 12:00:00 AM EDT edical, PC) OFFICE OUTPATIENT VISIT 25 03/22/2019 Mone ALLI ([facility]ie's MINUTES 12:00:00 AM EDT Medical, PC) Documentation of current 03/22/2019 MED GEN (Bessie's medications (procedure) 12:00:00 AM EDT edical, PC) Documentation of current 03/22/2019 MED GEN (Bessie's medications (procedure) 12:00:00 AM EDT edical, PC) Documentation of current 03/22/2019 MED GEN (Bessie's medications (procedure) 12:00:00 AM EDT edical, PC) Documentation of current 03/22/2019 MED GEN (Bessie's medications (procedure) 12:00:00 AM EDT edical, PC) Documentation of current 03/22/2019 MED GEN (Bessie's medications (procedure) 12:00:00 AM EDT edical, PC) Documentation of current 03/22/2019 MED GEN (B[facility]ie's medications (procedure) 12:00:00 AM EDT edical, PC) OFFICE OUTPATIENT VISIT 25 03/22/2019 M[facility] ALLI ([facility] 12:00:00 AM EDT Medical, [facility]) Documentation of current 03/22/2019 [facility] ([facility] medications (procedure) 12:00:00 AM EDT edical, PC) Documentation of current 03/22/2019 MED GEN ([facility] medications (procedure) 12:00:00 AM EDT edical, PC) Documentation of current 03/22/2019 [facility] GEN ([facility] medications (procedure) 12:00:00 AM EDT edical, PC) Documentation of current 03/22/2019 [facility] GEN ([facility] medications (procedure) 12:00:00 AM EDT edical, PC) Documentation of current 03/22/2019 [facility] GEN ([facility] medications (procedure) 12:00:00 AM EDT edical, PC) Documentation of current 03/22/2019 MED GEN ([facility] medications (procedure) 12:00:00 AM EDT M edical, PC) OFFICE OUTPATIENT VISIT 25 03/22/2019 Mone CARSON ([facility] 12:00:00 AM EDT Medical, PC) Documentation of current 01/30/2019 MED GEN ([facility] medications (procedure) 12:00:00 AM EDT Mone bernal, PC) Documentation of current 01/30/2019 [facility] ([facility] medications (procedure) 12:00:00 AM EDT [facility], PC) Documentation of current 01/30/2019 [facility] ([facility] medications (procedure) 12:00:00 AM EDT [facility], PC) Documentation of current 01/30/2019 [facility] ([facility] medications (procedure) 12:00:00 AM EDT [facility] bernal, PC) OFFICE OUTPATIENT VISIT 15 01/30/2019 Mone CARSON ([facility] 12:00:00 AM EDT Medical, PC) Documentation of current 01/30/2019 MED GEN ([facility] medications (procedure) 12:00:00 AM EDT Mone bernal, PC) Documentation of current 01/30/2019 [facility] GEN ([facility] medications (procedure) 12:00:00 AM EDT [facility], PC) Documentation of current 01/30/2019 MED GEN ([facility] medications (procedure) 12:00:00 AM EDT [facility], PC) Documentation of current 01/30/2019 MED [facility] ([facility] medications (procedure) 12:00:00 AM EDT [facility], PC) OFFICE OUTPATIENT VISIT 15 01/30/2019 Mone CARSON ([facility] 12:00:00 AM EDT Medical, PC) Documentation of current 01/30/2019 MED GEN ([facility] medications (procedure) 12:00:00 AM EDT Mone bernal, PC) Documentation of current 01/30/2019 [facility] ([facility] medications (procedure) 12:00:00 AM EDT [facility], PC) Documentation of current 01/30/2019 [facility] GEN ([facility] medications (procedure) 12:00:00 AM EDT [facility], PC) Documentation of current 01/30/2019 MED GEN ([facility] medications (procedure) 12:00:00 AM EDT [facility], PC) OFFICE OUTPATIENT VISIT 15 01/30/2019 Mone CARSON ([facility] 12:00:00 AM EDT Medical, PC) Documentation of current 01/30/2019 MED [facility] ([facility] medications (procedure) 12:00:00 AM EDT edical, PC) Documentation of current 01/30/2019 MED GEN ([facility] medications (procedure) 12:00:00 AM EDT edical, PC) Documentation of current 01/30/2019 MED GEN ([facility] medications (procedure) 12:00:00 AM EDT edical, PC) Documentation of current 01/30/2019 MED GEN ([facility] medications (procedure) 12:00:00 AM EDT edical, PC) OFFICE OUTPATIENT VISIT 15 01/30/2019 Mone ALLI ([facility] 12:00:00 AM EDT Medical, PC) Documentation of current 01/30/2019 MED GEN ([facility] medications (procedure) 12:00:00 AM EDT [facility], PC) Documentation of current 01/30/2019 MED GEN ([facility] medications (procedure) 12:00:00 AM EDT [facility], PC) Documentation of current 01/30/2019 [facility] ([facility] medications (procedure) 12:00:00 AM EDT [facility], PC) Documentation of current 01/30/2019 MED GEN ([facility] medications (procedure) 12:00:00 AM EDT [facility], PC) OFFICE OUTPATIENT VISIT 15 01/30/2019 Mone ALLI ([facility] 12:00:00 AM EDT Medical, PC) Documentation of current 12/15/2018 MED GEN ([facility] medications (procedure) 12:00:00 AM EDT [facility], PC) Documentation of current 12/15/2018 MED GEN ([facility] medications (procedure) 12:00:00 AM EDT edical, PC) Documentation of current 12/15/2018 [facility] ([facility] medications (procedure) 12:00:00 AM EDT edical, PC) Documentation of current 12/15/2018 MED GEN ([facility] medications (procedure) 12:00:00 AM EDT edical, PC) Documentation of current 12/15/2018 MED GEN ([facility] (procedure) 12:00:00 AM EDT M edical, PC) Documentation of current 12/15/2018 MED GEN ([facility] medications (procedure) 12:00:00 AM EDT [facility], PC) OFFICE OUTPATIENT VISIT 15 12/15/2018 Mone CARSON ([facility] 12:00:00 AM EDT Medical, PC) Documentation of current 12/15/2018 [facility] ([facility] medications (procedure) 12:00:00 AM EDT [facility], PC) Documentation of current 12/15/2018 MED GEN ([facility] medications (procedure) 12:00:00 AM EDT [facility], PC) Documentation of current 12/15/2018 MED GEN ([facility] medications (procedure) 12:00:00 AM EDT [facility], PC) Documentation of current 12/15/2018 MED GEN ([facility] medications (procedure) 12:00:00 AM EDT [facility], PC) Documentation of current 12/15/2018 MED GEN ([facility] medications (procedure) 12:00:00 AM EDT [facility], PC) Documentation of current 12/15/2018 MED GEN ([facility] medications (procedure) 12:00:00 AM EDT [facility], PC) OFFICE OUTPATIENT VISIT 15 12/15/2018 Mone ALLI ([facility] 12:00:00 AM EDT Medical, PC) Documentation of current 12/15/2018 MED GEN ([facility] medications (procedure) 12:00:00 AM EDT [facility], PC) Documentation of current 12/15/2018 MED GEN ([facility] medications (procedure) 12:00:00 AM EDT [facility], PC) Documentation of current 12/15/2018 MED GEN ([facility] medications (procedure) 12:00:00 AM EDT [facility], PC) Documentation of current 12/15/2018 MED GEN ([facility] medications (procedure) 12:00:00 AM EDT [facility], PC) Documentation of current 12/15/2018 [facility] GEN ([facility] medications (procedure) 12:00:00 AM EDT [facility], PC) Documentation of current 12/15/2018 MED GEN ([facility] medications (procedure) 12:00:00 AM EDT [facility], PC) OFFICE OUTPATIENT VISIT 15 12/15/2018 Mone CARSON ([facility] 12:00:00 AM EDT Medical, PC) Documentation of current 12/15/2018 MED GEN ([facility] medications (procedure) 12:00:00 AM EDT edical, PC) Documentation of current 12/15/2018 MED GEN ([facility] medications (procedure) 12:00:00 AM EDT edical, PC) Documentation of current 12/15/2018 [facility] ([facility] medications (procedure) 12:00:00 AM EDT edical, PC) Documentation of current 12/15/2018 MED GEN ([facility] medications (procedure) 12:00:00 AM EDT edical, PC) Documentation of current 12/15/2018 [facility] ([facility] medications (procedure) 12:00:00 AM EDT edical, PC) Documentation of current 12/15/2018 [facility] ([facility] medications (procedure) 12:00:00 AM EDT edical, PC) OFFICE OUTPATIENT VISIT 15 12/15/2018 Mone CARSON ([facility] 12:00:00 AM EDT Medical, PC) Documentation of current 12/15/2018 [facility] ([facility] medications (procedure) 12:00:00 AM EDT edical, PC) Documentation of current 12/15/2018 MED GEN ([facility] medications (procedure) 12:00:00 AM EDT edical, PC) Documentation of current 12/15/2018 [facility] GEN ([facility] medications (procedure) 12:00:00 AM EDT [facility], PC) Documentation of current 12/15/2018 MED GEN ([facility] medications (procedure) 12:00:00 AM EDT edical, PC) Documentation of current 12/15/2018 [facility] ([facility] medications (procedure) 12:00:00 AM EDT edical, PC) Documentation of current 12/15/2018 [facility] ([facility] medications (procedure) 12:00:00 AM EDT edical, PC) OFFICE OUTPATIENT VISIT 15 12/15/2018 Mone CARSON ([facility] 12:00:00 AM EDT Medical, PC) Documentation of current 09/14/2018 [facility] ([facility] medications (procedure) 12:00:00 AM EST [facility] b[facility]al, PC) Documentation of current 09/14/2018 [facility] ([facility] medications (procedure) 12:00:00 AM EST [facility] b[facility]al, PC) Documentation of current 09/14/2018 [facility] ([facility] medications (procedure) 12:00:00 AM EST [facility]okes[facility], PC) Documentation of current 09/14/2018 [facility] ([facility] medications (procedure) 12:00:00 AM EST [facility] bernal, PC) OFFICE OUTPATIENT VISIT 15 09/14/2018 Mone CARSON ([facility] 12:00:00 AM EST Medical, PC) Documentation of current 09/14/2018 [facility] ([facility] medications (procedure) 12:00:00 AM EST [facility] bernal, PC) Documentation of current 09/14/2018 [facility] ([facility] medications (procedure) 12:00:00 AM EST [facility] bernal, PC) Documentation of current 09/14/2018 [facility] ([facility] medications (procedure) 12:00:00 AM EST [facility], PC) Documentation of current 09/14/2018 [facility] ([facility] medications (procedure) 12:00:00 AM EST [facility], PC) OFFICE OUTPATIENT VISIT 15 09/14/2018 Mone CARSON ([facility] 12:00:00 AM EST Medical, PC) Documentation of current 09/14/2018 [facility] ([facility] medications (procedure) 12:00:00 AM EST [facility] bernal, PC) Documentation of current 09/14/2018 [facility] ([facility] medications (procedure) 12:00:00 AM EST [facility] bernal, PC) Documentation of current 09/14/2018 [facility] ([facility] (procedure) 12:00:00 AM EST [facility], PC) Documentation of current 09/14/2018 [facility] ([facility] medications (procedure) 12:00:00 AM EST [facility], PC) OFFICE OUTPATIENT VISIT 15 09/14/2018 Mone CARSON ([facility] 12:00:00 AM EST Medical, PC) OFFICE OUTPATIENT VISIT 15 09/14/2018 Mone CARSON ([facility] 12:00:00 AM EST Medical, PC) Documentation of current 09/14/2018 [facility] GEN ([facility] medications (procedure) 12:00:00 AM EST [facility], PC) Documentation of current 09/14/2018 [facility] ([facility] medications (procedure) 12:00:00 AM EST [facility], PC) Documentation of current 09/14/2018 [facility] ([facility] medications (procedure) 12:00:00 AM EST [facility], PC) Documentation of current 09/14/2018 [facility] ([facility] medications (procedure) 12:00:00 AM EST [facility], PC) OFFICE OUTPATIENT VISIT 15 09/14/2018 Mone CARSON ([facility] 12:00:00 AM EST Medical, PC) Documentation of current 09/14/2018 [facility] ([facility] medications (procedure) 12:00:00 AM EST [facility], PC) Documentation of current 09/14/2018 [facility] ([facility] medications (procedure) 12:00:00 AM EST [facility], PC) Documentation of current 09/14/2018 [facility] ([facility] medications (procedure) 12:00:00 AM EST [facility], PC) Documentation of current 09/14/2018 [facility] ([facility] medications (procedure) 12:00:00 AM EST [facility], PC) OFFICE OUTPATIENT VISIT 25 07/14/2018 Mone CARSON ([facility] 12:00:00 AM EST Medical, PC) OFFICE OUTPATIENT VISIT 07/14/2018 Mone CARSON ([facility] 12:00:00 AM EST Medical, PC) OFFICE OUTPATIENT VISIT 07/14/2018 Mone CARSON ([facility] 12:00:00 AM EST Medical, PC) OFFICE OUTPATIENT VISIT 07/14/2018 Mone CARSON ([facility] 12:00:00 AM EST Medical, PC) OFFICE OUTPATIENT VISIT 25 07/14/2018 Mone CARSON ([facility] 12:00:00 AM EST Medical, PC) OFFICE OUTPATIENT VISIT 15 05/24/2018 Mone CARSON ([facility] 12:00:00 AM EST Medical, PC) OFFICE OUTPATIENT VISIT 15 05/24/2018 Mone CARSON ([facility] 12:00:00 AM EST Medical, PC) OFFICE OUTPATIENT VISIT 15 05/24/2018 Mone CARSON ([facility] 12:00:00 AM EST Medical, PC) OFFICE OUTPATIENT VISIT 15 05/24/2018 Mone ALLI ([facility] 12:00:00 AM EST Medical, PC) OFFICE OUTPATIENT VISIT 15 05/24/2018 Mone ALLI ([facility] 12:00:00 AM EST Medical, PC) Documentation of current 04/15/2018 [facility] ([facility] medications (procedure) 12:00:00 AM EDT edical, PC) Documentation of current 04/15/2018 [facility] ([facility] medications (procedure) 12:00:00 AM EDT edical, PC) Documentation of current 04/15/2018 [facility] ([facility] medications (procedure) 12:00:00 AM EDT edical, PC) Documentation of current 04/15/2018 [facility] ([facility] medications (procedure) 12:00:00 AM EDT edical, PC) Documentation of current 04/15/2018 [facility] ([facility] medications (procedure) 12:00:00 AM EDT edical, PC) Documentation of current 04/15/2018 [facility] ([facility] medications (procedure) 12:00:00 AM EDT edical, PC) OFFICE OUTPATIENT VISIT 15 04/15/2018 M[facility] ALLI ([facility] 12:00:00 AM EDT Medical, ) Documentation of current 04/15/2018 [facility] ([facility] medications (procedure) 12:00:00 AM EDT edical, PC) Documentation of current 04/15/2018 [facility] GEN ([facility] medications (procedure) 12:00:00 AM EDT edical, PC) Documentation of current 04/15/2018 [facility] ([facility] medications (procedure) 12:00:00 AM EDT edical, PC) Documentation of current 04/15/2018 [facility] ([facility] medications (procedure) 12:00:00 AM EDT edical, PC) Documentation of current 04/15/2018 [facility] ([facility] medications (procedure) 12:00:00 AM EDT edical, PC) Documentation of current 04/15/2018 [facility] ([facility] medications (procedure) 12:00:00 AM EDT edical, PC) OFFICE OUTPATIENT VISIT 15 04/15/2018 Mone ALEXANDERN ([facility] 12:00:00 AM EDT Medical, PC) Documentation of current 04/15/2018 MED GEN ([facility] medications (procedure) 12:00:00 AM EDT edical, PC) Documentation of current 04/15/2018 [facility] GEN ([facility] medications (procedure) 12:00:00 AM EDT edical, PC) Documentation of current 04/15/2018 [facility] ([facility] medications (procedure) 12:00:00 AM EDT edical, PC) Documentation of current 04/15/2018 [facility] ([facility] medications (procedure) 12:00:00 AM EDT edical, PC) Documentation of current 04/15/2018 [facility] ([facility] medications (procedure) 12:00:00 AM EDT edical, PC) Documentation of current 04/15/2018 [facility] ([facility] medications (procedure) 12:00:00 AM EDT edical, PC) OFFICE OUTPATIENT VISIT 15 04/15/2018 Mone CARSON ([facility] 12:00:00 AM EDT Medical, PC) Documentation of current 04/15/2018 [facility] GEN ([facility] medications (procedure) 12:00:00 AM EDT edical, PC) Documentation of current 04/15/2018 [facility] ([facility] medications (procedure) 12:00:00 AM EDT edical, PC) Documentation of current 04/15/2018 [facility] GEN ([facility] medications (procedure) 12:00:00 AM EDT edical, PC) Documentation of current 04/15/2018 [facility] GEN ([facility] medications (procedure) 12:00:00 AM EDT edical, PC) Documentation of current 04/15/2018 [facility] ([facility] medications (procedure) 12:00:00 AM EDT edical, PC) Documentation of current 04/15/2018 [facility] ([facility] medications (procedure) 12:00:00 AM EDT edical, PC) OFFICE OUTPATIENT VISIT 15 04/15/2018 Mone CARSON ([facility] 12:00:00 AM EDT Medical, PC) Documentation of current 04/15/2018 MED GEN ([facility] medications (procedure) 12:00:00 AM EDT M edical, PC) Documentation of current 04/15/2018 MED GEN ([facility] medications (procedure) 12:00:00 AM EDT [facility] bernal, PC) Documentation of current 04/15/2018 [facility] ([facility] medications (procedure) 12:00:00 AM EDT [facility] bernal, PC) Documentation of current 04/15/2018 [facility] ([facility] medications (procedure) 12:00:00 AM EDT [facility] bernal, PC) Documentation of current 04/15/2018 [facility] ([facility] medications (procedure) 12:00:00 AM EDT [facility] b[facility]al, PC) Documentation of current 04/15/2018 [facility] ([facility] medications (procedure) 12:00:00 AM EDT [facility], PC) OFFICE OUTPATIENT VISIT 15 04/15/2018 Mone CARSON ([facility] 12:00:00 AM EDT Medical, PC) Documentation of current 01/07/2018 MED GEN ([facility] medications (procedure) 12:00:00 AM EDT [facility] bernal, PC) Documentation of current 01/07/2018 [facility] ([facility] medications (procedure) 12:00:00 AM EDT [facility] bernal, PC) Documentation of current 01/07/2018 [facility] ([facility] medications (procedure) 12:00:00 AM EDT [facility] bernal, PC) Documentation of current 01/07/2018 [facility] ([facility] medications (procedure) 12:00:00 AM EDT [facility], PC) OFFICE OUTPATIENT VISIT 15 01/07/2018 Mone CARSON ([facility] 12:00:00 AM EDT Medical, PC) Documentation of current 01/07/2018 [facility] ([facility] medications (procedure) 12:00:00 AM EDT [facility], PC) Documentation of current 01/07/2018 [facility] ([facility] medications (procedure) 12:00:00 AM EDT [facility], PC) Documentation of current 01/07/2018 [facility] ([facility] medications (procedure) 12:00:00 AM EDT [facility], PC) Documentation of current 01/07/2018 [facility] ([facility] medications (procedure) 12:00:00 AM EDT [facility], PC) OFFICE OUTPATIENT VISIT 15 01/07/2018 Mone CARSON ([facility] 12:00:00 AM EDT Medical, PC) Documentation of current 01/07/2018 MED [facility] ([facility] medications (procedure) 12:00:00 AM EDT M edical, PC) Documentation of current 01/07/2018 [facility] ([facility] medications (procedure) 12:00:00 AM EDT edical, PC) Documentation of current 01/07/2018 [facility] ([facility] medications (procedure) 12:00:00 AM EDT edical, PC) Documentation of current 01/07/2018 [facility] ([facility] medications (procedure) 12:00:00 AM EDT edical, PC) OFFICE OUTPATIENT VISIT 15 01/07/2018 Mone CARSON ([facility] 12:00:00 AM EDT Medical, PC) Documentation of current 01/07/2018 [facility] ([facility] medications (procedure) 12:00:00 AM EDT edical, PC) Documentation of current 01/07/2018 [facility] ([facility] medications (procedure) 12:00:00 AM EDT edical, PC) Documentation of current 01/07/2018 [facility] ([facility] medications (procedure) 12:00:00 AM EDT edical, PC) Documentation of current 01/07/2018 [facility] ([facility] medications (procedure) 12:00:00 AM EDT edical, PC) OFFICE OUTPATIENT VISIT 15 01/07/2018 Mone CARSON ([facility] 12:00:00 AM EDT Medical, PC) Documentation of current 01/07/2018 [facility] ([facility] medications (procedure) 12:00:00 AM EDT edical, PC) Documentation of current 01/07/2018 [facility] ([facility] medications (procedure) 12:00:00 AM EDT edical, PC) Documentation of current 01/07/2018 [facility] ([facility] medications (procedure) 12:00:00 AM EDT M edical, PC) Documentation of current 01/07/2018 [facility] ([facility] medications (procedure) 12:00:00 AM EDT edical, PC) OFFICE OUTPATIENT VISIT 15 01/07/2018 Mone CARSON ([facility] 12:00:00 AM EDT Medical, PC) OFFICE OUTPATIENT VISIT 12/07/2017 Mnoe ALLI ([facility] 12:00:00 AM EDT Medical, ) OFFICE OUTPATIENT VISIT 12/07/2017 Mone ALLI ([facility] 12:00:00 AM EDT Medical, ) OFFICE OUTPATIENT VISIT 12/07/2017 Mone ALLI ([facility] 12:00:00 AM EDT Medical, PC) OFFICE OUTPATIENT VISIT 12/07/2017 M[facility] ALLI ([facility] 12:00:00 AM EDT Medical, ) OFFICE OUTPATIENT VISIT 12/07/2017 [facility] ALLI ([facility] 12:00:00 AM EDT Medical, PC) Documentation of current 11/24/2017 [facility] ([facility] medications (procedure) 12:00:00 AM EDT edical, ) Documentation of current 11/24/2017 [facility] ([facility] medications (procedure) 12:00:00 AM EDT edical, ) OFFICE OUTPATIENT VISIT 15 11/24/2017 M[facility] ALLI ([facility] 12:00:00 AM EDT Medical, ) Documentation of current 11/24/2017 MED [facility] ([facility] medications (procedure) 12:00:00 AM EDT edical, ) Documentation of current 11/24/2017 [facility] ([facility] medications (procedure) 12:00:00 AM EDT edical, ) OFFICE OUTPATIENT VISIT 15 11/24/2017 M[facility] ALLI ([facility] 12:00:00 AM EDT Medical, ) OFFICE OUTPATIENT VISIT 15 11/24/2017 Mone ALLI ([facility] 12:00:00 AM EDT Medical, ) Documentation of current 11/24/2017 MED [facility] ([facility] medications (procedure) 12:00:00 AM EDT edical, PC) Documentation of current 11/24/2017 [facility] ([facility] medications (procedure) 12:00:00 AM EDT edical, ) Documentation of current 11/24/2017 [facility] ([facility] medications (procedure) 12:00:00 AM EDT edical, ) Documentation of current 11/24/2017 MED GEN ([facility] medications (procedure) 12:00:00 AM EDT edical, ) OFFICE OUTPATIENT VISIT 15 11/24/2017 Mone CARSON ([facility] 12:00:00 AM ED Medical, ) Documentation of current 11/24/2017 MED GEN ([facility] medications (procedure) 12:00:00 AM EDT edical, ) Documentation of current 11/24/2017 [facility] ([facility] medications (procedure) 12:00:00 AM EDT edical, ) OFFICE OUTPATIENT VISIT 15 11/24/2017 Mone CARSON ([facility] 12:00:00 AM ED Medical, ) Documentation of current 08/16/2017 [facility] ([facility] medications (procedure) 12:00:00 AM EST edical, ) Documentation of current 08/16/2017 [facility] ([facility] medications (procedure) 12:00:00 AM EST edical, ) Administration of 08/16/2017 [facility] W/LEAST 12 08/16/2017 Mone CARSON ([facility] LDS W/I&R 12:00:00 AM EST Medical, PC) INFLUENZA VACCINE 08/16/2017 [facility] ([facility] 12:00:00 AM EST Medical, PC) Documentation of current 08/16/2017 [facility] ([facility] medications (procedure) 12:00:00 AM EST edical, ) Documentation of current 08/16/2017 [facility] ([facility] medications (procedure) 12:00:00 AM EST edical, PC) Documentation of current 08/16/2017 [facility] ([facility] medications (procedure) 12:00:00 AM EST edical, PC) Administration of 08/16/2017 [facility] ([facility] influenza virus vaccine 12:00:00 AM EST edical, ) ECG ROUTINE ECG W/LEAST 12 08/16/2017 Mone MUNOZN ([facility] LDS W/I&R 12:00:00 AM EST Medical, PC) INFLUENZA VACCINE 08/16/2017 [facility] ([facility] 12:00:00 AM EST Medical, PC) Documentation of current 08/16/2017 [facility] ([facility] medications (procedure) 12:00:00 AM LAUREN bernal, ADAM) Documentation of current 08/16/2017 MED [facility] ([facility] medications (procedure) 12:00:00 AM LAUREN bernal, PC) Documentation of current 08/16/2017 [facility] ([facility] medications (procedure) 12:00:00 AM LAUREN bernal, PC) Documentation of current 08/16/2017 MED GEN ([facility] medications (procedure) 12:00:00 AM LAUREN bernal, PC) Documentation of current 08/16/2017 MED GEN ([facility] medications (procedure) 12:00:00 AM LAUREN bernal, PC) Documentation of current 08/16/2017 MED GEN ([facility] medications (procedure) 12:00:00 AM LAUREN bernal, PC) Documentation of current 08/16/2017 MED GEN ([facility] medications (procedure) 12:00:00 AM LAUREN bernal, PC) Documentation of current 08/16/2017 MED GEN ([facility] medications (procedure) 12:00:00 AM LAUREN bernal, PC) Documentation of current 08/16/2017 MED GEN ([facility] medications (procedure) 12:00:00 AM LAUREN bernal, PC) Documentation of current 08/16/2017 MED GEN ([facility] medications (procedure) 12:00:00 AM LAUREN bernal, PC) Documentation of current 08/16/2017 MED GEN ([facility] medications (procedure) 12:00:00 AM LAUREN bernal, PC) Documentation of current 08/16/2017 MED [facility] ([facility] medications (procedure) 12:00:00 AM LAUREN bernal, PC) Documentation of current 08/16/2017 MED GEN ([facility] medications (procedure) 12:00:00 AM LAUREN bernal, PC) Documentation of current 08/16/2017 MED GEN ([facility] medications (procedure) 12:00:00 AM LAUREN bernal, PC) Documentation of current 08/16/2017 MED GEN ([facility] medications (procedure) 12:00:00 AM LAUREN bernal, PC) Documentation of current 08/16/2017 MED GEN ([facility] medications (procedure) 12:00:00 AM LAUREN bernal, PC) Documentation of current 08/16/2017 MED [facility] ([facility] medications (procedure) 12:00:00 AM LAUREN bernal, PC) Documentation of current 08/16/2017 MED GEN ([facility] medications (procedure) 12:00:00 AM LAUREN bernal, ADAM) Documentation of current 08/16/2017 MED [facility] ([facility] medications (procedure) 12:00:00 AM LAUREN bernal, PC) Documentation of current 08/16/2017 MED [facility] ([facility] medications (procedure) 12:00:00 AM LAUREN bernal, PC) Documentation of current 08/16/2017 MED [facility] ([facility] medications (procedure) 12:00:00 AM LAUREN bernal, PC) Documentation of current 08/16/2017 [facility] ([facility] medications (procedure) 12:00:00 AM LAUREN bernal, PC) Documentation of current 08/16/2017 MED GEN ([facility] medications (procedure) 12:00:00 AM LAUREN bernal, PC) Documentation of current 08/16/2017 MED [facility] ([facility] medications (procedure) 12:00:00 AM LAUREN bernal, PC) Documentation of current 08/16/2017 MED GEN ([facility] medications (procedure) 12:00:00 AM LAUREN bernal, PC) Documentation of current 08/16/2017 MED [facility] ([facility] medications (procedure) 12:00:00 AM LAUREN bernal, PC) Documentation of current 08/16/2017 MED [facility] ([facility] medications (procedure) 12:00:00 AM LAUREN bernal, PC) Documentation of current 08/16/2017 MED [facility] ([facility] medications (procedure) 12:00:00 AM LAUREN bernal, PC) Documentation of current 08/16/2017 MED [facility] ([facility] medications (procedure) 12:00:00 AM LAUREN bernal, PC) Documentation of current 08/16/2017 MED GEN ([facility] medications (procedure) 12:00:00 AM LAUREN bernal, PC) Documentation of current 08/16/2017 MED [facility] ([facility] medications (procedure) 12:00:00 AM LAUREN bernal, PC) Documentation of current 08/16/2017 [facility] ([facility] medications (procedure) 12:00:00 AM LAUREN bernal, PC) Documentation of current 08/16/2017 MED [facility] ([facility] medications (procedure) 12:00:00 AM ADAM [place]) Documentation of current 08/16/2017 MED [facility] ([facility] medications (procedure) 12:00:00 AM ADAM [place]) Documentation of current 08/16/2017 MED GEN ([facility] medications (procedure) 12:00:00 AM [facility]EN [facility]ernal, [facility]) Administration of 08/16/2017 MEDGEN ([facility] influenza virus vaccine 12:00:00 AM LAUREN bernal, ADAM) ECG ROUTINE ECG W/LEAST 12 08/16/2017 [facility] EDGEN ([facility] LDS W/I&R 12:00:00 AM LAUREN Uribe, ) INFLUENZA VACCINE 08/16/2017 MEDGEN ([facility] 12:00:00 AM LAUREN Uribe, PC) Documentation of current 08/16/2017 MED GEN ([facility] medications (procedure) 12:00:00 AM ADAM Whatley) Documentation of current 08/16/2017 MED GEN ([facility] medications (procedure) 12:00:00 AM LAUREN bernal, ADAM) Documentation of current 08/16/2017 MED GEN ([facility] medications (procedure) 12:00:00 AM ADAM Whatley) Documentation of current 08/16/2017 MED GEN ([facility] medications (procedure) 12:00:00 AM LAUREN bernal, ADAM) Documentation of current 08/16/2017 MED GEN ([facility]'s medications (procedure) 12:00:00 AM ADAM Whatley) Documentation of current 08/16/2017 MED GEN ([facility] medications (procedure) 12:00:00 AM LAUREN bernal, ADAM) Documentation of current 08/16/2017 MED GEN ([facility] medications (procedure) 12:00:00 AM [facility]UREN bernal, PC) Documentation of current 08/16/2017 MED GEN ([facility] medications (procedure) 12:00:00 AM LAUREN bernal, ADAM) Documentation of current 08/16/2017 MED GEN ([facility] medications (procedure) 12:00:00 AM LAUREN bernal, PC) Documentation of current 08/16/2017 MED GEN ([facility] medications (procedure) 12:00:00 AM LAUREN bernal, ADAM) Documentation of current 08/16/2017 MED GEN ([facility] medications (procedure) 12:00:00 AM LAUREN bernal, ADAM) Documentation of current 08/16/2017 MED GEN ([facility]'s medications (procedure) 12:00:00 AM LAUREN bernal, ADAM) Documentation of current 08/16/2017 MED GEN ([facility]'s medications (procedure) 12:00:00 AM LAUREN bernal, ADAM) Administration of 08/16/2017 MEDGEN ([facility]'s influenza virus vaccine 12:00:00 AM LAUREN bernal, ADAM) ECG ROUTINE ECG W/LEAST 12 08/16/2017 [facility] EDGEN ([facility] LDS W/I&R 12:00:00 AM [facility] Jojo, ) INFLUENZA VACCINE 08/16/2017 MEDGEN ([facility]'s 12:00:00 AM LAUREN Uribe, ) Documentation of current 08/16/2017 MED GEN ([facility]ie's medications (procedure) 12:00:00 AM ADAM Whatley) Documentation of current 08/16/2017 MED GEN ([facility]ie's medications (procedure) 12:00:00 AM LAUREN bernal, PC) Documentation of current 08/16/2017 MED GEN ([facility]ie's medications (procedure) 12:00:00 AM LAUREN bernal, PC) Documentation of current 08/16/2017 MED GEN ([facility]ie's medications (procedure) 12:00:00 AM LAUREN bernal, PC) Documentation of current 08/16/2017 MED GEN ([facility]ie's medications (procedure) 12:00:00 AM ADAM Whatley) Documentation of current 08/16/2017 MED GEN ([facility]'s medications (procedure) 12:00:00 AM LAUREN bernal, PC) Documentation of current 08/16/2017 MED GEN ([facility]'s medications (procedure) 12:00:00 AM LAUREN bernal, PC) Documentation of current 08/16/2017 MED GEN ([facility]'s medications (procedure) 12:00:00 AM LAUREN bernal, PC) Documentation of current 08/16/2017 MED GEN ([facility] medications (procedure) 12:00:00 AM LAUREN bernal, PC) Documentation of current 08/16/2017 MED GEN ([facility]'s medications (procedure) 12:00:00 AM EST [facility] bernal, PC) Documentation of current 08/16/2017 MED GEN ([facility]'s medications (procedure) 12:00:00 AM EST [facility] bernal, PC) Documentation of current 08/16/2017 MED GEN ([facility] medications (procedure) 12:00:00 AM EST [facility] bernal, PC) Administration of 08/16/2017 MEDGEN ([facility]'s influenza virus vaccine 12:00:00 AM EST [facility]one bernal, PC) ECG ROUTINE ECG W/LEAST 12 08/16/2017 [facility] EDGEN ([facility] LDS W/I&R 12:00:00 AM EST Medical, PC) INFLUENZA VACCINE 08/16/2017 MEDGEN ([facility] 12:00:00 AM EST Medical, PC) Documentation of current 05/24/2017 MED GEN ([facility] medications (procedure) 12:00:00 AM EST [facility]one bernal, PC) Documentation of current 05/24/2017 MED GEN ([facility]'s medications (procedure) 12:00:00 AM EST [facility]one bernal, PC) Documentation of current 05/24/2017 MED GEN ([facility]ie's medications (procedure) 12:00:00 AM EST [facility] bernal, PC) Documentation of current 05/24/2017 MED GEN ([facility]'s medications (procedure) 12:00:00 AM EST Mone bernal, PC) OFFICE OUTPATIENT NEW 05/24/2017 MED GEN ([facility] MINUTES 12:00:00 AM EST Medical, PC) Documentation of current 05/24/2017 MED GEN ([facility] medications (procedure) 12:00:00 AM EST [facility]one bernal, PC) Documentation of current 05/24/2017 MED GEN ([facility] medications (procedure) 12:00:00 AM EST [facility]one bernal, PC) Documentation of current 05/24/2017 MED GEN ([facility] medications (procedure) 12:00:00 AM EST [facility]one bernal, PC) Documentation of current 05/24/2017 MED GEN ([facility]ie's medications (procedure) 12:00:00 AM EST [facility] stokesical, PC) OFFICE OUTPATIENT NEW 05/24/2017 MED GEN ([facility] MINUTES 12:00:00 AM EST Medical, PC) Documentation of current 05/24/2017 MED GEN ([facility] medications (procedure) 12:00:00 AM EST M edical, PC) Documentation of current 05/24/2017 MED GEN ([facility]ie's medications (procedure) 12:00:00 AM EST M edical, PC) Documentation of current 05/24/2017 MED GEN (Eb[facility]ie's medications (procedure) 12:00:00 AM EST edical, PC) Documentation of current 05/24/2017 MED GEN ([facility] medications (procedure) 12:00:00 AM EST edical, PC) OFFICE OUTPATIENT NEW 05/24/2017 MED GEN ([facility] MINUTES 12:00:00 AM EST Medical, PC) Documentation of current 05/24/2017 MED GEN ([facility] medications (procedure) 12:00:00 AM EST M edical, PC) Documentation of current 05/24/2017 MED GEN ([facility]ie's medications (procedure) 12:00:00 AM EST edical, PC) Documentation of current 05/24/2017 MED GEN ([facility]ie[facility] medications (procedure) 12:00:00 AM EST edical, PC) Documentation of current 05/24/2017 MED GEN ([facility]ie's medications (procedure) 12:00:00 AM EST edical, PC) OFFICE OUTPATIENT NEW 05/24/2017 MED GEN ([facility] MINUTES 12:00:00 AM EST Medical, PC) Documentation of current 05/24/2017 MED GEN ([facility]ie's medications (procedure) 12:00:00 AM EST edical, PC) Documentation of current 05/24/2017 MED GEN ([facility] medications (procedure) 12:00:00 AM EST M edical, PC) Documentation of current 05/24/2017 MED GEN ([facility] medications (procedure) 12:00:00 AM EST edical, PC) Documentation of current 05/24/2017 MED GEN ([facility]ie's medications (procedure) 12:00:00 AM EST edical, PC) OFFICE OUTPATIENT NEW 05/24/2017 MED GEN ([facility] MINUTES 12:00:00 AM EST Medical, PC) Results ID Date Data Source [id number] 04/07/2020 02:17:00 PM EDT [facility] Name Value Range Interpretation Description Data Sup porting Code Source(s) Document(s ) SARS [facility] coronavirus 2 RNA This lab was ordered by [facility] and reported by [facility]. ID Date Data Source [id number] 02/26/2020 11:18:00 AM EDT [facility] Name Value Range Interpretation Description Data Sup porting Code Source(s) Document(s ) SARS [facility] coronavirus 2 RNA This lab was ordered by [facility] and reported by [facility]. Procedure Social History Code Duration Value Status Description Data Source(s ) Smoking 04/09/2020 quit smoking completed quit smoking 1963, MEDG EN (St 12:00:00 AM EDT 1963, retired retired from [employer], from [facility] [employer], Ed, lives w/ , PC) lives w/ , has 1 son and 1 has 1 son and 1 daughter daughter Smoking 04/09/2020 Former smoker completed Former smoker MEDGEN ( St 12:00:00 AM EDT [facility], ) Smoking 04/02/2020 quit smoking completed quit smoking 1963, MEDG EN (St 12:00:00 AM EDT 1961, retired retired from [employer] [facility] [employer], from [employer], Ed, lives w/ , PC) lives w/ , has 1 son and 1 has 1 son and 1 daughter daughter Smoking 04/02/2020 Former smoker completed Former smoker MEDGEN ( St 12:00:00 AM EDT [facility], ) Smoking 03/14/2020 quit smoking completed quit smoking 1963, MEDG EN (St 12:00:00 AM EDT 1961, retired retired from [employer] [facility] [employer], from [employer] [employer], Ed, lives w/ , PC) lives w/ , has 1 son and 1 has 1 son and 1 daughter daughter Smoking 03/14/2020 Former smoker completed Former smoker MEDGEN ( St 12:00:00 AM EDT [facility], ) Smoking 02/22/2020 quit smoking completed quit smoking 1963, MEDG EN (St 12:00:00 AM EDT 1963, retired retired from [facility] [employer], from [facility], Ed, lives w/ , PC) lives w/ , has 1 son and 1 has 1 son and 1 daughter daughter Smoking 02/22/2020 Former smoker completed Former smoker MEDGEN ( St 12:00:00 AM T [facility], ) Smoking 02/20/2020 quit smoking completed quit smoking 1963, MEDG EN (St 12:00:00 AM EDT 1964, retired retired from [employer] [facility] [employer], from [facility], Ed, lives w/ , PC) lives w/ , has 1 son and 1 has 1 son and 1 daughter daughter Smoking 02/20/2020 Former smoker completed Former smoker MEDGEN ( St 12:00:00 AM EDT [facility], ) Vital Signs ID Date Data Source UNK Name Value Range Interpretation Code Description Data Source(s) Heart rate 86 /min 86 /min MEDGEN ([facility] , ) Respiratory rate 12 /min 12 /min MEDGEN ( [facility] , ) Body temperature 98.1 F 98.1 F MEDGEN ( [facility] , ) Inhaled oxygen 98 % 98 % MEDGEN ([facility], ) Diastolic blood 70 mm[Hg] 70 mm[Hg] MEDGEN (S t pressure [facility] , ) Systolic blood 110 mm[Hg] 110 mm[Hg] MEDGEN ([facility] , ) Heart rate 86 /min 86 /min MEDGEN ([facility] , ) Respiratory rate 12 /min 12 /min MEDGEN ( [facility] , ) Body temperature 98.1 F 98.1 F MEDGEN ( [facility] , ) Inhaled oxygen 98 % 98 % MEDGEN ( concentration [facility], ) Diastolic blood 70 mm[Hg] 70 mm[Hg] MEDGEN (S t pressure [facility] , ) Systolic blood 110 mm[Hg] 110 mm[Hg] MEDGEN ([facility] , ) Heart rate 85 /min 85 /min MEDGEN ([facility] , ) Respiratory rate 12 /min 12 /min MEDGEN ( [facility] , ) Body temperature 98.1 F 98.1 F MEDGEN ( [facility] , ) Inhaled oxygen 97 % 97 % MEDGEN ( concentration [facility], ) Diastolic blood 80 mm[Hg] 80 mm[Hg] MEDGEN (S t pressure [facility] , ) Systolic blood 130 mm[Hg] 130 mm[Hg] MEDGEN (St pressure [facility] , ) Heart rate 85 /min 85 /min MEDGEN ([facility] , ) Respiratory rate 12 /min 12 /min MEDGEN ( [facility] , ) Body temperature 98.1 F 98.1 F MEDGEN ( [facility]) Inhaled oxygen 97 % 97 % MEDGEN ([facility], ) Diastolic blood 80 mm[Hg] 80 mm[Hg] MEDGEN (S t pressure [facility] , ) Systolic blood 130 mm[Hg] 130 mm[Hg] MEDGEN ([facility] , ) Heart rate 85 /min 85 /min MEDGEN ([facility] , ) Respiratory rate 12 /min 12 /min MEDGEN ( [facility] , ) Body temperature 98.1 F 98.1 F MEDGEN ( [facility]) Inhaled oxygen 97 % 97 % MEDGEN ([facility], ) Diastolic blood 80 mm[Hg] 80 mm[Hg] MEDGEN (S t pressure [facility] , ) Systolic blood 130 mm[Hg] 130 mm[Hg] MEDGEN ([facility] , ) Heart rate 99 /min 99 /min MEDGEN ([facility] , ) Respiratory rate 15 /min 15 /min MEDGEN ( [facility]) Inhaled oxygen 99 % 99 % MEDGEN ([facility], ) Body mass index 27.1 kg/m2 27.1 kg/m2 MEDGEN (S t (BMI) [Ratio] [facility], ) Diastolic blood 70 mm[Hg] 70 mm[Hg] MEDGEN (S t pressure [facility] , ) Systolic blood 120 mm[Hg] 120 mm[Hg] MEDGEN ([facility] , ) Body weight 194 lb 194 lb MEDGEN ([facility]) Body height 71 in 71 in MEDGEN ([facility]) Heart rate 99 /min 99 /min MEDGEN ([facility]) Respiratory rate 15 /min 15 /min MEDGEN ( [facility]) Inhaled oxygen 99 % 99 % MEDGEN ([facility], ) Body mass index 27.1 kg/m2 27.1 kg/m2 MEDGEN (S t (BMI) [Ratio] [facility], ) Diastolic blood 70 mm[Hg] 70 mm[Hg] MEDGEN (S [facility]) Systolic blood 120 mm[Hg] 120 mm[Hg] MEDGEN ([facility]) Body weight 194 lb 194 lb MEDGEN ([facility]) Body height 71 in 71 in MEDGEN ([facility]) Heart rate 99 /min 99 /min MEDGEN ([facility]) Respiratory rate 15 /min 15 /min MEDGEN ( [facility]) Inhaled oxygen 99 % 99 % MEDGEN ([facility]) Body mass index 27.1 kg/m2 27.1 kg/m2 MEDGEN (S t (BMI) [Ratio] [facility], ) Diastolic blood 70 mm[Hg] 70 mm[Hg] MEDGEN ([facility]) Systolic blood 120 mm[Hg] 120 mm[Hg] MEDGEN ([facility]) Body weight 194 lb 194 lb MEDGEN ([facility]) Body height 71 in 71 in MEDGEN ([facility]) Body weight 194 lb 194 lb MEDGEN ([facility]) Body height 71 in 71 in MEDGEN ([facility]) Heart rate 99 /min 99 /min MEDGEN ([facility]) Respiratory rate 15 /min 15 /min MEDGEN ( [facility]) Inhaled oxygen 99 % 99 % MEDGEN ([facility]) Body mass index 27.1 kg/m2 27.1 kg/m2 MEDGEN (S t (BMI) [Ratio] [facility], ) Diastolic blood 70 mm[Hg] 70 mm[Hg] MEDGEN ([facility]) Systolic blood 120 mm[Hg] 120 mm[Hg] MEDGEN ([facility]) Heart rate 99 /min 99 /min MEDGEN ([facility]) Respiratory rate 15 /min 15 /min MEDGEN ( [facility]) Inhaled oxygen 99 % 99 % MEDGEN ([facility]) Body mass index 27.1 kg/m2 27.1 kg/m2 MEDGEN (S t (BMI) [Ratio] [facility]) Diastolic blood 70 mm[Hg] 70 mm[Hg] MEDGEN (S [facility]) Systolic blood 120 mm[Hg] 120 mm[Hg] MEDGEN ([facility]) Body weight 194 lb 194 lb MEDGEN ([facility]) Body height 71 in 71 in MEDGEN ([facility]) Diastolic blood 70 mm[Hg] 70 mm[Hg] MEDGEN ([facility]) Systolic blood 138 mm[Hg] 138 mm[Hg] MEDGEN ([facility]) Body weight 190 lb 190 lb MEDGEN ([facility]) Diastolic blood 70 mm[Hg] 70 mm[Hg] MEDGEN ([facility]) Systolic blood 138 mm[Hg] 138 mm[Hg] MEDGEN ([facility]) Body weight 190 lb 190 lb MEDGEN ([facility]) Diastolic blood 70 mm[Hg] 70 mm[Hg] MEDGEN ([facility]) Systolic blood 138 mm[Hg] 138 mm[Hg] MEDGEN ([facility]) Body weight 190 lb 190 lb MEDGEN ([facility]) Diastolic blood 70 mm[Hg] 70 mm[Hg] MEDGEN (S t [facility]) Systolic blood 138 mm[Hg] 138 mm[Hg] MEDGEN ([facility]) Body weight 190 lb 190 lb MEDGEN ([facility]) Diastolic blood 70 mm[Hg] 70 mm[Hg] MEDGEN ([facility]) Systolic blood 138 mm[Hg] 138 mm[Hg] MEDGEN ([facility]) Body weight 190 lb 190 lb MEDGEN ([facility]) Heart rate 102 /min 102 /min MEDGEN ([facility]) Respiratory rate 20 /min 20 /min MEDGEN ( [facility]) Diastolic blood 90 mm[Hg] 90 mm[Hg] MEDGEN (S t pressure [facility]) Systolic blood 134 mm[Hg] 134 mm[Hg] MEDGEN (St pressure [facility] , ) Heart rate 102 /min 102 /min MEDGEN ([facility]) Respiratory rate 20 /min 20 /min MEDGEN ( [facility] , ) Diastolic blood 90 mm[Hg] 90 mm[Hg] MEDGEN (S t pressure [facility]) Systolic blood 134 mm[Hg] 134 mm[Hg] MEDGEN (St pressure [facility] , ) Heart rate 102 /min 102 /min MEDGEN ([facility] , ) Respiratory rate 20 /min 20 /min MEDGEN ( [facility] , ) Diastolic blood 90 mm[Hg] 90 mm[Hg] MEDGEN (S t pressure [facility]) Systolic blood 134 mm[Hg] 134 mm[Hg] MEDGEN (St pressure [facility] , ) Heart rate 102 /min 102 /min [facility] ([facility]) Heart rate 102 /min 102 /min MEDGEN ([facility] , ) Respiratory rate 20 /min 20 /min MEDGEN ( [facility] , ) Diastolic blood 90 mm[Hg] 90 mm[Hg] MEDGEN (S t pressure [facility]) Systolic blood 134 mm[Hg] 134 mm[Hg] MEDGEN (St pressure [facility] , ) Respiratory rate 20 /min 20 /min MEDGEN ( [facility] , ) Diastolic blood 90 mm[Hg] 90 mm[Hg] MEDGEN (S t pressure [facility]) Systolic blood 134 mm[Hg] 134 mm[Hg] MEDGEN (St pressure [facility] , ) Heart rate 98 /min 98 /min MEDGEN ([facility] , ) Respiratory rate 22 /min 22 /min MEDGEN ( [facility] , ) Diastolic blood 80 mm[Hg] 80 mm[Hg] MEDGEN (S t pressure [facility]) Systolic blood 142 mm[Hg] 142 mm[Hg] MEDGEN (St pressure [facility] , ) Heart rate 98 /min 98 /min MEDGEN ([facility] , ) Respiratory rate 22 /min 22 /min MEDGEN ( [facility] , ) Diastolic blood 80 mm[Hg] 80 mm[Hg] MEDGEN (S t pressure [facility] , ) Systolic blood 142 mm[Hg] 142 mm[Hg] MEDGEN ([facility] , ) Heart rate 98 /min 98 /min MEDGEN ([facility] , ) Respiratory rate 22 /min 22 /min MEDGEN ( [facility] , ) Diastolic blood 80 mm[Hg] 80 mm[Hg] MEDGEN (S t pressure [facility] , ) Systolic blood 142 mm[Hg] 142 mm[Hg] MEDGEN ([facility] , ) Heart rate 98 /min 98 /min MEDGEN ([facility] , ) Respiratory rate 22 /min 22 /min MEDGEN ( [facility] , ) Diastolic blood 80 mm[Hg] 80 mm[Hg] MEDGEN (S t pressure [facility] , ) Systolic blood 142 mm[Hg] 142 mm[Hg] MEDGEN ([facility] , ) Heart rate 98 /min 98 /min MEDGEN ([facility] , ) Respiratory rate 22 /min 22 /min MEDGEN ( [facility] , ) Diastolic blood 80 mm[Hg] 80 mm[Hg] MEDGEN (S t pressure [facility] , ) Systolic blood 142 mm[Hg] 142 mm[Hg] MEDGEN ([facility] , ) Heart rate 77 /min 77 /min MEDGEN ([facility] , ) Respiratory rate 16 /min 16 /min MEDGEN ( [facility] , ) Inhaled oxygen 97 % 97 % MEDGEN ([facility], ) Body mass index 27.3 kg/m2 27.3 kg/m2 MEDGEN (S t (BMI) [Ratio] [facility], ) Diastolic blood 64 mm[Hg] 64 mm[Hg] MEDGEN (S t pressure [facility] , ) Systolic blood 110 mm[Hg] 110 mm[Hg] MEDGEN ([facility] , ) Body weight 196 lb 196 lb MEDGEN ([facility] , ) Body height 71 in 71 in MEDGEN ([facility]) Heart rate 77 /min 77 /min MEDGEN ([facility]) Respiratory rate 16 /min 16 /min MEDGEN ( [facility]) Inhaled oxygen 97 % 97 % MEDGEN ([facility]) Body mass index 27.3 kg/m2 27.3 kg/m2 MEDGEN (S t (BMI) [Ratio] [facility], ) Diastolic blood 64 mm[Hg] 64 mm[Hg] MEDGEN (S t pressure [facility]) Systolic blood 110 mm[Hg] 110 mm[Hg] MEDGEN ([facility]) Body weight 196 lb 196 lb MEDGEN ([facility]) Body height 71 in 71 in MEDGEN ([facility]) Body weight 196 lb 196 lb MEDGEN ([facility]) Body height 71 in 71 in MEDGEN ([facility]) Heart rate 77 /min 77 /min MEDGEN ([facility]) Respiratory rate 16 /min 16 /min MEDGEN ( [facility]) Inhaled oxygen 97 % 97 % MEDGEN ([facility]) Body mass index 27.3 kg/m2 27.3 kg/m2 MEDGEN (S t (BMI) [Ratio] [facility], ) Diastolic blood 64 mm[Hg] 64 mm[Hg] MEDGEN (S t pressure [facility]) Systolic blood 110 mm[Hg] 110 mm[Hg] MEDGEN ([facility]) Body weight 196 lb 196 lb MEDGEN ([facility]) Body height 71 in 71 in MEDGEN ([facility]) Heart rate 77 /min 77 /min MEDGEN ([facility]) Respiratory rate 16 /min 16 /min MEDGEN ( [facility]) Inhaled oxygen 97 % 97 % MEDGEN ([facility]) Body mass index 27.3 kg/m2 27.3 kg/m2 MEDGEN (S t (BMI) [Ratio] [facility], ) Diastolic blood 64 mm[Hg] 64 mm[Hg] MEDGEN (S t pressure [facility]) Systolic blood 110 mm[Hg] 110 mm[Hg] MEDGEN ([facility]) Body weight 196 lb 196 lb MEDGEN ([facility]) Body height 71 in 71 in MEDGEN ([facility]) Heart rate 77 /min 77 /min MEDGEN ([facility]) Respiratory rate 16 /min 16 /min MEDGEN ( [facility]) Inhaled oxygen 97 % 97 % MEDGEN ([facility], ) Body mass index 27.3 kg/m2 27.3 kg/m2 MEDGEN (S t (BMI) [Ratio] [facility], ) Diastolic blood 64 mm[Hg] 64 mm[Hg] MEDGEN (S t pressure [facility]) Systolic blood 110 mm[Hg] 110 mm[Hg] MEDGEN ([facility]) Heart rate 88 /min 88 /min MEDGEN ([facility]) Respiratory rate 16 /min 16 /min MEDGEN ( [facility]) Body temperature 98.2 F 98.2 F MEDGEN ( [facility]) Body mass index 27.8 kg/m2 27.8 kg/m2 MEDGEN (S t (BMI) [Ratio] [facility], ) Diastolic blood 72 mm[Hg] 72 mm[Hg] MEDGEN (S t pressure [facility]) Systolic blood 150 mm[Hg] 150 mm[Hg] MEDGEN ([facility]) Body weight 195 lb 195 lb MEDGEN ([facility]) Body height 70.25 in 70.25 in MEDGEN ([facility]) Heart rate 88 /min 88 /min MEDGEN ([facility]) Respiratory rate 16 /min 16 /min MEDGEN ( [facility]) Body temperature 98.2 F 98.2 F MEDGEN ( [facility]) Body mass index 27.8 kg/m2 27.8 kg/m2 MEDGEN (S t (BMI) [Ratio] [facility], ) Diastolic blood 72 mm[Hg] 72 mm[Hg] MEDGEN (S t pressure [facility]) Systolic blood 150 mm[Hg] 150 mm[Hg] MEDGEN (St pressure [facility] , ) Body weight 195 lb 195 lb MEDGEN ([facility]) Body height 70.25 in 70.25 in MEDGEN ([facility]) Heart rate 88 /min 88 /min MEDGEN ([facility] , ) Respiratory rate 16 /min 16 /min MEDGEN ( [facility] [place] , ) Body temperature 98.2 F 98.2 F MEDGEN ( [facility]) Body mass index 27.8 kg/m2 27.8 kg/m2 MEDGEN (S t (BMI) [Ratio] [facility], ) Diastolic blood 72 mm[Hg] 72 mm[Hg] MEDGEN (S t pressure [facility]) Systolic blood 150 mm[Hg] 150 mm[Hg] MEDGEN (St pressure [facility] , ) Body weight 195 lb 195 lb MEDGEN ([facility]) Body height 70.25 in 70.25 in MEDGEN ([facility]) Heart rate 88 /min 88 /min MEDGEN ([facility]) Respiratory rate 16 /min 16 /min MEDGEN ( [facility]) Body temperature 98.2 F 98.2 F MEDGEN ( [facility]) Body mass index 27.8 kg/m2 27.8 kg/m2 MEDGEN (S t (BMI) [Ratio] [facility], ) Diastolic blood 72 mm[Hg] 72 mm[Hg] MEDGEN (S t pressure [facility]) Systolic blood 150 mm[Hg] 150 mm[Hg] MEDGEN (St pressure [facility] , ) Body weight 195 lb 195 lb MEDGEN ([facility]) Body height 70.25 in 70.25 in MEDGEN ([facility]) Heart rate 88 /min 88 /min MEDGEN ([facility]) Respiratory rate 16 /min 16 /min MEDGEN ( [facility]) Body temperature 98.2 F 98.2 F MEDGEN ( [facility]) Body mass index 27.8 kg/m2 27.8 kg/m2 MEDGEN (S t (BMI) [Ratio] [facility], ) Diastolic blood 72 mm[Hg] 72 mm[Hg] MEDGEN (S t pressure [facility]) Systolic blood 150 mm[Hg] 150 mm[Hg] MEDGEN ([facility]) Body weight 195 lb 195 lb MEDGEN ([facility]) Body height 70.25 in 70.25 in MEDGEN ([facility]) Heart rate 99 /min 99 /min MEDGEN ([facility]) Respiratory rate 18 /min 18 /min MEDGEN ( [facility]) Body temperature 97.8 F 97.8 F MEDGEN ( [facility]) Inhaled oxygen 94 % 94 % MEDGEN ([facility], ) Body mass index 27.8 kg/m2 27.8 kg/m2 MEDGEN (S t (BMI) [Ratio] [facility], ) Diastolic blood 64 mm[Hg] 64 mm[Hg] MEDGEN (S t pressure [facility]) Systolic blood 136 mm[Hg] 136 mm[Hg] MEDGEN ([facility]) Body weight 195 lb 195 lb MEDGEN ([facility]) Body height 70.25 in 70.25 in MEDGEN ([facility]) Heart rate 99 /min 99 /min MEDGEN ([facility]) Respiratory rate 18 /min 18 /min MEDGEN ( [facility]) Body temperature 97.8 F 97.8 F MEDGEN ( [facility]) Inhaled oxygen 94 % 94 % MEDGEN ([facility]) Body mass index 27.8 kg/m2 27.8 kg/m2 MEDGEN (S t (BMI) [Ratio] [facility], ) Diastolic blood 64 mm[Hg] 64 mm[Hg] MEDGEN (S t pressure [facility]) Systolic blood 136 mm[Hg] 136 mm[Hg] MEDGEN ([facility]) Body weight 195 lb 195 lb MEDGEN ([facility]) Body height 70.25 in 70.25 in MEDGEN ([facility]) Heart rate 99 /min 99 /min MEDGEN ([facility]) Respiratory rate 18 /min 18 /min MEDGEN ( [facility]) Body temperature 97.8 F 97.8 F MEDGEN ( [facility]) Inhaled oxygen 94 % 94 % MEDGEN ([facility], ) Body mass index 27.8 kg/m2 27.8 kg/m2 MEDGEN (S t (BMI) [Ratio] [facility], ) Diastolic blood 64 mm[Hg] 64 mm[Hg] MEDGEN (S [facility]) Systolic blood 136 mm[Hg] 136 mm[Hg] MEDGEN ([facility]) Body weight 195 lb 195 lb MEDGEN ([facility]) Body height 70.25 in 70.25 in MEDGEN ([facility]) Heart rate 99 /min 99 /min MEDGEN ([facility]) Respiratory rate 18 /min 18 /min MEDGEN ( [facility]) Body temperature 97.8 F 97.8 F MEDGEN ( [facility]) Inhaled oxygen 94 % 94 % MEDGEN ([facility]) Body mass index 27.8 kg/m2 27.8 kg/m2 MEDGEN (S t (BMI) [Ratio] [facility]) Diastolic blood 64 mm[Hg] 64 mm[Hg] MEDGEN (S [facility]) Systolic blood 136 mm[Hg] 136 mm[Hg] MEDGEN ([facility]) Body weight 195 lb 195 lb MEDGEN ([facility]) Body height 70.25 in 70.25 in MEDGEN ([facility]) Heart rate 99 /min 99 /min MEDGEN ([facility]) Respiratory rate 18 /min 18 /min MEDGEN ( [facility]) Body temperature 97.8 F 97.8 F MEDGEN ( [facility]) Inhaled oxygen 94 % 94 % MEDGEN ([facility], ) Body mass index 27.8 kg/m2 27.8 kg/m2 MEDGEN (S t (BMI) [Ratio] [facility], ) Diastolic blood 64 mm[Hg] 64 mm[Hg] MEDGEN (S t pressure [facility]) Systolic blood 136 mm[Hg] 136 mm[Hg] MEDGEN ([facility]) Body weight 195 lb 195 lb MEDGEN ([facility]) Body height 70.25 in 70.25 in MEDGEN ([facility]) Heart rate 83 /min 83 /min MEDGEN ([facility]) Respiratory rate 18 /min 18 /min MEDGEN ( [facility]) Body temperature 97.5 F 97.5 F MEDGEN ( [facility]) Inhaled oxygen 93 % 93 % MEDGEN ([facility], ) Body mass index 27.8 kg/m2 27.8 kg/m2 MEDGEN (S t (BMI) [Ratio] [facility], ) Diastolic blood 60 mm[Hg] 60 mm[Hg] MEDGEN (S t [facility]) Systolic blood 144 mm[Hg] 144 mm[Hg] MEDGEN ([facility]) Body weight 195 lb 195 lb MEDGEN ([facility]) Body height 70.25 in 70.25 in MEDGEN ([facility]) Heart rate 83 /min 83 /min MEDGEN ([facility]) Respiratory rate 18 /min 18 /min MEDGEN ( [facility]) Body temperature 97.5 F 97.5 F MEDGEN ( [facility]) Inhaled oxygen 93 % 93 % MEDGEN ([facility], ) Body mass index 27.8 kg/m2 27.8 kg/m2 MEDGEN (S t (BMI) [Ratio] [facility], ) Diastolic blood 60 mm[Hg] 60 mm[Hg] MEDGEN (S t pressure [facility] , ) Systolic blood 144 mm[Hg] 144 mm[Hg] MEDGEN ([facility]) Body weight 195 lb 195 lb MEDGEN ([facility]) Body height 70.25 in 70.25 in MEDGEN ([facility]) Heart rate 83 /min 83 /min MEDGEN ([facility]) Respiratory rate 18 /min 18 /min MEDGEN ( [facility]) Body temperature 97.5 F 97.5 F MEDGEN ( [facility]) Inhaled oxygen 93 % 93 % MEDGEN ([facility]) Body mass index 27.8 kg/m2 27.8 kg/m2 MEDGEN (S t (BMI) [Ratio] [facility]) Diastolic blood 60 mm[Hg] 60 mm[Hg] MEDGEN (S t [facility]) Systolic blood 144 mm[Hg] 144 mm[Hg] MEDGEN ([facility]) Body weight 195 lb 195 lb MEDGEN ([facility]) Body height 70.25 in 70.25 in MEDGEN ([facility]) Heart rate 83 /min 83 /min MEDGEN ([facility]) Respiratory rate 18 /min 18 /min MEDGEN ( [facility]) Body temperature 97.5 F 97.5 F MEDGEN ( [facility]) Inhaled oxygen 93 % 93 % MEDGEN ([facility]) Body mass index 27.8 kg/m2 27.8 kg/m2 MEDGEN (S t (BMI) [Ratio] [facility]) Diastolic blood 60 mm[Hg] 60 mm[Hg] MEDGEN (S pressure [facility]) Systolic blood 144 mm[Hg] 144 mm[Hg] MEDGEN ([facility]) Body weight 195 lb 195 lb MEDGEN ([facility]) Body height 70.25 in 70.25 in MEDGEN ([facility]) Heart rate 83 /min 83 /min MEDGEN ([facility]) Respiratory rate 18 /min 18 /min MEDGEN ( [facility]) Body temperature 97.5 F 97.5 F MEDGEN ( [facility]) Inhaled oxygen 93 % 93 % MEDGEN ([facility]) Body mass index 27.8 kg/m2 27.8 kg/m2 MEDGEN (S t (BMI) [Ratio] [facility]an, ) Diastolic blood 60 mm[Hg] 60 mm[Hg] MEDGEN (S t pressure [facility]) Systolic blood 144 mm[Hg] 144 mm[Hg] MEDGEN ([facility]) Body weight 195 lb 195 lb MEDGEN ([facility]) Body height 70.25 in 70.25 in MEDGEN ([facility]) Heart rate 72 /min 72 /min MEDGEN ([facility]) Respiratory rate 16 /min 16 /min MEDGEN ( [facility]) Body temperature 98.1 F 98.1 F MEDGEN ( [facility]) Inhaled oxygen 95 % 95 % MEDGEN ([facility], ) Body mass index 27.9 kg/m2 27.9 kg/m2 MEDGEN (S t (BMI) [Ratio] [facility], ) Diastolic blood 60 mm[Hg] 60 mm[Hg] MEDGEN (S t [facility]) Systolic blood 122 mm[Hg] 122 mm[Hg] MEDGEN ([facility]) Body weight 196 lb 196 lb MEDGEN ([facility]) Body height 70.25 in 70.25 in MEDGEN ([facility]) Heart rate 72 /min 72 /min MEDGEN ([facility]) Respiratory rate 16 /min 16 /min MEDGEN ( [facility]) Body temperature 98.1 F 98.1 F MEDGEN ( [facility]) Inhaled oxygen 95 % 95 % MEDGEN ([facility], ) Body mass index 27.9 kg/m2 27.9 kg/m2 MEDGEN (S t (BMI) [Ratio] [facility], ) Diastolic blood 60 mm[Hg] 60 mm[Hg] MEDGEN (S t pressure [facility]) Systolic blood 122 mm[Hg] 122 mm[Hg] MEDGEN ([facility]) Body weight 196 lb 196 lb MEDGEN ([facility]) Body height 70.25 in 70.25 in MEDGEN ([facility]) Heart rate 72 /min 72 /min MEDGEN ([facility]) Respiratory rate 16 /min 16 /min MEDGEN ( [facility]) Body temperature 98.1 F 98.1 F MEDGEN ( [facility]) Inhaled oxygen 95 % 95 % MEDGEN ([facility]) Body mass index 27.9 kg/m2 27.9 kg/m2 MEDGEN (S t (BMI) [Ratio] [facility], ) Diastolic blood 60 mm[Hg] 60 mm[Hg] MEDGEN (S t pressure [facility]) Systolic blood 122 mm[Hg] 122 mm[Hg] MEDGEN ([facility]) Body weight 196 lb 196 lb MEDGEN ([facility]) Body height 70.25 in 70.25 in MEDGEN ([facility]) Heart rate 72 /min 72 /min MEDGEN ([facility]) Respiratory rate 16 /min 16 /min MEDGEN ( [facility]) Body temperature 98.1 F 98.1 F MEDGEN ( [facility]) Inhaled oxygen 95 % 95 % MEDGEN ([facility], ) Body mass index 27.9 kg/m2 27.9 kg/m2 MEDGEN (S t (BMI) [Ratio] [facility], ) Diastolic blood 60 mm[Hg] 60 mm[Hg] MEDGEN (S t pressure [facility]) Systolic blood 122 mm[Hg] 122 mm[Hg] MEDGEN ([facility]) Body weight 196 lb 196 lb MEDGEN ([facility]) Body height 70.25 in 70.25 in MEDGEN ([facility]) Heart rate 72 /min 72 /min MEDGEN ([facility]) Respiratory rate 16 /min 16 /min MEDGEN ( [facility]) Body temperature 98.1 F 98.1 F MEDGEN ( [facility]) Inhaled oxygen 95 % 95 % MEDGEN ([facility], ) Body mass index 27.9 kg/m2 27.9 kg/m2 MEDGEN (S t (BMI) [Ratio] [facility]) Diastolic blood 60 mm[Hg] 60 mm[Hg] MEDGEN (S t pressure [facility]) Systolic blood 122 mm[Hg] 122 mm[Hg] MEDGEN ([facility]) Body weight 196 lb 196 lb MEDGEN ([facility]) Body height 70.25 in 70.25 in MEDGEN ([facility]) Heart rate 81 /min 81 /min MEDGEN ([facility]) Respiratory rate 14 /min 14 /min MEDGEN ( [facility]) Body temperature 98.8 F 98.8 F MEDGEN ( [facility]) Inhaled oxygen 98 % 98 % MEDGEN ([facility]) Body mass index 28.3 kg/m2 28.3 kg/m2 MEDGEN (S t (BMI) [Ratio] [facility]) Diastolic blood 72 mm[Hg] 72 mm[Hg] MEDGEN (S t [facility]) Systolic blood 126 mm[Hg] 126 mm[Hg] MEDGEN ([facility]) Body weight 199 lb 199 lb MEDGEN ([facility]) Body height 70.25 in 70.25 in MEDGEN ([facility]) Heart rate 81 /min 81 /min MEDGEN ([facility]) Respiratory rate 14 /min 14 /min MEDGEN ( [facility]) Body temperature 98.8 F 98.8 F MEDGEN ( [facility]) Inhaled oxygen 98 % 98 % MEDGEN ([facility]) Body mass index 28.3 kg/m2 28.3 kg/m2 MEDGEN (S t (BMI) [Ratio] [facility]) Diastolic blood 72 mm[Hg] 72 mm[Hg] MEDGEN (S t [facility]) Systolic blood 126 mm[Hg] 126 mm[Hg] MEDGEN ([facility]) Body weight 199 lb 199 lb MEDGEN ([facility]) Body height 70.25 in 70.25 in MEDGEN ([facility]) Heart rate 81 /min 81 /min MEDGEN ([facility]) Respiratory rate 14 /min 14 /min MEDGEN ( [facility]) Body temperature 98.8 F 98.8 F MEDGEN ( [facility]) Inhaled oxygen 98 % 98 % MEDGEN ([facility]) Body mass index 28.3 kg/m2 28.3 kg/m2 MEDGEN (S t (BMI) [Ratio] [facility]) Diastolic blood 72 mm[Hg] 72 mm[Hg] MEDGEN (S t pressure [facility]) Systolic blood 126 mm[Hg] 126 mm[Hg] MEDGEN ([facility]) Body weight 199 lb 199 lb MEDGEN ([facility]) Body height 70.25 in 70.25 in MEDGEN ([facility]) Heart rate 81 /min 81 /min MEDGEN ([facility]) Respiratory rate 14 /min 14 /min MEDGEN ( [facility]) Body temperature 98.8 F 98.8 F MEDGEN ( [facility]) Inhaled oxygen 98 % 98 % MEDGEN ([facility]) Body mass index 28.3 kg/m2 28.3 kg/m2 MEDGEN (S t (BMI) [Ratio] [facility]) Diastolic blood 72 mm[Hg] 72 mm[Hg] MEDGEN (S pressure [facility]) Systolic blood 126 mm[Hg] 126 mm[Hg] MEDGEN ([facility]) Body weight 199 lb 199 lb MEDGEN ([facility]) Body height 70.25 in 70.25 in MEDGEN ([facility]) Heart rate 81 /min 81 /min MEDGEN ([facility]) Respiratory rate 14 /min 14 /min MEDGEN ( [facility]) Body temperature 98.8 F 98.8 F MEDGEN ( [facility]) Inhaled oxygen 98 % 98 % MEDGEN ([facility]) Body mass index 28.3 kg/m2 28.3 kg/m2 MEDGEN (S t (BMI) [Ratio] [facility]) Diastolic blood 72 mm[Hg] 72 mm[Hg] MEDGEN (S t pressure [facility] , ) Systolic blood 126 mm[Hg] 126 mm[Hg] MEDGEN ([facility] , ) Body weight 199 lb 199 lb MEDGEN ([facility] [place] , ) Body height 70.25 in 70.25 in MEDGEN ([facility] [place] , ) Heart rate 74 /min 74 /min MEDGEN ([facility] [place] , ) Respiratory rate 16 /min 16 /min MEDGEN ( [facility] [place] , ) Body temperature 98.3 F 98.3 F MEDGEN ( [facility] [place] , ) Inhaled oxygen 95 % 95 % MEDGEN ([facility], ) Body mass index 28.8 kg/m2 28.8 kg/m2 MEDGEN (S t (BMI) [Ratio] [facility], ) Diastolic blood 66 mm[Hg] 66 mm[Hg] MEDGEN (S t pressure [facility] , ) Systolic blood 135 mm[Hg] 135 mm[Hg] MEDGEN ([facility] , ) Body weight 202 lb 202 lb MEDGEN ([facility] [place] , ) Body height 70.25 in 70.25 in MEDGEN ([facility] [place] , ) Heart rate 74 /min 74 /min MEDGEN ([facility] , ) Respiratory rate 16 /min 16 /min MEDGEN ( [facility] [place] , ) Body temperature 98.3 F 98.3 F MEDGEN ( [facility] [place] , ) Inhaled oxygen 95 % 95 % MEDGEN ([facility], ) Body mass index 28.8 kg/m2 28.8 kg/m2 MEDGEN (S t (BMI) [Ratio] [facility], ) Diastolic blood 66 mm[Hg] 66 mm[Hg] MEDGEN (S t pressure [facility] , ) Systolic blood 135 mm[Hg] 135 mm[Hg] MEDGEN ([facility] , ) Body weight 202 lb 202 lb MEDGEN ([facility] [place] , ) Body height 70.25 in 70.25 in MEDGEN ([facility] [place] , ) Heart rate 74 /min 74 /min MEDGEN ([facility]) Respiratory rate 16 /min 16 /min MEDGEN ( [facility]) Body temperature 98.3 F 98.3 F MEDGEN ( [facility]) Inhaled oxygen 95 % 95 % MEDGEN ([facility], ) Body mass index 28.8 kg/m2 28.8 kg/m2 MEDGEN (S t (BMI) [Ratio] [facility], ) Diastolic blood 66 mm[Hg] 66 mm[Hg] MEDGEN (S t pressure [facility]) Systolic blood 135 mm[Hg] 135 mm[Hg] MEDGEN ([facility]) Body weight 202 lb 202 lb MEDGEN ([facility]) Body height 70.25 in 70.25 in MEDGEN ([facility]) Heart rate 74 /min 74 /min MEDGEN ([facility]) Respiratory rate 16 /min 16 /min MEDGEN ( [facility]) Body temperature 98.3 F 98.3 F MEDGEN ( [facility]) Inhaled oxygen 95 % 95 % MEDGEN ([facility], ) Body mass index 28.8 kg/m2 28.8 kg/m2 MEDGEN (S t (BMI) [Ratio] [facility], ) Diastolic blood 66 mm[Hg] 66 mm[Hg] MEDGEN (S t pressure [facility]) Systolic blood 135 mm[Hg] 135 mm[Hg] MEDGEN ([facility]) Body weight 202 lb 202 lb MEDGEN ([facility]) Body height 70.25 in 70.25 in MEDGEN ([facility]) Heart rate 74 /min 74 /min MEDGEN ([facility]) Respiratory rate 16 /min 16 /min MEDGEN ( [facility]) Body temperature 98.3 F 98.3 F MEDGEN ( [facility]) Inhaled oxygen 95 % 95 % MEDGEN ([facility]) Body mass index 28.8 kg/m2 28.8 kg/m2 MEDGEN (S t (BMI) [Ratio] [facility], ) Diastolic blood 66 mm[Hg] 66 mm[Hg] MEDGEN (S t pressure [facility] , ) Systolic blood 135 mm[Hg] 135 mm[Hg] MEDGEN (St pressure [facility] , ) Body weight 202 lb 202 lb MEDGEN ([facility] , ) Body height 70.25 in 70.25 in MEDGEN ([facility] [place] , ) Heart rate 88 /min 88 /min MEDGEN ([facility] , ) Respiratory rate 17 /min 17 /min MEDGEN ( [facility] , ) Body temperature 97.9 F 97.9 F MEDGEN ( [facility] , ) Body mass index 27.9 kg/m2 27.9 kg/m2 MEDGEN (S t (BMI) [Ratio] [facility], ) Diastolic blood 53 mm[Hg] 53 mm[Hg] MEDGEN (S t pressure [facility] , ) Systolic blood 108 mm[Hg] 108 mm[Hg] MEDGEN ([facility] , ) Body weight 196 lb 196 lb MEDGEN ([facility] , ) Body height 70.25 in 70.25 in MEDGEN ([facility] , ) Heart rate 88 /min 88 /min MEDGEN ([facility] , ) Respiratory rate 17 /min 17 /min MEDGEN ( [facility] , ) Body temperature 97.9 F 97.9 F MEDGEN ( [facility] , ) Body mass index 27.9 kg/m2 27.9 kg/m2 MEDGEN (S t (BMI) [Ratio] [facility], ) Diastolic blood 53 mm[Hg] 53 mm[Hg] MEDGEN (S t pressure [facility] , ) Systolic blood 108 mm[Hg] 108 mm[Hg] MEDGEN (St pressure [facility] , ) Body weight 196 lb 196 lb MEDGEN ([place] , ) Body height 70.25 in 70.25 in MEDGEN ([facility] , ) Heart rate 88 /min 88 /min MEDGEN ([facility] , ) Respiratory rate 17 /min 17 /min MEDGEN ( [place] , ) Body temperature 97.9 F 97.9 F MEDGEN ( [facility] , ) Body mass index 27.9 kg/m2 27.9 kg/m2 MEDGEN (S t (BMI) [Ratio] [facility], ) Diastolic blood 53 mm[Hg] 53 mm[Hg] MEDGEN (S t pressure [facility] , ) Systolic blood 108 mm[Hg] 108 mm[Hg] MEDGEN (St pressure [facility] , ) Body weight 196 lb 196 lb MEDGEN ([facility] [place] , ) Body height 70.25 in 70.25 in MEDGEN ([facility]) Heart rate 88 /min 88 /min MEDGEN ([facility] , ) Respiratory rate 17 /min 17 /min MEDGEN ( [facility] [place] , ) Body temperature 97.9 F 97.9 F MEDGEN ( [facility]) Body mass index 27.9 kg/m2 27.9 kg/m2 MEDGEN (S t (BMI) [Ratio] [facility], ) Diastolic blood 53 mm[Hg] 53 mm[Hg] MEDGEN (S t pressure [facility] , ) Systolic blood 108 mm[Hg] 108 mm[Hg] MEDGEN (St pressure [facility] , ) Body weight 196 lb 196 lb MEDGEN ([facility]) Body height 70.25 in 70.25 in MEDGEN ([facility] , ) Heart rate 88 /min 88 /min MEDGEN ([facility] , ) Respiratory rate 17 /min 17 /min MEDGEN ( [facility] , ) Body temperature 97.9 F 97.9 F MEDGEN ( [facility]) Body mass index 27.9 kg/m2 27.9 kg/m2 MEDGEN (S t (BMI) [Ratio] [facility], ) Diastolic blood 53 mm[Hg] 53 mm[Hg] MEDGEN (S t pressure [facility] , ) Systolic blood 108 mm[Hg] 108 mm[Hg] MEDGEN (St pressure [facility] , ) Body weight 196 lb 196 lb MEDGEN ([facility] , ) Body height 70.25 in 70.25 in MEDGEN ([facility]) Heart rate 85 /min 85 /min MEDGEN ([facility]) Body temperature 98.8 F 98.8 F MEDGEN ( [facility] , ) Inhaled oxygen 95 % 95 % MEDGEN ([facility], ) Heart rate 85 /min 85 /min MEDGEN ([facility] , ) Body temperature 98.8 F 98.8 F MEDGEN ( [facility] , ) Inhaled oxygen 95 % 95 % MEDGEN ([facility], ) Heart rate 85 /min 85 /min MEDGEN ([facility] , ) Body temperature 98.8 F 98.8 F MEDGEN ( [facility] , ) Inhaled oxygen 95 % 95 % MEDGEN ([facility], ) Heart rate 85 /min 85 /min MEDGEN ([facility] , ) Body temperature 98.8 F 98.8 F MEDGEN ( [facility] , ) Inhaled oxygen 95 % 95 % MEDGEN ([facility], ) Heart rate 85 /min 85 /min MEDGEN ([facility] , ) Body temperature 98.8 F 98.8 F MEDGEN ( [facility] , ) Inhaled oxygen 95 % 95 % MEDGEN ([facility], ) Heart rate 82 /min 82 /min MEDGEN ([facility] , ) Respiratory rate 16 /min 16 /min MEDGEN ( [facility]) Body temperature 99.1 F 99.1 F MEDGEN ( [facility] , ) Body mass index 28.3 kg/m2 28.3 kg/m2 MEDGEN (S t (BMI) [Ratio] [facility], ) Diastolic blood 76 mm[Hg] 76 mm[Hg] MEDGEN (S t pressure [facility]) Systolic blood 116 mm[Hg] 116 mm[Hg] MEDGEN ([facility] , ) Body weight 199 lb 199 lb MEDGEN ([facility]) Body height 70.25 in 70.25 in MEDGEN ([facility]) Heart rate 82 /min 82 /min MEDGEN ([facility]) Respiratory rate 16 /min 16 /min MEDGEN ( [facility]) Body temperature 99.1 F 99.1 F MEDGEN ( [facility] , ) Body mass index 28.3 kg/m2 28.3 kg/m2 MEDGEN (S t (BMI) [Ratio] [facility], ) Diastolic blood 76 mm[Hg] 76 mm[Hg] MEDGEN (S t pressure [facility] , ) Systolic blood 116 mm[Hg] 116 mm[Hg] MEDGEN ([facility] , ) Heart rate 82 /min 82 /min MEDGEN ([facility]) Respiratory rate 16 /min 16 /min MEDGEN ( [facility]) Body temperature 99.1 F 99.1 F MEDGEN ( [facility]) Body mass index 28.3 kg/m2 28.3 kg/m2 MEDGEN (S t (BMI) [Ratio] [facility], ) Diastolic blood 76 mm[Hg] 76 mm[Hg] MEDGEN (S t pressure [facility] , ) Systolic blood 116 mm[Hg] 116 mm[Hg] MEDGEN ([facility]) Body weight 199 lb 199 lb MEDGEN ([facility]) Body height 70.25 in 70.25 in MEDGEN ([facility]) Heart rate 82 /min 82 /min MEDGEN ([facility]) Respiratory rate 16 /min 16 /min MEDGEN ( [facility]) Body temperature 99.1 F 99.1 F MEDGEN ( [facility]) Body mass index 28.3 kg/m2 28.3 kg/m2 MEDGEN (S t (BMI) [Ratio] [facility], ) Diastolic blood 76 mm[Hg] 76 mm[Hg] MEDGEN (S t pressure [facility]) Systolic blood 116 mm[Hg] 116 mm[Hg] MEDGEN ([facility]) Body weight 199 lb 199 lb MEDGEN ([facility]) Body height 70.25 in 70.25 in MEDGEN ([facility]) Body weight 199 lb 199 lb MEDGEN ([facility]) Body height 70.25 in 70.25 in MEDGEN ([facility]) Heart rate 82 /min 82 /min MEDGEN ([facility] , ) Respiratory rate 16 /min 16 /min MEDGEN ( [facility]) Body temperature 99.1 F 99.1 F MEDGEN ( [facility]) Body mass index 28.3 kg/m2 28.3 kg/m2 MEDGEN (S t (BMI) [Ratio] [facility], ) Diastolic blood 76 mm[Hg] 76 mm[Hg] MEDGEN (S t pressure [facility]) Systolic blood 116 mm[Hg] 116 mm[Hg] MEDGEN ([facility]) Body weight 199 lb 199 lb MEDGEN ([facility]) Body height 70.25 in 70.25 in MEDGEN ([facility]) Heart rate 86 /min 86 /min MEDGEN ([facility]) Respiratory rate 16 /min 16 /min MEDGEN ( [facility]) Body temperature 97.9 F 97.9 F MEDGEN ( [facility]) Body mass index 27.9 kg/m2 27.9 kg/m2 MEDGEN (S t (BMI) [Ratio] [facility], ) Diastolic blood 63 mm[Hg] 63 mm[Hg] MEDGEN (S t pressure [facility]) Systolic blood 127 mm[Hg] 127 mm[Hg] MEDGEN ([facility]) Body weight 196 lb 196 lb MEDGEN ([facility]) Body height 70.25 in 70.25 in MEDGEN ([facility]) Heart rate 86 /min 86 /min MEDGEN ([facility]) Respiratory rate 16 /min 16 /min MEDGEN ( [facility]) Body temperature 97.9 F 97.9 F MEDGEN ( [facility]) Body mass index 27.9 kg/m2 27.9 kg/m2 MEDGEN (S t (BMI) [Ratio] [facility], ) Diastolic blood 63 mm[Hg] 63 mm[Hg] MEDGEN (S t pressure [facility]) Systolic blood 127 mm[Hg] 127 mm[Hg] MEDGEN ([facility]) Body weight 196 lb 196 lb MEDGEN ([facility]) Body height 70.25 in 70.25 in MEDGEN ([facility]) Heart rate 86 /min 86 /min MEDGEN ([facility]) Respiratory rate 16 /min 16 /min MEDGEN ( [facility]) Body temperature 97.9 F 97.9 F MEDGEN ( [facility]) Body mass index 27.9 kg/m2 27.9 kg/m2 MEDGEN (S t (BMI) [Ratio] [facility]) Diastolic blood 63 mm[Hg] 63 mm[Hg] MEDGEN (S [facility]) Systolic blood 127 mm[Hg] 127 mm[Hg] MEDGEN ([facility]) Body weight 196 lb 196 lb MEDGEN ([facility]) Body height 70.25 in 70.25 in MEDGEN ([facility]) Heart rate 86 /min 86 /min MEDGEN ([facility]) Respiratory rate 16 /min 16 /min MEDGEN ( [facility]) Body temperature 97.9 F 97.9 F MEDGEN ( [facility]) Body mass index 27.9 kg/m2 27.9 kg/m2 MEDGEN (S t (BMI) [Ratio] [facility]) Diastolic blood 63 mm[Hg] 63 mm[Hg] MEDGEN (S t pressure [facility]) Systolic blood 127 mm[Hg] 127 mm[Hg] MEDGEN ([facility]) Body weight 196 lb 196 lb MEDGEN ([facility]) Body height 70.25 in 70.25 in MEDGEN ([facility]) Heart rate 86 /min 86 /min MEDGEN ([facility]) Respiratory rate 16 /min 16 /min MEDGEN ( [facility]) Body temperature 97.9 F 97.9 F MEDGEN ( [facility]) Body mass index 27.9 kg/m2 27.9 kg/m2 MEDGEN (S t (BMI) [Ratio] [facility]) Diastolic blood 63 mm[Hg] 63 mm[Hg] MEDGEN (S t pressure [facility]) Systolic blood 127 mm[Hg] 127 mm[Hg] MEDGEN ([facility]) Body weight 196 lb 196 lb MEDGEN ([facility]) Body height 70.25 in 70.25 in MEDGEN ([facility]) Heart rate 84 /min 84 /min MEDGEN ([facility]) Respiratory rate 17 /min 17 /min MEDGEN ( [facility]) Body mass index 27.6 kg/m2 27.6 kg/m2 MEDGEN (S t (BMI) [Ratio] [facility], ) Diastolic blood 71 mm[Hg] 71 mm[Hg] MEDGEN (S t pressure [facility]) Systolic blood 103 mm[Hg] 103 mm[Hg] MEDGEN ([facility]) Body weight 194 lb 194 lb MEDGEN ([facility]) Body height 70.25 in 70.25 in MEDGEN ([facility]) Heart rate 84 /min 84 /min MEDGEN ([facility]) Respiratory rate 17 /min 17 /min MEDGEN ( [facility]) Body mass index 27.6 kg/m2 27.6 kg/m2 MEDGEN (S t (BMI) [Ratio] [facility], ) Diastolic blood 71 mm[Hg] 71 mm[Hg] MEDGEN (S t pressure [facility]) Systolic blood 103 mm[Hg] 103 mm[Hg] MEDGEN ([facility]) Body weight 194 lb 194 lb MEDGEN ([facility]) Body height 70.25 in 70.25 in MEDGEN ([facility]) Heart rate 84 /min 84 /min MEDGEN ([facility]) Respiratory rate 17 /min 17 /min MEDGEN ( [facility]) Body mass index 27.6 kg/m2 27.6 kg/m2 MEDGEN (S t (BMI) [Ratio] [facility], ) Diastolic blood 71 mm[Hg] 71 mm[Hg] MEDGEN (S t pressure [facility]) Systolic blood 103 mm[Hg] 103 mm[Hg] MEDGEN ([facility]) Body weight 194 lb 194 lb MEDGEN ([facility]) Body height 70.25 in 70.25 in MEDGEN ([facility]) Heart rate 84 /min 84 /min MEDGEN ([facility]) Respiratory rate 17 /min 17 /min MEDGEN ( [facility]) Body mass index 27.6 kg/m2 27.6 kg/m2 MEDGEN (S t (BMI) [Ratio] [facility], ) Diastolic blood 71 mm[Hg] 71 mm[Hg] MEDGEN (S t pressure [facility]) Systolic blood 103 mm[Hg] 103 mm[Hg] MEDGEN ([facility]) Body weight 194 lb 194 lb MEDGEN ([facility]) Body height 70.25 in 70.25 in MEDGEN ([facility]) Heart rate 84 /min 84 /min MEDGEN ([facility]) Respiratory rate 17 /min 17 /min MEDGEN ( [facility]) Body mass index 27.6 kg/m2 27.6 kg/m2 MEDGEN (S t (BMI) [Ratio] [facility], ) Diastolic blood 71 mm[Hg] 71 mm[Hg] MEDGEN (S t pressure [facility]) Systolic blood 103 mm[Hg] 103 mm[Hg] MEDGEN ([facility]) Body weight 194 lb 194 lb MEDGEN ([facility]) Body height 70.25 in 70.25 in MEDGEN ([facility]) Diastolic blood 70 mm[Hg] 70 mm[Hg] MEDGEN (S t pressure [facility]) Systolic blood 128 mm[Hg] 128 mm[Hg] MEDGEN ([facility]) Body weight 193 lb 193 lb MEDGEN ([facility]) Body height 70.25 in 70.25 in MEDGEN ([facility]) Heart rate 78 /min 78 /min MEDGEN ([facility]) Respiratory rate 15 /min 15 /min MEDGEN ( [facility]) Body temperature 100.4 F 100.4 F MEDGEN ( [facility]) Inhaled oxygen 95 % 95 % MEDGEN ([facility], ) Body mass index 27.5 kg/m2 27.5 kg/m2 MEDGEN (S t (BMI) [Ratio] [facility], ) Heart rate 78 /min 78 /min MEDGEN ([facility]) Respiratory rate 15 /min 15 /min MEDGEN ( [facility]) Body temperature 100.4 F 100.4 F MEDGEN ( [facility]) Inhaled oxygen 95 % 95 % MEDGEN ([facility], ) Body mass index 27.5 kg/m2 27.5 kg/m2 MEDGEN (S t (BMI) [Ratio] [facility], ) Diastolic blood 70 mm[Hg] 70 mm[Hg] MEDGEN (S t [facility]) Systolic blood 128 mm[Hg] 128 mm[Hg] MEDGEN ([facility]) Body weight 193 lb 193 lb MEDGEN ([facility]) Body height 70.25 in 70.25 in MEDGEN ([facility]) Heart rate 78 /min 78 /min MEDGEN ([facility]) Respiratory rate 15 /min 15 /min MEDGEN ( [facility]) Body temperature 100.4 F 100.4 F MEDGEN ( [facility]) Inhaled oxygen 95 % 95 % MEDGEN ([facility], ) Body mass index 27.5 kg/m2 27.5 kg/m2 MEDGEN (S t (BMI) [Ratio] [facility], ) Diastolic blood 70 mm[Hg] 70 mm[Hg] MEDGEN (S t pressure [facility]) Systolic blood 128 mm[Hg] 128 mm[Hg] MEDGEN ([facility]) Body weight 193 lb 193 lb MEDGEN ([facility]) Body height 70.25 in 70.25 in MEDGEN ([facility]) Heart rate 78 /min 78 /min MEDGEN ([facility]) Respiratory rate 15 /min 15 /min MEDGEN ( [facility]) Body temperature 100.4 F 100.4 F MEDGEN ( [facility]) Inhaled oxygen 95 % 95 % MEDGEN ([facility], ) Body mass index 27.5 kg/m2 27.5 kg/m2 MEDGEN (S t (BMI) [Ratio] [facility], ) Diastolic blood 70 mm[Hg] 70 mm[Hg] MEDGEN (S [facility]) Systolic blood 128 mm[Hg] 128 mm[Hg] MEDGEN ([facility]) Body weight 193 lb 193 lb MEDGEN ([facility]) Body height 70.25 in 70.25 in MEDGEN ([facility]) Heart rate 78 /min 78 /min MEDGEN ([facility]) Respiratory rate 15 /min 15 /min MEDGEN ( [facility]) Body temperature 100.4 F 100.4 F MEDGEN ( [facility]) Inhaled oxygen 95 % 95 % MEDGEN ([facility], ) Body mass index 27.5 kg/m2 27.5 kg/m2 MEDGEN (S t (BMI) [Ratio] [facility]) Diastolic blood 70 mm[Hg] 70 mm[Hg] MEDGEN ([facility]) Systolic blood 128 mm[Hg] 128 mm[Hg] MEDGEN ([facility]) Body weight 193 lb 193 lb MEDGEN ([facility]) Body height 70.25 in 70.25 in MEDGEN ([facility]) Heart rate 82 /min 82 /min MEDGEN ([facility]) Respiratory rate 15 /min 15 /min MEDGEN ( [facility]) Body mass index 27.5 kg/m2 27.5 kg/m2 MEDGEN (S t (BMI) [Ratio] [facility]) Diastolic blood 61 mm[Hg] 61 mm[Hg] MEDGEN (S [facility]) Systolic blood 110 mm[Hg] 110 mm[Hg] MEDGEN ([facility]) Body weight 193 lb 193 lb MEDGEN ([facility]) Heart rate 82 /min 82 /min MEDGEN ([facility] , ) Respiratory rate 15 /min 15 /min MEDGEN ( [facility] , ) Body mass index 27.5 kg/m2 27.5 kg/m2 MEDGEN (S t (BMI) [Ratio] [facility], ) Diastolic blood 61 mm[Hg] 61 mm[Hg] MEDGEN (S t pressure [facility] , ) Systolic blood 110 mm[Hg] 110 mm[Hg] MEDGEN ([facility] , ) Body weight 193 lb 193 lb MEDGEN ([facility]) Body height 70.25 in 70.25 in MEDGEN ([facility]) Heart rate 82 /min 82 /min MEDGEN ([facility]) Respiratory rate 15 /min 15 /min MEDGEN ( [facility]) Body mass index 27.5 kg/m2 27.5 kg/m2 MEDGEN (S t (BMI) [Ratio] [facility], ) Diastolic blood 61 mm[Hg] 61 mm[Hg] MEDGEN (S t pressure [facility] , ) Systolic blood 110 mm[Hg] 110 mm[Hg] MEDGEN ([facility]) Body weight 193 lb 193 lb MEDGEN ([facility]) Body height 70.25 in 70.25 in MEDGEN ([facility]) Body height 70.25 in 70.25 in MEDGEN ([facility]) Heart rate 82 /min 82 /min MEDGEN ([facility]) Respiratory rate 15 /min 15 /min MEDGEN ( [facility]) Body mass index 27.5 kg/m2 27.5 kg/m2 MEDGEN (S t (BMI) [Ratio] [facility], ) Diastolic blood 61 mm[Hg] 61 mm[Hg] MEDGEN (S t pressure [facility] , ) Systolic blood 110 mm[Hg] 110 mm[Hg] MEDGEN ([facility] , ) Body weight 193 lb 193 lb MEDGEN ([facility]) Body height 70.25 in 70.25 in MEDGEN ([facility]) Heart rate 82 /min 82 /min MEDGEN ([facility]) Respiratory rate 15 /min 15 /min MEDGEN ( [facility]) Body mass index 27.5 kg/m2 27.5 kg/m2 MEDGEN (S t (BMI) [Ratio] [facility]) Diastolic blood 61 mm[Hg] 61 mm[Hg] MEDGEN (S t pressure [facility]) Systolic blood 110 mm[Hg] 110 mm[Hg] MEDGEN ([facility]) Body weight 193 lb 193 lb MEDGEN ([facility]) Body height 70.25 in 70.25 in MEDGEN ([facility]) Heart rate 88 /min 88 /min MEDGEN ([facility]) Respiratory rate 16 /min 16 /min MEDGEN ( [facility]) Body temperature 98.5 F 98.5 F MEDGEN ( [facility]) Inhaled oxygen 95 % 95 % MEDGEN ([facility], ) Body mass index 27.9 kg/m2 27.9 kg/m2 MEDGEN (S t (BMI) [Ratio] [facility]) Diastolic blood 80 mm[Hg] 80 mm[Hg] MEDGEN (S t pressure [facility]) Systolic blood 130 mm[Hg] 130 mm[Hg] MEDGEN ([facility]) Body weight 196 lb 196 lb MEDGEN ([facility]) Body height 70.25 in 70.25 in MEDGEN ([facility]) Heart rate 88 /min 88 /min MEDGEN ([facility]) Respiratory rate 16 /min 16 /min MEDGEN ( [facility]) Body temperature 98.5 F 98.5 F MEDGEN ( [facility]) Inhaled oxygen 95 % 95 % MEDGEN ([facility]) Body mass index 27.9 kg/m2 27.9 kg/m2 MEDGEN (S t (BMI) [Ratio] [facility], ) Diastolic blood 80 mm[Hg] 80 mm[Hg] MEDGEN (S t pressure [facility]) Systolic blood 130 mm[Hg] 130 mm[Hg] MEDGEN ([facility] , ) Body weight 196 lb 196 lb MEDGEN ([facility]) Body height 70.25 in 70.25 in MEDGEN ([facility]) Heart rate 88 /min 88 /min MEDGEN ([facility]) Respiratory rate 16 /min 16 /min MEDGEN ( [facility]) Body temperature 98.5 F 98.5 F MEDGEN ( [facility]) Inhaled oxygen 95 % 95 % MEDGEN ([facility], ) Body mass index 27.9 kg/m2 27.9 kg/m2 MEDGEN (S t (BMI) [Ratio] [facility], ) Diastolic blood 80 mm[Hg] 80 mm[Hg] MEDGEN (S t pressure [facility] , ) Systolic blood 130 mm[Hg] 130 mm[Hg] MEDGEN ([facility] , ) Body weight 196 lb 196 lb MEDGEN ([facility]) Body height 70.25 in 70.25 in MEDGEN ([facility]) Heart rate 88 /min 88 /min MEDGEN ([facility]) Respiratory rate 16 /min 16 /min MEDGEN ( [facility]) Body temperature 98.5 F 98.5 F MEDGEN ( [facility]) Inhaled oxygen 95 % 95 % MEDGEN ([facility], ) Body mass index 27.9 kg/m2 27.9 kg/m2 MEDGEN (S t (BMI) [Ratio] [facility], ) Diastolic blood 80 mm[Hg] 80 mm[Hg] MEDGEN (S t pressure [facility]) Systolic blood 130 mm[Hg] 130 mm[Hg] MEDGEN ([facility] , ) Body weight 196 lb 196 lb MEDGEN ([facility]) Body height 70.25 in 70.25 in MEDGEN ([facility]) Heart rate 88 /min 88 /min MEDGEN ([facility]) Respiratory rate 16 /min 16 /min MEDGEN ( [facility]) Body temperature 98.5 F 98.5 F MEDGEN ( [facility]) Inhaled oxygen 95 % 95 % MEDGEN ([facility]) Body mass index 27.9 kg/m2 27.9 kg/m2 MEDGEN (S t (BMI) [Ratio] [facility]) Diastolic blood 80 mm[Hg] 80 mm[Hg] MEDGEN (S t [facility]) Systolic blood 130 mm[Hg] 130 mm[Hg] MEDGEN ([facility]) Body weight 196 lb 196 lb MEDGEN ([facility]) Body height 70.25 in 70.25 in MEDGEN ([facility]) Heart rate 76 /min 76 /min MEDGEN ([facility]) Respiratory rate 15 /min 15 /min MEDGEN ( [facility]) Body temperature 98.2 F 98.2 F MEDGEN ( [facility]) Body mass index 28.9 kg/m2 28.9 kg/m2 MEDGEN (S t (BMI) [Ratio] [facility]) Diastolic blood 74 mm[Hg] 74 mm[Hg] MED[facility] ([facility]) Systolic blood 142 mm[Hg] 142 mm[Hg] [facility] ([facility] [place]) Body weight 203 lb 203 lb [facility] ([facility]) Body height 70.25 in 70.25 in [facility] ([facility]) Heart rate 76 /min 76 /min [facility] ([facility]) Respiratory rate 15 /min 15 /min [facility] ( [facility]) Body temperature 98.2 F 98.2 F [facility] ( [facility]) Body mass index 28.9 kg/m2 28.9 kg/m2 MED[facility] (S t (BMI) [Ratio] [facility]) Diastolic blood 74 mm[Hg] 74 mm[Hg] [facility] ([facility]) Systolic blood 142 mm[Hg] 142 mm[Hg] [facility] ([facility] [place]) Body weight 203 lb 203 lb [facility] ([facility]) Body height 70.25 in 70.25 in [facility] ([facility]) Heart rate 76 /min 76 /min [facility] ([facility] [place]) Respiratory rate 15 /min 15 /min [facility] ( [facility] [place]) Body temperature 98.2 F 98.2 F [facility] ( [facility]) Body mass index 28.9 kg/m2 28.9 kg/m2 MED[facility] (S t (BMI) [Ratio] [facility], ) Diastolic blood 74 mm[Hg] 74 mm[Hg] MED[facility] (S t pressure [facility]) Systolic blood 142 mm[Hg] 142 mm[Hg] [facility] ([facility]) Body weight 203 lb 203 lb MED[facility] ([facility]) Body height 70.25 in 70.25 in [facility] ([facility]) Heart rate 76 /min 76 /min [facility] ([facility] [place]) Respiratory rate 15 /min 15 /min [facility] ( [facility]) Body temperature 98.2 F 98.2 F [facility] ( [facility]) Body mass index 28.9 kg/m2 28.9 kg/m2 MED[facility] (S t (BMI) [Ratio] [facility], ) Diastolic blood 74 mm[Hg] 74 mm[Hg] MEDGEN (S t pressure [facility] [place] [facility]) Systolic blood 142 mm[Hg] 142 mm[Hg] [facility] ([facility]) Body weight 203 lb 203 lb [facility] ([facility]) Body height 70.25 in 70.25 in [facility] ([facility]) Heart rate 76 /min 76 /min [facility] ([facility]) Respiratory rate 15 /min 15 /min [facility] ( [facility]) Body temperature 98.2 F 98.2 F [facility] ( [facility]) Body mass index 28.9 kg/m2 28.9 kg/m2 MED[facility] (S t (BMI) [Ratio] [facility], ) Diastolic blood 74 mm[Hg] 74 mm[Hg] MEDGEN (S t pressure [facility]) Systolic blood 142 mm[Hg] 142 mm[Hg] [facility] ([facility] [place] , ) Body weight 203 lb 203 lb [facility] ([facility] [place] , ) Body height 70.25 in 70.25 in [facility] ([facility] , )
[2020-04-12] MEDS ORDERED: BUPIVACAINE HCL/PF 0.25% (2.5MG/ML) 10 ML VIAL ONE (07:17)
[2020-04-12] MEDS ORDERED: LIDOCAINE HCL/PF 1% SDV 5ML VIAL ONE (07:17)
[2020-04-12] MEDS ORDERED: DEXAMETHASONE SOD PHOSPHATE/PF 10 MG/ML SDV ONE (07:17)
[2020-04-12] MEDS ORDERED: BUPIVACAINE HCL/PF 0.75% 10 ML VIAL ONE (07:18)
--- NOTE | 2020-04-12 07:55 | PROC ---
Procedure Note Procedure: Pre procedure Diagnosis: Lumbar Spinal Stenosis/ Lumbar radiculopathy Post Procedure Diagnosis: same Anesthesia: local Procedure Performed: L5-S1 Interlaminar epidural steroid injection After the risks and benefits were explained, informed consent was obtained. The patient was then taken to the procedure room and positioned prone on the procedure table. Time out was performed. Interlaminar space was identified using fluoroscopy. The skin was prepped and draped in the usual sterile fashion. The skin and soft tissues were anesthetized using 1% lidocaine. Under intermittent fluoroscopic guidance, a #22 gauge 3.5 inch [place] was successfully directed into the posterior epidural space at the L5-S1 level, using a posterior approach and loss of resistance technique. Needle placement was then confirmed with the injection of Omnipaque 180. Epidural flow was noted and no vascular uptake was noted. A 5 cc cocktail of 2 cc normal saline and 2 cc Dexamethasone 10 mg/mL and 1 cc of 1% lidocaine was then injected at the site. The patients response was again monitored and sensorimotor examination remained unchanged. The patient tolerated the procedure well and there were no complications. The patient was taken to the post procedure recovery area in good condition. Vital signs remained stable before, and after the procedure. The patient was given oral follow-up instructions. The patient was given a follow up appointment with me in the near future. Shankar Roman DO
[2020-04-12] MEDS ORDERED: IOHEXOL 180 MG/1 ML ML IJ ONE ×2 (08:35)
[2020-04-12] MEDS ORDERED: LIDOCAINE HCL 1% PRESERVATIVE FREE - 30ML VIAL IJ ONE (08:35)
[2020-04-12] MEDS ORDERED: DEXAMETHASONE SOD PHOSPHATE 4 MG/1 ML VIAL IVPUSH ONE (08:35)
[2020-04-12] MEDS ORDERED: BUPIVACAINE HCL/PF 0.5% (5MG/ML) 10 ML VIAL IJ ONE (08:35)
[2020-04-12] MEDS ORDERED: BUPIVACAINE HCL 0.25% 125 MG/50 ML VIAL NR ONE (08:35)
[2020-04-12] MEDS ORDERED: DEXAMETHASONE SOD PHOSPHATE 10 MG/1 ML VIAL IM ONE (08:35)
[2020-04-12 08:55] VITALS: TEMP 97.7
[2020-04-12 09:39] VITALS: BP 150/86; PULSE 79
== END 2020-04-12 09:42 | disposition home or self-care (01) ==
LOC: JASU-SURG 04:54
PROVIDERS: ATTEND Pain Medicine Pain Medicine
PROC: 3E0R33Z Introduction of Anti-inflammatory into Spinal Canal, Percutaneous Approach (ICD-10-PCS; 2020-04-12)
PROC: 3E0R3BZ Introduction of Anesthetic Agent into Spinal Canal, Percutaneous Approach (ICD-10-PCS; principal; 2020-04-12 08:30)
DX: M48.061 Spinal stenosis, lumbar region without neurogenic claudication (principal); M54.16 Radiculopathy, lumbar region
CPT/HCPCS: 76000-TC-FY; J1100

== ENCOUNTER 2021-02-13 13:53 | Emergency (ER) | payer OTHER ==
[2021-02-14 12:08] LABS: SARS-CoV-2 NAA Not Detected (Not Detected)
== END 2021-02-13 14:06 | disposition home or self-care (01) ==
LOC: JVIRT 13:53
DX: Z11.52 Encounter for screening for COVID-19 (principal)
CPT/HCPCS: C9803; Q3014-GT; U0003; U0005

== ENCOUNTER 2023-05-06 11:18 | Emergency (ER) | payer OTHER ==
[2023-05-06 11:26] VITALS: BP 130/76; PULSE 75; RESP 18; TEMP 98.3; BMI 26.4
== END 2023-05-06 12:30 | disposition home or self-care (01) ==
LOC: FER 11:18
DX: L53.9 Erythematous condition, unspecified (principal); M79.674 Pain in right toe(s); R22.41 Localized swelling, mass and lump, right lower limb; M10.9 Gout, unspecified
CPT/HCPCS: 73660-TC-FY; 99283-25

== ENCOUNTER 2024-03-14 05:14 | Day surgery (SDC) | payer OTHER ==
[2024-03-07 12:08] VITALS: BMI 27.6
[2024-03-14 08:54] VITALS: TEMP 98.1
[2024-03-14 09:36] VITALS: RESP 18
[2024-03-14 09:39] VITALS: BP 152/64; PULSE 72
== END 2024-03-14 10:00 | disposition home or self-care (01) ==
LOC: JASU-ENDO 05:14
PROVIDERS: ATTEND Internal Medicine Gastroenterology
PROC: 0DJ08ZZ Inspection of Upper Intestinal Tract, Via Natural or Artificial Opening Endoscopic (ICD-10-PCS; 2024-03-14)
PROC: 0DJD8ZZ Inspection of Lower Intestinal Tract, Via Natural or Artificial Opening Endoscopic (ICD-10-PCS; principal; 2024-03-14 08:00)
DX: Z12.11 Encounter for screening for malignant neoplasm of colon (principal); K63.5 Polyp of colon; K64.2 Third degree hemorrhoids; K64.4 Residual hemorrhoidal skin tags; K59.00 Constipation, unspecified; K44.9 Diaphragmatic hernia without obstruction or gangrene; K21.00 Gastro-esophageal reflux disease with esophagitis, without bleeding; K31.7 Polyp of stomach and duodenum; D50.0 Iron deficiency anemia secondary to blood loss (chronic); K92.1 Melena; R19.5 Other fecal abnormalities
CPT/HCPCS: 43235; G0105